=== PATIENT | female | born 1960 | race Caucasian/White ===

== ENCOUNTER 2020-01-18 12:16 | Outpatient (REF) | payer OTHER, SELFPAY ==
--- NOTE | 2020-01-18 12:52 | XR_ITS ---
EXAMINATION: XR FOOT, RIGHT CLINICAL INFORMATION: Pain COMPARISON: Previous x-ray November 2015 TECHNIQUE: AP, lateral, and oblique views of the right foot. FINDINGS: Bone alignment is normal. No fracture or dislocation is seen. Joint spaces are normal. There are calcaneal spurs. Soft tissues are otherwise normal. XR/XR foot RT 2V IMPRESSION: Calcaneal spurs.
[2020-01-18 14:21] LABS: Alanine Aminotransferase 18 U/L (0-31); Albumin Level 3.9 g/dL (3.5-5.0); Alkaline Phosphatase 95 U/L (39-117); Anion Gap 12 (12-20); Aspartate Amino Transferase 19 U/L (5-31); Bilirubin Total 0.5 mg/dL (0.0-1.0); Blood Urea Nitrogen 15 mg/dL (9-16); Calcium 8.8 mg/dL (8.4-10.2); Carbon Dioxide 28 mmol/L (22-29); Chloride 105 mmol/L (96-108); Cholesterol 213 mg/dL; Estimated Glomerular Filt Rate > 60; Glucose Fasting 86 mg/dL (60-99); HDL Cholesterol 49 mg/dL; LDL Cholesterol Calculated 148 mg/dl; Sodium 141 mmol/L (135-145); Total Protein 6.8 g/dL (6.5-8.0); Triglycerides 82 mg/dL
== END 2020-01-18 12:17 | disposition home or self-care (01) ==
LOC: HO.LAB 12:16
PROVIDERS: PCP Internal Medicine; Visit Provider Internal Medicine
DX: M79.671 Pain in right foot (principal); E78.00 Pure hypercholesterolemia, unspecified
CPT/HCPCS: 73620; 80053; 80061

== ENCOUNTER 2020-02-11 11:50 | Outpatient (REF) | payer OTHER, SELFPAY ==
--- NOTE | 2020-02-11 | MM_ITS ---
EXAMINATION: MM SCREENING DIGITAL BREAST TOMOSYNTHESIS, BILATERAL CLINICAL INFORMATION: Screening. Asymptomatic. The lifetime risk of breast cancer based on the Tyrer-Cuzick Model is 6.1%. COMPARISON: Mammography: November 14, 2018 and studies dating back to June 12, 2011 TECHNIQUE: Digital breast tomosynthesis is performed in both the craniocaudal and mediolateral oblique views along with computer-aided detection (CAD). Synthesized 2D images are generated from the tomosynthesis. FINDINGS: There are scattered areas of fibroglandular density (ACR BI-RADS breast composition Category b). There are no significant masses, abnormal calcifications, or other abnormalities. There are numerous bilateral stable benign-appearing calcifications. MM/MM tomosynthesis screening BI IMPRESSION: There are no significant changes from prior study. ASSESSMENT: BI-RADS 1: Negative RECOMMENDATION: Routine annual mammography screening. This patient's information was entered into a reminder system with a target due date for their next mammogram.
== END 2020-02-11 11:51 | disposition home or self-care (01) ==
LOC: HO.MAMMO 11:50
PROVIDERS: PCP Internal Medicine; Visit Provider Internal Medicine
DX: Z12.31 Encounter for screening mammogram for malignant neoplasm of breast (principal)
CPT/HCPCS: 77063; 77067

== ENCOUNTER 2020-02-18 12:41 | Outpatient (REF) | payer OTHER, SELFPAY ==
--- NOTE | 2020-02-18 12:46 | XR_ITS ---
EXAMINATION: XR KNEE, LEFT CLINICAL INFORMATION: Left knee pain COMPARISON: AP standing view both knees from 10/21/2014 TECHNIQUE: AP and lateral views of the left knee . FINDINGS: Obese body habitus. No fracture, subluxation or joint effusion. Moderate loss of medial tibiofemoral joint space with genu varus deformity. Subchondral cysts and osteophytes at the degenerated medial compartment. There are osteophytes of the degenerated patellofemoral and lateral tibiofemoral compartments, as well. No suspicious lytic or osteoblastic lesion. XR/XR knee LT 2V IMPRESSION: Mild worsening of tricompartmental osteoarthrosis of the left knee compared to 10/21/2014.
== END 2020-02-18 12:42 | disposition home or self-care (01) ==
LOC: HO.XRAY 12:41
PROVIDERS: Visit Provider Internal Medicine
DX: M25.562 Pain in left knee (principal)
CPT/HCPCS: 73560

== ENCOUNTER → 2020-02-19 11:03 | Outpatient (BNVA) | payer OTHER, SELFPAY | PROVIDERS: PCP Internal Medicine; Referring Provider Internal Medicine; Visit Provider Hospitalist | DX: Z76.89 Persons encountering health services in other specified circumstances (principal) ==

== ENCOUNTER → 2020-04-12 10:36 | Outpatient (BNVA) | payer OTHER, SELFPAY | PROVIDERS: PCP Internal Medicine; Visit Provider Hospitalist ==

== ENCOUNTER 2020-06-17 08:42 | Outpatient (REF) | payer OTHER, SELFPAY ==
[2020-06-17 10:03] LABS: Alanine Aminotransferase 12 U/L (0-31); Albumin Level 3.8 g/dL (3.5-5.0); Alkaline Phosphatase 89 U/L (39-117); Anion Gap 11 (12-20); Aspartate Amino Transferase 16 U/L (5-31); Blood Urea Nitrogen 17 mg/dL (9-16); Calcium 8.9 mg/dL (8.4-10.2); Carbon Dioxide 27 mmol/L (22-29); Chloride 109 mmol/L (96-108); Cholesterol 223 mg/dL; Estimated Glomerular Filt Rate > 60; Glucose Fasting 95 mg/dL (60-99); HDL Cholesterol 50 mg/dL; LDL Cholesterol Calculated 155 mg/dl; Potassium 4.2 mmol/L (3.3-5.1); Sodium 143 mmol/L (135-145); Total Protein 6.9 g/dL (6.5-8.0); Triglycerides 92 mg/dL
[2020-06-17 10:15] LABS: Bilirubin Total 0.4 mg/dL (0.0-1.0)
== END 2020-06-17 08:43 | disposition home or self-care (01) ==
LOC: HO.LAB 08:42
PROVIDERS: PCP Internal Medicine; Visit Provider Internal Medicine
DX: E78.00 Pure hypercholesterolemia, unspecified (principal); E78.5 Hyperlipidemia, unspecified
CPT/HCPCS: 36415; 80053; 80061

== ENCOUNTER → 2020-07-12 12:56 | Outpatient (BNVA) | payer OTHER, SELFPAY | PROVIDERS: PCP Internal Medicine; Visit Provider Hospitalist | DX: K21.9 Gastro-esophageal reflux disease without esophagitis (principal); G47.33 Obstructive sleep apnea (adult) (pediatric); J45.20 Mild intermittent asthma, uncomplicated; Z99.89 Dependence on other enabling machines and devices | CPT/HCPCS: 99212 ==

== ENCOUNTER → 2020-12-07 10:58 | Outpatient (BNVA) | payer OTHER, SELFPAY | PROVIDERS: PCP Internal Medicine; Referring Provider Internal Medicine; Visit Provider Internal Medicine Cardiovascular Disease | DX: I48.0 Paroxysmal atrial fibrillation (principal) | CPT/HCPCS: 93005; 99212 ==

== ENCOUNTER → 2020-12-26 10:46 | Outpatient (REF) | payer OTHER, SELFPAY ==
--- NOTE | 2020-12-26 10:50 | HM_ITS ---
Total monitoring time 5 days. Underlying rhythm is sinus. Minimum 56/Min. Maximum 139/Min. Average 80/Min. No atrial fibrillation or flutter. No pauses or AV blocks. 51 supraventricular episodes; longest 18 beats. Rare supraventricular ectopy with a burden of 0.19%. Rare ventricular ectopy with a burden of 0.35%. No patient events. MTDD
== END ==
LOC: HO.CARD 10:46
PROVIDERS: PCP Internal Medicine; Visit Provider Internal Medicine Cardiovascular Disease
DX: I48.0 Paroxysmal atrial fibrillation (principal)
CPT/HCPCS: 93242

== ENCOUNTER 2021-01-16 11:13 | Outpatient (REF) | payer OTHER, SELFPAY ==
[2021-01-16 11:48] LABS: COVID-19 Test Negative (Negative)
== END 2021-01-16 11:14 | disposition home or self-care (01) ==
LOC: HO.LAB 11:13
PROVIDERS: Visit Provider Internal Medicine
DX: Z20.822 Contact with and (suspected) exposure to COVID-19 (principal)
CPT/HCPCS: 36415; 87635; C9803

== ENCOUNTER → 2021-02-20 12:27 | Outpatient (BNVA) | payer OTHER, SELFPAY | PROVIDERS: PCP Internal Medicine; Referring Provider Internal Medicine; Visit Provider Internal Medicine Cardiovascular Disease | DX: I48.0 Paroxysmal atrial fibrillation (principal); R00.2 Palpitations | CPT/HCPCS: 99212 ==

== ENCOUNTER 2021-03-31 12:14 | Outpatient (REF) | payer OTHER, SELFPAY ==
[2021-03-31 12:30] LABS: Binax Internal Control QC Valid; Binax Now Covid-19 Ag Negative (Negative)
== END 2021-03-31 12:15 | disposition home or self-care (01) ==
LOC: HO.LAB 12:14
PROVIDERS: PCP Internal Medicine; Visit Provider Internal Medicine
DX: Z20.822 Contact with and (suspected) exposure to COVID-19 (principal)
CPT/HCPCS: C9803

== ENCOUNTER 2021-05-12 11:21 | Outpatient (REF) | payer OTHER, SELFPAY ==
--- NOTE | ~2021-05-12 | MM_ITS ---
EXAMINATION: MM SCREENING DIGITAL BREAST TOMOSYNTHESIS, BILATERAL CLINICAL INFORMATION: Screening. Asymptomatic. The lifetime risk of breast cancer based on the Tyrer-Cuzick Model is 5%. COMPARISON: Mammography: 02/11/2020, 11/14/2018, 11/12/2017, 09/14/2016 TECHNIQUE: Digital breast tomosynthesis is performed in both the craniocaudal and mediolateral oblique views along with computer-aided detection (CAD). Synthesized 2D images are generated from the tomosynthesis. FINDINGS: There are scattered areas of fibroglandular density (ACR BI-RADS breast composition Category b). There are no significant masses, abnormal calcifications, or other abnormalities. Parenchymal pattern is similar to prior studies. Nodular asymmetries outer right breast are stable. There is biopsy clip marker again seen mid 9:00 left breast. Neither breast shows developing density or interval architectural changes or abnormal calcifications. The axilla and skin contours are unremarkable. No significant changes. MM/MM tomosynthesis screening BI IMPRESSION: No significant changes from prior exams. ASSESSMENT: BI-RADS 2: Benign RECOMMENDATION: Routine annual mammography screening. This patient's information was entered into a reminder system with a target due date for their next mammogram.
== END 2021-05-12 11:22 | disposition home or self-care (01) ==
LOC: HO.MAMMO 11:21
PROVIDERS: Visit Provider Internal Medicine
DX: Z12.31 Encounter for screening mammogram for malignant neoplasm of breast (principal)
CPT/HCPCS: 77063; 77067

== ENCOUNTER → 2021-05-29 10:10 | Outpatient (BNVA) | payer OTHER, SELFPAY | PROVIDERS: PCP Internal Medicine; Visit Provider Hospitalist | DX: G47.33 Obstructive sleep apnea (adult) (pediatric) (principal); R40.0 Somnolence; J45.20 Mild intermittent asthma, uncomplicated; J06.9 Acute upper respiratory infection, unspecified; I48.0 Paroxysmal atrial fibrillation; I10 Essential (primary) hypertension; E78.00 Pure hypercholesterolemia, unspecified; E55.9 Vitamin D deficiency, unspecified; K21.9 Gastro-esophageal reflux disease without esophagitis; E66.01 Morbid (severe) obesity due to excess calories; Z68.41 Body mass index [BMI] 40.0-44.9, adult; Z88.8 Allergy status to other drugs, medicaments and biological substances; Z99.89 Dependence on other enabling machines and devices; Z79.899 Other long term (current) drug therapy | CPT/HCPCS: 99212 ==

== ENCOUNTER 2021-06-28 10:33 | Outpatient (REF) | payer OTHER, SELFPAY ==
[2021-06-28 11:04] LABS: MANUAL DIFF FLAG NO
[2021-06-28 11:46] LABS: Basophils Absolute Auto 0.1 X10*3/uL (0.0-0.2); Eosinophils Absolute Auto 0.1 X10*3/uL (0.0-0.4); Eosinophils Percent Auto 1.4 % (0-4); Hematocrit 38.9 % (37.0-47.0); Hemoglobin 12.9 g/dl (12.0-16.0); Imm Gran Abs Auto 0.03 X10*3/uL (0.00-0.03); Imm Gran Pct Auto 0.5 % (0.0-0.4); Lymphocytes Absolute Auto 2.1 X10*3/uL (1.2-4.9); Lymphocytes Percent Auto 32.5 % (20-40); Mean Corpuscular HGB Conc 33.2 g/dl (31.0-35.0); Mean Corpuscular Hemoglobin 29.6 pg (27.0-33.0); Mean Corpuscular Volume 89.2 fL (80.0-98.0); Mean Platelet Volume 10.5 fL (9.4-12.3); Monocytes Absolute Auto 0.5 X10*3/uL (0.1-1.2); Monocytes Percent Auto 8.1 % (2-11); Neutrophils Absolute Auto 3.6 x10*3/uL (2.0-8.3); Neutrophils Percent Auto 56.5 % (45-73); Platelet Count 353 X10*3/uL (160-400); Red Blood Count 4.36 X10*6/uL (4.20-5.50); Red Cell Distribution Width 14.7 % (11.0-16.0); White Blood Count 6.3 X10*3/uL (4.8-10.8)
[2021-06-28 12:26] LABS: Alanine Aminotransferase 15 U/L (0-31); Albumin Level 3.8 g/dL (3.5-5.0); Alkaline Phosphatase 101 U/L (39-117); Anion Gap 11 (12-20); Aspartate Amino Transferase 17 U/L (5-31); Bilirubin Total 0.6 mg/dL (0.0-1.0); Blood Urea Nitrogen 17 mg/dL (9-16); C Reactive Protein 0.56 mg/dL (< or = 0.50); Calcium 9.5 mg/dL (8.4-10.2); Carbon Dioxide 28 mmol/L (22-29); Chloride 104 mmol/L (96-108); Cholesterol 210 mg/dL; Estimated Glomerular Filt Rate > 60; Glucose Fasting 89 mg/dL (60-99); HDL Cholesterol 43 mg/dL; LDL Cholesterol Calculated 143 mg/dl; Potassium 4.1 mmol/L (3.3-5.1); Rheumatoid Factor < 15.0 IU/mL (<15.0); Sodium 139 mmol/L (135-145); Total Protein 7.5 g/dL (6.5-8.0); Triglycerides 121 mg/dL
[2021-06-28 12:31] LABS: Erythrocyte Sedimentation Rate 36 MM/HR (0-20)
[2021-06-30 12:52] LABS: Anti Nuclear Antibody Screen NEGATIVE (NEGATIVE)
[2021-06-30 21:22] LABS: Anti DNA DS Antibody 1 IU/mL
[2021-06-30 23:52] LABS: Cyclic Citrullinated Peptide <16 UNITS
[2021-07-02 14:17] LABS: Vitamin D 25-OH, D2 <4 ng/mL; Vitamin D 25-OH, D3 29 ng/mL; Vitamin D 25-OH, Total 29 ng/mL (30-100)
== END 2021-06-28 10:34 | disposition home or self-care (01) ==
LOC: HO.LAB 10:33
PROVIDERS: PCP Internal Medicine; Visit Provider Internal Medicine
DX: M25.50 Pain in unspecified joint (principal); E55.9 Vitamin D deficiency, unspecified; E78.5 Hyperlipidemia, unspecified; E66.9 Obesity, unspecified; D64.9 Anemia, unspecified
CPT/HCPCS: 36415; 80053; 80061; 82306; 85025; 85652; 86038; 86039; 86140; 86200; 86225; 86431

== ENCOUNTER → 2021-09-08 09:26 | Outpatient (BNVA) | payer OTHER, SELFPAY | PROVIDERS: PCP Internal Medicine | DX: R31.0 Gross hematuria (principal) | CPT/HCPCS: 99202 ==

== ENCOUNTER 2021-09-08 16:32 | Outpatient (REF) | payer OTHER, SELFPAY ==
[2021-09-08 16:40] LABS: Urine Cytology See Pathology rpt
== END 2021-09-08 16:33 | disposition home or self-care (01) ==
LOC: HO.LNP 16:32
DX: R31.9 Hematuria, unspecified (principal)
CPT/HCPCS: 88112

== ENCOUNTER 2021-10-26 08:46 | Outpatient (REF) | payer OTHER, SELFPAY ==
--- NOTE | ~2021-10-26 | US_ITS ---
EXAMINATION: US RETROPERITONEAL LIMITED (RENAL ONLY) CLINICAL INFORMATION: Gross hematuria. COMPARISON: Ultrasound kidneys and bladder 10/26/2016. Renal ultrasound 08/23/2016. X-ray abdomen KUB 04/09/2016. TECHNIQUE: Real-time imaging of the kidneys. FINDINGS: RIGHT KIDNEY: 11.0 x 5.6 x 5.6 cm (SAG x AP x TRV). The kidney is normal in size, contour, and echogenicity. Renal cortical thickness is normal. No calculi or focal parenchymal lesions. No hydronephrosis. LEFT KIDNEY: 12.6 x 4.8 x 5.0 cm (SAG x AP x TRV). The kidney is normal in size, contour, and echogenicity. Renal cortical thickness is normal. No renal calculi or hydronephrosis. There is an anechoic cyst midpole measuring 1.9 x 2.7 x 2.6 cm versus prominent renal pelvis. US/US renal BI IMPRESSION: Prominent renal pelvis versus midpole cyst measuring left kidney. No echogenic renal calculi seen.
== END 2021-10-26 08:47 | disposition home or self-care (01) ==
LOC: HO.US 08:46
DX: R31.0 Gross hematuria (principal)
CPT/HCPCS: 76775

== ENCOUNTER → 2021-11-06 15:24 | Outpatient (BNVA) | payer OTHER, SELFPAY | PROVIDERS: PCP Internal Medicine; Referring Provider Internal Medicine; Visit Provider Internal Medicine Cardiovascular Disease | DX: I48.0 Paroxysmal atrial fibrillation (principal); R00.2 Palpitations; E78.5 Hyperlipidemia, unspecified; G47.33 Obstructive sleep apnea (adult) (pediatric); Z79.899 Other long term (current) drug therapy | CPT/HCPCS: 93005; 99212 ==

== ENCOUNTER 2021-11-21 09:08 | Outpatient (REF) | payer OTHER, SELFPAY ==
[2021-11-21 09:26] LABS: MANUAL DIFF FLAG NO
[2021-11-21 09:54] LABS: Basophils Absolute Auto 0.1 X10*3/uL (0.0-0.2); Eosinophils Absolute Auto 0.1 X10*3/uL (0.0-0.4); Eosinophils Percent Auto 1.7 % (0-4); Hematocrit 37.2 % (37.0-47.0); Hemoglobin 12.1 g/dl (12.0-16.0); Imm Gran Abs Auto 0.01 X10*3/uL (0.00-0.03); Imm Gran Pct Auto 0.2 % (0.0-0.4); Lymphocytes Absolute Auto 1.9 X10*3/uL (1.2-4.9); Lymphocytes Percent Auto 36.5 % (20-40); Mean Corpuscular HGB Conc 32.5 g/dl (31.0-35.0); Mean Corpuscular Hemoglobin 28.9 pg (27.0-33.0); Mean Platelet Volume 10.6 fL (9.4-12.3); Monocytes Absolute Auto 0.5 X10*3/uL (0.1-1.2); Monocytes Percent Auto 9.9 % (2-11); Neutrophils Absolute Auto 2.7 x10*3/uL (2.0-8.3); Neutrophils Percent Auto 50.7 % (45-73); Platelet Count 324 X10*3/uL (160-400); Red Blood Count 4.18 X10*6/uL (4.20-5.50); Red Cell Distribution Width 14.8 % (11.0-16.0); White Blood Count 5.2 X10*3/uL (4.8-10.8)
[2021-11-21 10:26] LABS: Alanine Aminotransferase 17 U/L (0-31); Albumin Level 3.6 g/dL (3.5-5.0); Alkaline Phosphatase 101 U/L (39-117); Anion Gap 12 (12-20); Aspartate Amino Transferase 20 U/L (5-31); Bilirubin Total 0.4 mg/dL (0.0-1.0); Blood Urea Nitrogen 18 mg/dL (9-16); Calcium 9.2 mg/dL (8.4-10.2); Carbon Dioxide 29 mmol/L (22-29); Chloride 106 mmol/L (96-108); Cholesterol 214 mg/dL; Estimated Glomerular Filt Rate > 60; Glucose Fasting 93 mg/dL (60-99); HDL Cholesterol 50 mg/dL; LDL Cholesterol Calculated 147 mg/dl; Potassium 4.6 mmol/L (3.3-5.1); Sodium 142 mmol/L (135-145); Total Protein 6.9 g/dL (6.5-8.0); Triglycerides 88 mg/dL
== END 2021-11-21 09:09 | disposition home or self-care (01) ==
LOC: HO.LAB 09:08
PROVIDERS: PCP Internal Medicine; Visit Provider Internal Medicine
DX: R00.2 Palpitations (principal); E78.5 Hyperlipidemia, unspecified
CPT/HCPCS: 36415; 80053; 80061; 85025

== ENCOUNTER → 2021-11-28 11:05 | Outpatient (BNVA) | payer OTHER, SELFPAY | PROVIDERS: PCP Internal Medicine; Visit Provider Hospitalist | DX: G47.33 Obstructive sleep apnea (adult) (pediatric) (principal); J45.40 Moderate persistent asthma, uncomplicated; K21.9 Gastro-esophageal reflux disease without esophagitis; M79.89 Other specified soft tissue disorders; Z99.89 Dependence on other enabling machines and devices | CPT/HCPCS: 99212 ==

== ENCOUNTER → 2022-01-10 10:57 | Outpatient (REF) | payer OTHER, SELFPAY ==
--- NOTE | 2022-01-10 11:05 | HM_ITS ---
* Total monitoring time 7 days and 4 hours. * Underlying rhythm is sinus. Average ventricular rate 85/Min. Range 53 to 143/Min. * Occasional supraventricular ectopy. Short runs noted. Longest 23 beats. * Occasional ventricular ectopy. Some couplets but no runs. * No significant pauses or AV blocks. * Palpitations noted in patient diary could be from the above, but the exact times do not correlate. MTDD
== END ==
LOC: HO.CARD 10:57
PROVIDERS: PCP Internal Medicine; Visit Provider Internal Medicine Cardiovascular Disease
DX: R00.2 Palpitations (principal)
CPT/HCPCS: 93242

== ENCOUNTER 2022-01-18 11:03 | Outpatient (REF) | payer OTHER, SELFPAY ==
[2022-01-18 12:27] LABS: Alanine Aminotransferase 14 U/L (0-31); Albumin Level 3.9 g/dL (3.5-5.0); Alkaline Phosphatase 95 U/L (39-117); Anion Gap 16 (12-20); Aspartate Amino Transferase 20 U/L (5-31); Bilirubin Total 0.7 mg/dL (0.0-1.0); Blood Urea Nitrogen 19 mg/dL (9-16); Calcium 8.9 mg/dL (8.4-10.2); Carbon Dioxide 24 mmol/L (22-29); Chloride 105 mmol/L (96-108); Cholesterol 183 mg/dL; Estimated Glomerular Filt Rate > 60; Glucose Fasting 97 mg/dL (60-99); HDL Cholesterol 53 mg/dL; LDL Cholesterol Calculated 115 mg/dl; Potassium 4.1 mmol/L (3.3-5.1); Sodium 141 mmol/L (135-145); Total Protein 7.2 g/dL (6.5-8.0); Triglycerides 75 mg/dL
[2022-01-18 12:49] LABS: Appearance Urine Clear; Color Urine Dark Yellow; Glucose Urine UA Negative (Negative); Leukocyte Esterase Urine Negative (Negative); Nitrite Urine Negative (Negative); PH 5.5 (5.0-9.0); Specific Gravity - Urine >= 1.030 (1.005-1.025); UMIC TRIGGER UACC YES; Urine Blood Moderate (2+) (Negative); Urine Ketones 15 mg/dL (Negative); Urine Protein Trace mg/dL (Neg-Trace)
[2022-01-18 12:52] LABS: Bacteria Urine 1+ (None Seen); WBC Urine 0-5 /HPF (0-5)
[2022-01-18 13:01] LABS: Vitamin D 25-OH Total 37.8 ng/mL (>30)
== END 2022-01-18 11:04 | disposition home or self-care (01) ==
LOC: HO.LAB 11:03
PROVIDERS: PCP Internal Medicine; Visit Provider Internal Medicine
DX: E78.5 Hyperlipidemia, unspecified (principal); E55.9 Vitamin D deficiency, unspecified; R00.2 Palpitations; R31.0 Gross hematuria
CPT/HCPCS: 36415; 80053; 80061; 81001; 82306

== ENCOUNTER → 2022-02-07 14:04 | Outpatient (BNVA) | payer OTHER, SELFPAY | PROVIDERS: PCP Internal Medicine; Referring Provider Internal Medicine; Visit Provider Internal Medicine Cardiovascular Disease | DX: R00.2 Palpitations (principal); Z79.899 Other long term (current) drug therapy | CPT/HCPCS: 99212 ==

== ENCOUNTER 2022-02-23 13:51 | Outpatient (REF) | payer OTHER, SELFPAY ==
[2022-02-23 16:53] LABS: Urine Cytology See Pathology rpt
== END 2022-02-23 13:52 | disposition home or self-care (01) ==
LOC: HO.LAB 13:51
PROVIDERS: Visit Provider Urology
DX: R31.0 Gross hematuria (principal); R39.9 Unspecified symptoms and signs involving the genitourinary system; R82.71 Bacteriuria; R10.9 Unspecified abdominal pain
CPT/HCPCS: 51798; 87086; 88112; 99212

== ENCOUNTER 2022-05-24 12:52 | Outpatient (REF) | payer OTHER, SELFPAY | END 2022-05-24 12:53 | disposition home or self-care (01) | LOC: HO.US 12:52 | PROVIDERS: PCP Internal Medicine; Visit Provider Internal Medicine | DX: Z13.89 Encounter for screening for other disorder (principal) ==

== ENCOUNTER 2022-05-25 08:44 | Outpatient (REF) | payer OTHER, SELFPAY ==
--- NOTE | ~2022-05-25 | US_ITS ---
EXAMINATION: US COMPLETE ABDOMEN WITH LIVER ELASTOGRAPHY CLINICAL INFORMATION: Left upper quadrant pain. COMPARISON: Renal ultrasound 10/26/2021. TECHNIQUE: Real-time imaging of the abdominal viscera. Noninvasive ultrasound liver fibrosis assessment is performed using Taty ElastPQ point quantification shear wave elastography (2D-SWE) with a C5-2 MHz transducer. Multiple elastography samples are obtained. FINDINGS: PANCREAS: Normal. The visualized pancreatic head and body are normal in appearance. The remainder of the pancreas is obscured from visualization by the overlying bowel gas. ABDOMINAL AORTA: The proximal, middle, and distal aortic segments are normal in caliber. INFERIOR VENA CAVA: Visualized portions are normal. LIVER: The liver demonstrates normal size, contour and heterogeneous echotexture. No focal lesion or intrahepatic biliary duct dilatation. The right lobe measures 15.5 cm in length. The left lobe measures 11.2 cm in length. Portal flow is hepatopedal. Shear wave liver elastography median stiffness is 2.21 m/s (reference: normal median stiffness is 1.3 m/s or less). IQR/median stiffness to assess sampling precision is 0.09 (reference: good quality data set is IQR/median stiffness of 0.15 or less). GALLBLADDER: Normal. The gallbladder is physiologically distended without evidence of stones, sludge, polyps, wall thickening or pericholecystic fluid. COMMON BILE DUCT: Normal in caliber measuring 0.3 cm in diameter. RIGHT KIDNEY: Normal. No hydronephrosis. No renal calculi or focal parenchymal lesions. The kidney measures 9.9 cm in maximum dimension. LEFT KIDNEY: There is anechoic cyst in midpole measuring 2.0 x 2.8 x 2.8 cm. No hydronephrosis. No renal calculi or focal parenchymal lesions. The kidney measures 11.9 cm in maximum dimension. SPLEEN: Normal. The spleen measures 9.0 cm in maximum dimension. FREE FLUID: None. US/US abdomen comp w elastography IMPRESSION: 1. Heterogeneous echotexture of liver without focal lesion or intrahepatic ductal dilatation. 2. Midpole left renal simple cyst. 3. Liver elastography: The liver stiffness measures 2.21 m/s cACLD (ruled in). REFERENCE: Society of Radiologists in Ultrasound Liver Stiffness Thresholds (2019): LIVER STIFFNESS THRESHOLDS: *Liver Stiffness equal or less than 1.3 m/s: High probability of being normal. *Liver Stiffness less than 1.7 m/s: In the absence of other known clinical signs, rules out compensated advanced chronic liver disease. *Liver Stiffness 1.7-2.1 m/s: Suggestive of compensated advanced chronic liver disease but need further test for confirmation. *Liver Stiffness over 2.1 m/s: Rules in compensated advanced chronic liver disease. *Liver Stiffness over 2.4 m/s: Suggestive of clinically significant portal hypertension. QUALITY OF DATA SET: *IQR/Median value equal or less than 0.15 implies a quality data set. *IQR/Median value over 0.15 implies a poor quality data set. SIGNIFICANT CHANGE FROM PRIOR EXAM: Significant change if liver stiffness measurement is 10% or greater from prior exam. OTHER CONSIDERATIONS: The stage of liver fibrosis may be overestimated in the setting of acute hepatitis, liver inflammation, elevated liver function tests, hepatic vascular congestion, obstructive cholestasis, non-fasting state, and infiltrative diseases such as amyloidosis and lymphoma. In some patients with NAFLD, the liver stiffness thresholds for compensated advanced chronic liver disease may be lower. In causes other than viral hepatitis and NAFLD, liver stiffness thresholds are not well established.
== END 2022-05-25 08:45 | disposition home or self-care (01) ==
LOC: HO.US 08:44
PROVIDERS: PCP Internal Medicine; Visit Provider Internal Medicine
DX: R10.12 Left upper quadrant pain (principal)
CPT/HCPCS: 76705; 76981

== ENCOUNTER → 2022-05-28 10:57 | Outpatient (BNVA) | payer OTHER, SELFPAY | PROVIDERS: PCP Internal Medicine; Visit Provider Hospitalist | DX: G47.33 Obstructive sleep apnea (adult) (pediatric) (principal); R06.00 Dyspnea, unspecified; J45.40 Moderate persistent asthma, uncomplicated; R10.12 Left upper quadrant pain; K21.9 Gastro-esophageal reflux disease without esophagitis; Z99.89 Dependence on other enabling machines and devices | CPT/HCPCS: 99212 ==

== ENCOUNTER → 2022-05-30 14:36 | Outpatient (BNVA) | payer OTHER, SELFPAY | PROVIDERS: PCP Internal Medicine; Referring Provider Internal Medicine; Visit Provider Internal Medicine Cardiovascular Disease | DX: R00.2 Palpitations (principal); E78.00 Pure hypercholesterolemia, unspecified | CPT/HCPCS: 93005; 99212 ==

== ENCOUNTER 2022-06-25 13:58 | Outpatient (REF) | payer OTHER, SELFPAY ==
--- NOTE | ~2022-06-25 | MM_ITS ---
EXAMINATION: MM SCREENING DIGITAL BREAST TOMOSYNTHESIS, BILATERAL CLINICAL INFORMATION: Screening. Asymptomatic. The lifetime risk of breast cancer based on the Tyrer-Cuzick Model is 4.4%. COMPARISON: Mammography: May 12, 2021 and studies dating back to August 18, 2015 TECHNIQUE: Digital breast tomosynthesis is performed in both the craniocaudal and mediolateral oblique views along with computer-aided detection (CAD). Synthesized 2D images are generated from the tomosynthesis. FINDINGS: There are scattered areas of fibroglandular density (ACR BI-RADS breast composition Category b). There are no new significant masses, abnormal calcifications, or other abnormalities. MM/MM tomosynthesis screening BI IMPRESSION: No significant changes from prior exam. ASSESSMENT: BI-RADS 1: Negative RECOMMENDATION: Routine annual mammography screening. This patient's information was entered into a reminder system with a target due date for their next mammogram.
== END 2022-06-25 13:59 | disposition home or self-care (01) ==
LOC: HO.MAMMO 13:58
PROVIDERS: PCP Internal Medicine; Visit Provider Internal Medicine
DX: Z12.31 Encounter for screening mammogram for malignant neoplasm of breast (principal)
CPT/HCPCS: 77063; 77067

== ENCOUNTER 2022-07-20 13:24 | Outpatient (REF) | payer OTHER, SELFPAY ==
[2022-07-20 17:04] LABS: Urine Cytology See Pathology rpt
== END 2022-07-20 13:25 | disposition home or self-care (01) ==
LOC: HO.LAB 13:24
PROVIDERS: PCP Internal Medicine; Visit Provider Urology
DX: R31.0 Gross hematuria (principal); R10.9 Unspecified abdominal pain; R39.9 Unspecified symptoms and signs involving the genitourinary system
CPT/HCPCS: 52000; 88112

== ENCOUNTER 2022-08-09 09:14 | Outpatient (REF) | payer OTHER, SELFPAY | END 2022-08-09 09:15 | disposition home or self-care (01) | LOC: HO.LAB 09:14 | PROVIDERS: PCP Internal Medicine; Visit Provider Internal Medicine | DX: R39.9 Unspecified symptoms and signs involving the genitourinary system (principal) | CPT/HCPCS: 87086 ==

== ENCOUNTER 2022-08-23 08:56 | Outpatient (REF) | payer OTHER, SELFPAY ==
[2022-08-23 09:11] LABS: MANUAL DIFF FLAG NO
[2022-08-23 09:32] LABS: Basophils Percent Auto 0.4 % (0-2); Eosinophils Absolute Auto 0.1 X10*3/uL (0.0-0.4); Eosinophils Percent Auto 0.9 % (0-4); Hematocrit 37.7 % (37.0-47.0); Hemoglobin 12.5 g/dl (12.0-16.0); Imm Gran Abs Auto 0.03 X10*3/uL (0.00-0.03); Imm Gran Pct Auto 0.4 % (0.0-0.4); Lymphocytes Percent Auto 28.1 % (20-40); Mean Corpuscular HGB Conc 33.2 g/dl (31.0-35.0); Mean Corpuscular Hemoglobin 29.7 pg (27.0-33.0); Mean Corpuscular Volume 89.5 fL (80.0-98.0); Mean Platelet Volume 10.6 fL (9.4-12.3); Monocytes Absolute Auto 0.6 X10*3/uL (0.1-1.2); Monocytes Percent Auto 7.8 % (2-11); Neutrophils Absolute Auto 4.4 x10*3/uL (2.0-8.3); Neutrophils Percent Auto 62.4 % (45-73); Platelet Count 331 X10*3/uL (160-400); Red Blood Count 4.21 X10*6/uL (4.20-5.50); Red Cell Distribution Width 14.6 % (11.0-16.0); White Blood Count 7.1 X10*3/uL (4.8-10.8)
[2022-08-23 10:50] LABS: Alanine Aminotransferase 12 U/L (0-31); Albumin Level 3.7 g/dL (3.5-5.0); Alkaline Phosphatase 89 U/L (39-117); Anion Gap 12 (12-20); Aspartate Amino Transferase 16 U/L (5-31); Bilirubin Total 0.6 mg/dL (0.0-1.0); Blood Urea Nitrogen 21 mg/dL (9-16); Calcium 8.9 mg/dL (8.4-10.2); Carbon Dioxide 26 mmol/L (22-29); Chloride 107 mmol/L (96-108); Cholesterol 216 mg/dL; Estimated Glomerular Filt Rate > 60; Glucose Fasting 90 mg/dL (60-99); HDL Cholesterol 46 mg/dL; Iron 59 mcg/dL (30-160); LDL Cholesterol Calculated 148 mg/dl; Percent Iron Saturation 19 % (15-50); Sodium 141 mmol/L (135-145); Total Iron Binding Capacity 306 mcg/dL (228-428); Total Protein 7.4 g/dL (6.5-8.0); Triglycerides 110 mg/dL; Unsaturated Iron Binding 247 ug/dL
[2022-08-23 11:05] LABS: Vitamin D 25-OH Total 39.9 ng/mL (>30)
[2022-08-23 11:17] LABS: Folate 9.2 ng/mL (> or = 4.0); Vitamin B12 301 pg/mL (200-900)
== END 2022-08-23 08:57 | disposition home or self-care (01) ==
LOC: HO.LAB 08:56
PROVIDERS: Internal Medicine; Visit Provider Urology
DX: E66.01 Morbid (severe) obesity due to excess calories (principal); Z68.41 Body mass index [BMI] 40.0-44.9, adult; E78.5 Hyperlipidemia, unspecified; E53.8 Deficiency of other specified B group vitamins; E55.9 Vitamin D deficiency, unspecified; D64.9 Anemia, unspecified
CPT/HCPCS: 36415; 80053; 80061; 82306; 82607; 82746; 83540; 85025

== ENCOUNTER 2022-09-03 08:58 | Outpatient (REF) | payer OTHER, SELFPAY ==
--- NOTE | ~2022-09-03 | CT_ITS ---
EXAMINATION: CT UROGRAM WITHOUT AND WITH CONTRAST CLINICAL INFORMATION: Hematuria COMPARISON: None available. TECHNIQUE: Noncontrast CT of the abdomen and pelvis is performed followed by split bolus contrast-enhanced images using 85 mL Omnipaque 350 contrast.? Postcontrast imaging is performed during the combined nephrogram and excretion phase. Sagittal and coronal reformatted images were obtained on the technologist's workstation for both the precontrast and postcontrast phases. This CT examination was performed using dose optimization techniques as appropriate, variously including the following: *Automated exposure control *Adjustment of mA and/or kV according to patient size (this includes techniques or standardized protocols for targeted exams where dose is matched to indication/reason for exam; i.e. extremities or head) *Use of iterative reconstruction technique DLP: 1039 mGy-cm FINDINGS: LUNG BASES: The visualized lung bases are unremarkable. LIVER, GALLBLADDER, AND BILIARY TREE: The liver is normal in size, shape, and attenuation. No focal hepatic lesion or biliary ductal dilatation is present. The gallbladder is unremarkable with no evidence of radiopaque gallstones, gallbladder wall thickening, or obvious pericholecystic inflammatory changes. PANCREAS: Unremarkable. SPLEEN: Unremarkable. ADRENAL GLANDS: Unremarkable. KIDNEYS AND URETERS: The kidneys are normal in size, shape, and attenuation. The left kidney measures 12.0 cm in length with the right kidney measuring 10.8 cm. There is a 4 x 2 mm nonobstructing left lower pole renal calculus that measures about 500 Hounsfield units and is 14 cm from the posterior axillary line. No hydronephrosis, hydroureter, or calculi seen. No perinephric stranding. There is some minimal prominence of the left collecting system caused by compression of the renal pelvis by a benign Bosniak class I 3.0 cm renal cyst near the renal pelvis. This has been seen on prior imaging studies and needs no additional imaging or follow-up. No solid renal masses are seen. A few other smaller cysts are present including an approximately 1 cm cyst in the right mid kidney medially (9:159) which also needs no additional imaging or follow-up. No solid renal masses are seen. Collecting systems appear normal without filling defects or mucosal abnormalities. The ureters are nondilated. BLADDER: Unremarkable. GASTROINTESTINAL TRACT: Moderate-sized hiatal hernia is present. The small and large bowel are unremarkable aside from sigmoid diverticulosis without diverticulitis. The appendix is not seen but there is no evidence of appendicitis. ABDOMINAL WALL: No significant hernia is appreciated. LYMPH NODES: Normal. VASCULAR: Unremarkable. PELVIC VISCERA: The uterus is not seen. An abnormal adnexal mass or free intraperitoneal fluid is not present. OSSEUS STRUCTURES: Degenerative changes are seen in the spine most marked at L2-L3. CT/CT urogram IMPRESSION: 1. A cause for the patient's hematuria has not been found aside from the presence of a 4 x 2 mm nonobstructing left lower pole renal calculus. 2. Incidental note made of benign Bosniak class I renal cysts which need no additional imaging or follow-up, sigmoid diverticulosis and degenerative changes in the spine.
[2022-09-03] MEDS: iohexoL 350 MG/ML 100 ML INFUS..BTL IV (09:57)
== END 2022-09-03 08:59 | disposition home or self-care (01) ==
LOC: HO.CT 08:58
PROVIDERS: PCP Internal Medicine; Visit Provider Urology
DX: R31.9 Hematuria, unspecified (principal); R10.9 Unspecified abdominal pain; N13.30 Unspecified hydronephrosis
CPT/HCPCS: 74178; Q9967

== ENCOUNTER 2022-09-06 | Outpatient (REF) | payer OTHER, SELFPAY | END 2022-09-06 00:01 | disposition home or self-care (01) | LOC: CF | PROVIDERS: PCP Internal Medicine; Visit Provider Urology | DX: N20.0 Calculus of kidney (principal); N28.1 Cyst of kidney, acquired; R31.29 Other microscopic hematuria | CPT/HCPCS: 99212 ==

== ENCOUNTER 2022-09-21 08:44 | Outpatient (REF) | payer OTHER, SELFPAY ==
--- NOTE | ~2022-09-21 | MM_ITS ---
EXAMINATION: BONE DENSITOMETRY CLINICAL INDICATION: Unspecified menopausal and perimenopausal disorder. COMPARISON: Baseline BD dated 03/07/2018. TECHNIQUE: Using a [employer] DXA System (software version: 13.1) manufactured by [employer], dual-energy x-ray absorptiometry was performed of the lumbar spine and left hip. The images are of good technical quality. Summary results are attached. FINDINGS: LEFT FEMUR, NECK: Current: BMD 0.760 g/cm2, Z-score -1.3, T-score -2.0, osteopenia. Baseline: BMD 0.848 g/cm2. LEFT FEMUR, TOTAL: Current: BMD 0.712 g/cm2, Z-score -2.0, T-score -2.3, osteopenia, 16.7% decrease from baseline (<5% change is not significant). Baseline: BMD 0.855 g/cm2. AP SPINE L1-L4: Current: BMD 0.978 g/cm2, Z-score -1.3, T-score -1.7, osteopenia, 1.2% increase from baseline (<5% change is not significant). Baseline: BMD 0.966 g/cm2. IDENTIFIED RISK FACTORS: Early menopause, secondary osteoporosis, hysterectomy, bilateral oophorectomy. HISTORY OF FRACTURE: None listed. MEDICATIONS: Vitamin D. MM/XR DEXA axial skeleton IMPRESSION: 1. DIAGNOSIS: Osteopenia based on the lowest T-score value of -2.3 in the total femur applying World Health Organization criteria. 2. 10-YEAR FRACTURE RISK PREDICTION, FRAX: Major osteoporotic fracture (clinical spine, forearm, hip or shoulder) 5.1%. Hip fracture 0.7%. 3. Treatment Recommendations: NOF guidelines recommend consideration for treatment in postmenopausal women and men age 50 and older presenting with the following: -A hip or vertebral (clinical or morphometric) fracture. -T-score less than or equal to -2.5 at the femoral neck or spine after appropriate evaluation to exclude secondary causes. -Low bone mass at the hip or spine and a 10-year fracture probability by FRAX of greater than or equal to 3% for hip fracture or greater than or equal to 20% for major osteoporotic fracture based on the [place] adapted WHO algorithm. 4. Other Recommendations: All treatment decisions require clinical judgment and consideration of individual patient factors, including patient preferences, comorbidities, previous drug use, risk factors not captured in the FRAX model (e.g. frailty, falls, vitamin D deficiency, increased bone turnover, interval significant decline in bone density) and possible under or overestimation of fracture risk by FRAX. Additional medical evaluation for secondary cause of low bone mineral density may be appropriate. FUTURE SCAN RECOMMENDATION: People with diagnosed cases of osteoporosis or at high risk for fracture should have regular bone mineral density tests. For patients eligible for Medicare, routine testing is allowed once every 2 years. The testing frequency can be increased to one year for patients who have rapidly progressing disease, those who are receiving or discontinuing medical therapy to restore bone mass, or have additional risk factors.
== END 2022-09-21 08:45 | disposition home or self-care (01) ==
LOC: HO.MAMMO 08:44
PROVIDERS: PCP Internal Medicine; Visit Provider Internal Medicine
DX: Z13.820 Encounter for screening for osteoporosis (principal); Z78.0 Asymptomatic menopausal state
CPT/HCPCS: 77080

== ENCOUNTER 2022-11-20 13:57 | Outpatient (AMB) | payer OTHER, SELFPAY ==
--- NOTE | 2022-11-20 14:05 | A.OFFVIS_ITS ---
Intake Vital Signs 11/20/22 14:06 Height 5 ft 2 in Weight 232 lb 12.93 oz BMI 42.6 Pulse 74 Pulse Source Pulse Oximeter Pulse Oximetry (%) 98 Oxygen Delivery Method Room Air Intake Visit Reasons: Obstructive sleep apnea Allergies naproxen Allergy (Severe, Verified 11/20/22 14:07) muscle aches sertraline Allergy (Severe, Verified 11/20/22 14:07) muscle aches HPI HPI Comments History of Present Illness Details The patient is a 62-year-old woman known history of asthma in addition to a cardiac history including atrial fibrillation and hypertension. She has been having worsening daytime drowsiness. Also complaining of headaches. In also with her cardiac history she did undergo a sleep study at the laboratory. It demonstrated that she did have gaav-gk-zbutljyr obstructive sleep apnea. She also has significant desaturations down to 83%. She then underwent titration study recommended that she should start CPAP therapy. The CPAP therapy was affecting beneficial. Initially she started with a nasal mask but then switched over to a fullface mask that apparently work better. At this point we did go over the therapy for obstructive sleep apnea and with her cardiac history I did recommend she start CPAP therapy. She is agreeable to this and we will set her up with a local [employer] company. In the meantime she does complaint of nasal congestion also shortness of breath. She does have a history of asthma. She does have a rescue inhaler that she uses as needed. She has not had to use in the last week. Although she feels like she is getting more congested. 10/27/2019 The patient has a telephone visit. Overall the patient is doing well. However, she is struggling with her CPAP. Can not seem to get a good fitting and the mask with significant air leakage. She also becomes very anxious when she started using it and she has a hard time sleeping with it. We did talk about considering a sleep aid. She also has episodes of pain at nighttime that affect her sleep. Therefore she is agreeable to take gabapentin as a sleep aid to hopefully tolerated better the CPAP. We also talked about having her come in for a mask evaluation and teaching. She can do that with her DME company over can try to also do it here in the office. 02/19/2020 The patient has a telephone visit. She still having issues tolerating the CPAP. She has not been using the CPAP due to not tolerating it. Feels like she has too much pressure. Due to her not using it her DME is not providing her with any services. Therefore, I will make her an in-person appointment ROBIN to adjust her machine and to make sure she is aquinted with the CPAP equipment. She has been doing well from an asthma standpoint. Has not required any MATHEW. Her issue right now has to do with significant arthritis. She will follow up her primary care. 04/12/2020 the patient is a telephone visit today. Since we last spoke the patient states that she started developing worsening respiratory symptoms with wheezing and also nasal congestion. She start using her respiratory medications more regularly. She took zpvh-wgs-nhyivni medications. She did not require prednisone or antibiotics. Her symptoms are now better. She is still struggling with her CPAP. She does try to put the machine on but she feels like the machine is suffocating her. She was supposed to come in so we can adjust the machine however, due to the weather she was not able to come in to the visit. Therefore I did contact her DME company in order to give me axis remotely to her CPAP machine to be able to adjusted accordingly. 07/12/2020 the patient is here for pulmonary follow-up visit. The patient did bring her CPAP in. She still struggling with the CPAP. She feels that the pressure is too high in the mask Star sleeping a lot. Therefore we downloaded the CPAP and is currently set up on APAP 6-16. Patient does not seem to be tolerating the high pressures so therefore we switched to CPAP of 8 with a ramp of 5. And hopefully she can tolerate this pressure. She currently has a F 30 mask that is fitting well size small. In addition to that she does describe episodes of shortness of breath specially in the morning. Explained to her that may be the fact that she is not treating her obstructive sleep apnea adequately. I am hopeful that she starts using this lower pressure settings. We did also look at at the titration study she had and she actually did well also with the lower pressure. Therefore she cannot tolerate the 8 cm will go ahead and decrease it further. Patient has continued to use her respiratory therapy. She does have a short-acting beta agonist that she uses less than 2 times a week. Patient will monitor for any more recurrent episodes of shortness of breath. I am hopeful that the symptoms will improve when she starts using her CPAP. 05/29/2021 the patient is here for pulmonary follow-up visit. Since we last spoke the patient has developed a worsening cough for the last 3 days. Moderate severity. Denies any sick contacts. She is not expectorating. She feels some irritation to her throat. Has a raspiness to her voice. The patient was vaccinated for COVID-19 although she has not gotten her booster. She is going to get in the next few months. She is not due for the patient. In the meantime because the cough she has not been able to use her CPAP. Hopefully will could not improve her symptoms and she can go back to using her CPAP. Her CPAP therapy has been affecting beneficial for her. She typically does use it for more than 4 hours a night. She also has other complaints that she needs to discuss with primary care doctor including told discomfort she is wondering if she has gout and also knee discomfort. She will follow up with primary care doctor soon. 11/28/2021 the patient is here for a pulmonary follow-up visit. The patient overall has been doing relatively well. Although she is having increased daytime drowsiness. She start using the CPAP. She could not tolerated. She is also having issues with tachycardia and SVT. She will be followed up with a sales and support center agent soon. Explained to her that this may be from untreated sleep apnea. The patient would like to hold off on the CPAP for now. Patient is no longer getting supplies likely based on the fact that she has been using it. If she does want to go back to using it she will have to probably get another sleep study to get reoccur intubated with a [employer] company. Once she wants to start using it she can always call the office so we can reset the machine to a pressure that she can not tolerate better. From a respiratory status the patient is doing relatively well. She is using her rescue inhaler on a regular basis usually on a daily basis. Therefore, at this point the patient will be started on maintenance inhaler with hopes that she does not require her rescue inhaler as often. The patient is agreeable to this. 05/28/2022 the patient is here for a pulmonary follow-up visit. The patient has been doing well from a respiratory status. Weight did send her prescription for Breo. She does not use it all the time. Explained to her that she should definitely use it routinely. She also has a rescue inhaler that she can use as needed. The patient is breathing well and denies any significant shortness of breath. Her main issue is her knee discomfort keeping her from being able to move exercise regularly. In addition to this the patient has not been using the CPAP. She rather not use it. She is waking up rested. Her Manteca score is 7/24. She is going to continue to try positional therapy. Unfortunately though she has having hard time sleeping on her sides because she is having some left-sided discomfort in her flank. The patient was evaluated by her primary care doctor who ordered a renal ultrasound demonstrating either a cyst or a dilated pelvis of the kidney. I did give her the report and she needs to talk to her primary care doctor regarding the abnormal finding. It is a clear this was causing the discomfort but still should be looked that the since the patient continues to be symptomatic. 11/20/2022 the patient is here for a pulmonary follow-up visit. Overall she is doing well from a respiratory status. She is no longer using the Breo inhaler. She does use her rescue inhaler but typically less than 2 times a week. Does have dyspnea on exertion. Some component of deconditioning. in addition to this the patient has not been using CPAP. We did talk about the importance of positional therapy for sleep apnea. She does wake up rested. Her Manteca score is around 7/24. She continues on her cardiac medications. Otherwise patient is without any other complaints. Will have her return in 6 months with a follow-up chest x-ray at that time. If the patient has any worsening symptoms prior to the next visit she is to call the office for an earlier assessment. [facility] Medical History Asthma Chronic back pain Dyspnea GERD (gastroesophageal reflux disease) Gross hematuria Hypovitaminosis D Migraine Morbid obesity with BMI of 40.0-44.9, adult Obesity Onychomycosis JOHN on CPAP Paroxysmal atrial fibrillation Polyarthralgia Pure hypercholesterolemia Sinusitis Swelling of lower extremity Surgical History History of appendectomy History of section History of pterygium excision History of total abdominal hysterectomy and bilateral salpingo-oophorectomy Family History Father CVD (cardiovascular disease) Mother Hypertension Brother Colon cancer Sister Colon cancer Thyroid cancer Sister Lupus Maternal Aunt Breast cancer Family/Other FH: mental illness Social History Housing: Apartment Alcohol intake: never Patient Tobacco Use Status: Never used Tobacco e-Cigarette/Vaping Use: Never Used Second Hand Smoke Exposure: No service: No Current occupational status: disabled Cognitive needs: No Hearing needs: No Vision needs: Yes Review of Systems Const Denies daytime sleepiness and Denies weakness ENT Denies dizziness Card Denies chest pain, Denies chest pain with activity, Denies syncope, Denies rapid heart rate, Denies pedal edema, Denies edema, Denies leg edema, Denies lightheadedness, Denies palpitations, Denies dyspnea, Reports dyspnea on exe rtion and Denies orthopnea Resp Reports cough, Denies dyspnea, Reports dyspnea on exertion and Denies wheezing GI Denies hematochezia and Denies change in stool character Reports flank pain Musc Denies abnormal gait, Denies muscle weakness, Denies numbness, Denies radiating pain into limb and Denies tingling Neuro Denies abnormal gait, Denies dizziness, Denies syncope, Denies numbness, Denies tingling and Denies weakness Endo Denies palpitations Aller/Immun Denies wheezing Physical Exam Vital Signs: Last Vital Signs Pulse 74 11/20/22 14:06 Pulse Ox 98 11/20/22 14:06 Oxygen Delivery Method Room Air 11/20/22 14:06 BMI result Body Mass Index 42.6 Const General: alert Neck Neck: Yes normal visual inspection, Yes full ROM and Yes no lymphadenopathy Chest Chest palpation & inspection: normal inspection of the chest Resp Auscultation: diminished lung sounds Cardio Rate: regular rate Rhythm: regular rhythm Heart sounds: S1 normal heart sound present and S2 normal heart sound present GI Palpation (GI): Soft to palpation and nontender Auscultation: normal bowel sounds Skin General skin exam: rashes and/or lesions noted Extrem General: Yes edema Immunizations pneumoc 20-lis conj-dip cr(PF) 0.5 mL IM syringe Performing Provider: Farrukh Eng MD [place] [facility] [place] [facility] Administered by: Violetta Vanessa LPN on 11/20/22 14:28 Dose Route Admin Location Dispensed Lot Number Expiration Date [employer] 0.5 mL IM Left Deltoid 0.5 mL [id number] 01/09/24 0379-0411-62 [employer] VIS Given Date VIS Provided VIS Publication Date 11/20/22 Single Vaccine 22 Eligibility Eligibility Date Funding Source Not [facility] Eligible 11/20/22 Private Assessment & Plan Assessment & Plan (1) Dyspnea: Code(s): R06.00 - Dyspnea, unspecified Qualifiers: Dyspnea type: dyspnea on exertion Qualified Code(s): R06.09 - Other forms of dyspnea (2) JOHN on CPAP: Code(s): G47.33 - Obstructive sleep apnea (adult) (pediatric); Z99.89 - Dependence on other enabling machines and devices (3) Asthma: Code(s): J45.909 - Unspecified asthma, uncomplicated Qualifiers: Asthma complication type: uncomplicated Asthma persistence: persistent Asthma severity: moderate Qualified Code(s): J45.40 - Moderate persistent asthma, uncomplicated (4) GERD (gastroesophageal reflux disease): Code(s): K21.9 - Gastro-esophageal reflux disease without esophagitis Qualifiers: Esophagitis presence: esophagitis presence not specified Qualified Code(s): K21.9 - Gastro-esophageal reflux disease without esophagitis Plan MATHEW as needed stopped Breo not using APAP positional therapy compression stockings F/U 6 months Orders: Orders XR chest 2V Today J45.909 - Unspecified asthma, uncomplicated Pneumococcal 20 Immunization Today Z23 - Encounter for immunization Medications: Refilled albuterol sulfate 90 mcg/actuation 2 inhalations inhalation Q6H PRN 8.5 grams 11RF shortness of breath or wheezing compress.stocking,knee,reg,med 15-20 cm 2 ea 0RF M79.89 - Other specified soft tissue disorders Discontinued fluticasone furoate-vilanterol 100-25 mcg/dose (Breo Ellipta) Discontinued Reason: Doctor's Order 1 inh inhalation DAILY 30 days 60 ea 11RF Quality Reporting (2019) Adult ([facility] 138/2) Smoking risk assessment performed?: Yes Patient Tobacco Use Status: Never used Tobacco Coding Level of Care Code Est Pt Level 4 (89998) Diagnoses Dyspnea on exertion R06.09 Dyspnea type: dyspnea on exertion JOHN on CPAP G47.33; Z99.89 Moderate persistent asthma without complication J45.40 Asthma complication type: uncomplicated Asthma persistence: persistent Asthma severity: moderate Gastroesophageal reflux disease, unspecified whether esophagitis present K21.9 Esophagitis presence: esophagitis presence not specified Time Spent (min) 17
[2022-11-20 14:06] VITALS: PULSE 74; O2SAT 98; BMI 42.6
== END 2022-11-20 14:46 | disposition home or self-care (01) ==
PROVIDERS: PCP Internal Medicine; Visit Provider Hospitalist
DX: R06.09 Other forms of dyspnea (principal); G47.33 Obstructive sleep apnea (adult) (pediatric); Z99.89 Dependence on other enabling machines and devices; J45.40 Moderate persistent asthma, uncomplicated; K21.9 Gastro-esophageal reflux disease without esophagitis
CPT/HCPCS: 99214

== ENCOUNTER → 2022-11-20 13:57 | Outpatient (BNVA) | payer OTHER, SELFPAY | PROVIDERS: PCP Internal Medicine; Visit Provider Hospitalist | DX: J45.40 Moderate persistent asthma, uncomplicated (principal); R06.09 Other forms of dyspnea; G47.33 Obstructive sleep apnea (adult) (pediatric); R40.0 Somnolence; I48.0 Paroxysmal atrial fibrillation; I10 Essential (primary) hypertension; K21.9 Gastro-esophageal reflux disease without esophagitis; Z23 Encounter for immunization; Z99.89 Dependence on other enabling machines and devices | CPT/HCPCS: 90471; 90677; 99212 ==

== ENCOUNTER 2022-11-21 13:02 | Outpatient (AMB) | payer OTHER, SELFPAY ==
[2022-11-21 13:06] VITALS: BP 114/72; PULSE 76; BMI 43.3
--- NOTE | 2022-11-21 13:06 | A.OFFVIS_ITS ---
Intake Vital Signs 11/21/22 13:06 Height 5 ft 2 in Weight 236 lb 12.423 oz BMI 43.3 BP 114/72 Blood Pressure Location Lt brachial Position Sitting Pulse 76 Pulse Source Pulse Oximeter Intake Visit Reasons: 6 month follow up Intake Note: 6 month f/up Electroencephalographic Technician Required: Yes Electroencephalographic Technician Name: amish jones [id number] Allergies naproxen Allergy (Severe, Verified 11/21/22 13:11) muscle aches sertraline Allergy (Severe, Verified 11/21/22 13:11) muscle aches Medication List - Last Reconciled 11/21/22 by Nils Montesinos MD albuterol sulfate 90 mcg/actuation 2 inhalations inhalation Q6H PRN aspirin 81 mg PO DAILY atorvastatin 40 mg PO BEDTIME 90 days carvedilol 6.25 mg PO BID cholecalciferol (vitamin D3) (Vitamin D3) 25 mcg PO DAILY compress.stocking,knee,reg,med 15-20 cm flu vac [id number] 36mos up(PF) mL IM furosemide 20 mg PO BID gabapentin 300 mg PO DAILY montelukast 10 mg PO DAILY nebulizers As directed pantoprazole 40 mg PO DAILY Shower Chair As directed triamcinolone acetonide 0.5% 1 appl topical BID PRN 30 days HPI HPI Comments History of Present Illness Details Pleasant 62-year-old female who is here for follow-up. She has background history of hyperlipidemia, obstructive sleep apnea and paroxysmal atrial fibrillation. She has not been on anticoagulation because her chads Vasc score was 1. She returns for follow-up today. She is saying she has palpitations lasting for few seconds 3 to 4 times a week. She is denying chest pain or shortness of breath. Taking medications otherwise regularly. She was referred for Holter monitor in 2020 but did not show any significant arrhythmia. She returns for follow-up and again complaining of palpitations. She had a 7 days Holter monitor in January 2022. This showed occasional supraventricular and ventricular ectopy. She is saying she feels palpitations with a heart suddenly races for few seconds and then these symptoms goal weight. No chest pain or shortness of breath. On follow-up she is doing well. She is denying chest pain or shortness of breath. Her only complaint is skin dryness. She is taking furosemide for peripheral edema. She is also on statins which can cause skin dryness at times. 11/21/2022: She returns for follow-up. O n last visit she is complaining of dry skin and she was advised to cut back on diuretics to see if that helps her. She said she cut back the Lasix but started having edema again and went back to 20 mg b.i.d. Lasix. Her blood pressure appears to be normal. No chest discomfort or significant shortness of breath. No other symptoms on follow-up. [facility] Medical History Asthma Chronic back pain Dyspnea GERD (gastroesophageal reflux disease) Gross hematuria Hypovitaminosis D Migraine Morbid obesity with BMI of 40.0-44.9, adult Obesity Onychomycosis JOHN on CPAP Paroxysmal atrial fibrillation Polyarthralgia Pure hypercholesterolemia Sinusitis Swelling of lower extremity Surgical History History of pterygium excision History of total abdominal hysterectomy and bilateral salpingo-oophorectomy History of section History of appendectomy Family History Father CVD (cardiovascular disease) Mother Hypertension Brother Colon cancer Sister Colon cancer Thyroid cancer Sister Lupus Maternal Aunt Breast cancer Family/Other FH: mental illness Social History Housing: Apartment Alcohol intake: never Patient Tobacco Use Status: Never used Tobacco e-Cigarette/Vaping Use: Never Used Second Hand Smoke Exposure: No service: No Current occupational status: disabled Cognitive needs: No Hearing needs: No Vision needs: Yes Review of Systems ENT Reports dizziness Card Denies chest pain, Denies chest pain at rest, Denies chest pain with activity, Denies rapid heart rate, Denies pedal edema, Denies edema, Denies leg edema, Den ies lightheadedness, Denies palpitations, Denies dyspnea, Denies dyspnea on exertion and Denies orthopnea Resp Denies cough, Denies dyspnea and Denies dyspnea on exertion GI Denies hematochezia and Denies change in stool character Musc Denies abnormal gait, Reports limited range of motion, Reports muscle cramps, Denies muscle weakness, Denies numbness, Denies radiating pain into limb, Denies stiffness and Denies tingling Neuro Denies abnormal gait, Reports dizziness, Denies numbness and Denies tingling Endo Denies palpitations Physical Exam Vital Signs: Last Vital Signs Pulse 76 11/21/22 13:06 BP 114/72 11/21/22 13:06 BMI result Body Mass Index 43.3 GENERAL APPEARANCE: in no acute distress, pleasant. NECK: no carotid bruit, no jugular venous distention. SKIN: no suspicious lesions, warm and dry. HEART: no murmurs, regular rate and rhythm. LUNGS: clear to auscultation bilaterally. ABDOMEN: soft, nontender. EXTREMITIES: no edema. PERIPHERAL PULSES: equal. NEUROLOGIC: No gross deficits, AAO X 3 Assessment & Plan Assessment & Plan (1) Paroxysmal atrial fibrillation: Code(s): I48.0 - Paroxysmal atrial fibrillation Plan [age] year female who is here for follow-up. She has background of paroxysmal atrial fibrillation. She is currently not anticoagulated. She has a chads Vasc score of 1 currently. Not clinically in heart failure. Peripheral edema is probably linked with gabapentin use. Continue Lasix as before. Overall clinically stable. Will see us back in 6 months. Thank you for allowing me to participate in the care of your patient. Please feel free to contact me if you have any questions. Quality Reporting (2019) Adult ([facility] ) Smoking risk assessment performed?: Yes Patient Tobacco Use Status: Never used Tobacco Coding Level of Care Code Est Pt Level 3 (16511) Diagnoses Paroxysmal atrial fibrillation I48.0
== END 2022-11-21 13:24 | disposition home or self-care (01) ==
PROVIDERS: PCP Internal Medicine; Referring Provider Internal Medicine; Visit Provider Internal Medicine Cardiovascular Disease
DX: I48.0 Paroxysmal atrial fibrillation (principal)
CPT/HCPCS: 99213

== ENCOUNTER → 2022-11-21 13:02 | Outpatient (BNVA) | payer OTHER, SELFPAY | PROVIDERS: PCP Internal Medicine; Referring Provider Internal Medicine; Visit Provider Internal Medicine Cardiovascular Disease | DX: I48.0 Paroxysmal atrial fibrillation (principal); R00.2 Palpitations; I49.3 Ventricular premature depolarization | CPT/HCPCS: 99212 ==

== ENCOUNTER 2023-02-12 10:59 | Outpatient (AMB) | payer MEDICARE, MEDICAID, SELFPAY ==
--- NOTE | 2023-02-12 11:04 | MHC.OFFVIS ---
Intake Vital Signs 02/12/23 11:10 Height 5 ft 2 in Weight 235 lb 14.314 oz BMI 43.1 BP 126/60 Blood Pressure Location Lt brachial Position Sitting Pulse 79 Intake Visit Reasons: Colonoscopy Screening Intake Note: Sarah presents in the office as a Colonoscopy Screening. CC: She states that yesterday she had pains in her stomach and diarrhea. She states that it does not happen often. Allergies naproxen Allergy (Severe, Verified 02/12/23 11:10) muscle aches sertraline Allergy (Severe, Verified 02/12/23 11:10) muscle aches amoxicillin [From Augmentin] Allergy (Mild, Verified 02/12/23 11:12) Unknown clavulanic acid [From Augmentin] Allergy (Mild, Verified 02/12/23 11:12) Unknown HPI Colonoscopy Screening HPI Details 63 year old? female here today for pre colonoscopy screening.? Patient was sent to us by her PCP.? Patient had colonoscopy in 2014, showed no polyps. Patient has a family history of colorectal cancer, patient's brother and sister both had colorectal cancer.? ? Denies history of difficulty with sedation or anesthesia in the past.? History of sleep apnea using CPAP every night.? Denies any history of renal, pulmonary, or hepatic disease.??History of PAF, not on any anticoagulation medication except for low dose aspirin. Patient has been followed by Dr. Montesinos and has an appointment in May. Will ask for risk stratification before going for the procedure. No history of infectious? diseases like hepatitis A, B, C, HIV or tuberculosis.? PFSH Medical History Dyspnea Swelling of lower extremity Gross hematuria Onychomycosis Polyarthralgia Chronic back pain Migraine Hypovitaminosis D Paroxysmal atrial fibrillation Morbid obesity with BMI of 40.0-44.9, adult Sinusitis GERD (gastroesophageal reflux disease) Pure hypercholesterolemia Obesity JOHN on CPAP Asthma Surgical History Hx of colonoscopy History of pterygium excision History of total abdominal hysterectomy and bilateral salpingo-oophorectomy History of section History of appendectomy Family History Father CVD (cardiovascular disease) Mother Hypertension Brother Colon cancer Sister Colon cancer Thyroid cancer Sister Lupus Maternal Aunt Breast cancer Family/Other FH: mental illness Social History Housing: Apartment Alcohol intake: never Patient Tobacco Use Status: Never used Tobacco e-Cigarette/Vaping Use: Never Used Second Hand Smoke Exposure: No service: No Current occupational status: disabled Cognitive needs: No Hearing needs: No Vision needs: Yes Review of Systems Const Denies weight gain and Denies weight loss ENT Reports no additional complaints, Denies dysphagia and Denies odynophagia Card Reports no additional complaints Resp Reports no additional complaints GI Denies abdominal pain, Denies belching, Denies melena, Denies bloating, Denies change in bowel habits, Denies dysphagia, Denies excessive flatus, Denies dyspepsia, Denies heartburn, Denies diarrhea, Denies loose stools, Denies nausea, Denies odynophagia and Denies vomiting Reports no additional complaints Musc Reports no additional complaints Neuro Reports no additional complaints Psych Reports no additional complaints Endo Reports no additional complaints Physical Exam Vital Signs: Last Vital Signs Pulse 79 02/12/23 11:10 BP 126/60 02/12/23 11:10 BMI result Body Mass Index 43.1 Const General: healthy appearing, no acute distress and well developed Nutritional Appearance: obese Orientation/consciousness: patient oriented x3 HEENT Head: Yes normal to inspection, Yes normocephalic and Yes atraumatic Face and sinus: Yes normal facial exam Mouth: Normal oral and palatal mucosa present Throat: Yes posterior oropharynx normal, Yes tonsils normal and Yes uvula midline Eyes General: appearance normal, both eyes and all related structures Neck Neck: Yes normal visual inspection, Yes full ROM and Yes trachea midline Thyroid: Thyroid normal Resp Effort & Inspection: normal respiratory effort, able to speak in complete sentences, no tracheal deviation and symmetric chest movement Auscultation: clear to auscultation bilaterally Cardio Rate: regular rate GI Inspection: Yes normal to inspection, No distended and Yes obesity Palpation (GI): Soft to palpation, not firm, nontender and No hepatosplenomegaly present Auscultation: normal bowel sounds General: Yes no CVA tenderness Back/Spine/Pelvis Back: no CVA tenderness Skin General skin exam: elasticity normal, turgor normal and dry skin Neuro General: patient oriented x3 Psych Appearance: grossly normal Mental Status: mental status grossly normal Affect: normal affect Assessment & Plan Assessment & Plan (1) GERD (gastroesophageal reflux disease): Code(s): K21.9 - Gastro-esophageal reflux disease without esophagitis Qualifiers: Esophagitis presence: esophagitis presence not specified Qualified Code(s): K21.9 - Gastro-esophageal reflux disease without esophagitis (2) Screen for colon cancer: Code(s): Z12.11 - Encounter for screening for malignant neoplasm of colon Plan Patient denies any GI, cardiac or respiratory symptoms.? However patient is on pantoprazole for reflux and reports that it has been working well. Denies any issues with anesthesia in the past.? History of sleep apnea using CPAP at night.? No history infectious diseases in the past or present.? Patient is on low-dose aspirin. History of PAF, not on any other anticoagulation therapy. Patient has an appointment with her home care scheduler in May, will ask for risk stratification then and book her procedure for June.? Patient denies any cardiac or respiratory symptoms. Patient denies melena, hematochezia, unintentional weight loss or ribbon like stools.? Discussed at length the pre-procedure,? prep, diet & medications as well as what to expect prior, during and after the procedure.?? Stressed the importance of good bowel prep. ?Recommended the use of Vaseline or Calmoseptine OTC & baby wipes with bowel movements to promote comfort.? ?Patient verbalizes understanding and agrees to plan of care.? She was given the opportunity to ask questions and all questions answered.? We will see her after the procedure.? Medications: New bisacodyl (Dulcolax (bisacodyl)) take 4 tabs at noon the day before your colonoscopy 20 mg (4 x 5 mg) PO ONCE 1 day 4 tabs 0RF Z12.11 - Encounter for screening for malignant neoplasm of colon polyethylene glycol 3350 (Miralax) As directed by gastroenterology [facility] at [facility] 238 grams PO ONCE 238 grams 0RF Z12.11 - Encounter for screening for malignant neoplasm of colon Quality Reporting (2019) Adult ([facility] 138/2/22/69) Smoking risk assessment performed?: Yes Patient Tobacco Use Status: Never used Tobacco Coding Level of Care Code New Pt Level 3 (15493) Diagnoses Gastroesophageal reflux disease, unspecified whether esophagitis present K21.9 Esophagitis presence: esophagitis presence not specified Screen for colon cancer Z12.11 Time Spent (min) 40 Comment 30 minutes spent with patient and additional 10 minutes spent reviewing her records
[2023-02-12 11:10] VITALS: BP 126/60; PULSE 79; BMI 43.1
== END 2023-02-12 12:06 | disposition home or self-care (01) ==
PROVIDERS: PCP Internal Medicine; Visit Provider Nurse Practitioner Family
DX: K21.9 Gastro-esophageal reflux disease without esophagitis (principal); Z12.11 Encounter for screening for malignant neoplasm of colon
CPT/HCPCS: 99203

== ENCOUNTER → 2023-02-12 10:59 | Outpatient (BNVA) | payer MEDICARE, MEDICAID, SELFPAY | PROVIDERS: PCP Internal Medicine; Visit Provider Nurse Practitioner Family | DX: Z12.11 Encounter for screening for malignant neoplasm of colon (principal); K21.9 Gastro-esophageal reflux disease without esophagitis; E66.9 Obesity, unspecified; Z68.41 Body mass index [BMI] 40.0-44.9, adult; Z80.0 Family history of malignant neoplasm of digestive organs | CPT/HCPCS: 99202 ==

== ENCOUNTER 2023-02-21 13:25 | Outpatient (AMB) | payer MEDICARE, MEDICAID, SELFPAY ==
[2023-02-21 13:34] VITALS: BP 122/70; BMI 43.3
--- NOTE | 2023-02-21 13:34 | A.OFFPC_ITS ---
Vital Signs 02/21/23 13:34 Height 5 ft 2 in Weight 237 lb BMI 43.3 BP 122/70 Blood Pressure Location Lt brachial Position Sitting Intake Visit Reasons: asthma Intake Note: Patient here for a follow up Asthma Color Making Supervisor Required: No Accompanied by: Self / Same As Patient Allergies naproxen Allergy (Severe, Verified 02/21/23 13:53) muscle aches sertraline Allergy (Severe, Verified 02/21/23 13:53) muscle aches amoxicillin [From Augmentin] Allergy (Mild, Verified 02/21/23 13:53) Unknown clavulanic acid [From Augmentin] Allergy (Mild, Verified 02/21/23 13:53) Unknown Medication List - Last Reconciled 02/21/23 by Simran Thompson MD albuterol sulfate 90 mcg/actuation 2 inhalations inhalation Q6H PRN aspirin 81 mg PO DAILY atorvastatin 40 mg PO BEDTIME 90 days bisacodyl (Dulcolax (bisacodyl)) 20 mg (4 x 5 mg) PO ONCE 1 day calcium carbonate 1,000 mg PO DAILY carvedilol 6.25 mg PO BID 90 days cholecalciferol (vitamin D3) (Vitamin D3) 25 mcg PO DAILY compress.stocking,knee,reg,med 15-20 cm flu vac [id number] 36mos up(PF) mL IM furosemide 20 mg PO BID gabapentin 300 mg PO BEDTIME montelukast 10 mg PO DAILY nebulizers As directed pantoprazole 40 mg PO DAILY polyethylene glycol 3350 (Miralax) 238 grams PO ONCE Shower Chair As directed triamcinolone acetonide 0.5% 1 appl topical BID PRN 30 days Tobacco use date assessed: 03/27/22 Fall risk assessment: No Falls in past year Last assessed Fall Risk: 02/21/23 Dental Screening Dental Screen Date: 02/21/23 Did you have a dental visit in the last 12 months?: No Did you have a dental problem in the last 6 months where you did not have access to dental care?: No Was dental information given to patient?: Patient has dentist HPI HPI Comments History of Present Illness Details This is a 63-year-old female with GERD, pure hypercholesterolemia and morbid obesity that comes today complaining of right leg pain that started about a month ago. She walks with a cane for gait stability. GERD stable with PPIs as needed. Cholesterol well controlled with statins. She is morbidly obese with a BMI of 43.3 and declines weight loss surgery. She has Mari's positive and will have an ultrasound of the leg today to rule out DVT. No chest pain or shortness of breath. [facility] Medical History (Updated 02/21/23 @ 13:59 by Simran Thompson MD) Dyspnea Swelling of lower extremity Gross hematuria Onychomycosis Polyarthralgia Chronic back pain Migraine Hypovitaminosis D Paroxysmal atrial fibrillation Morbid obesity with BMI of 40.0-44.9, adult Sinusitis GERD (gastroesophageal reflux disease) Pure hypercholesterolemia Obesity JOHN on CPAP Asthma Surgical History Hx of colonoscopy History of pterygium excision History of total abdominal hysterectomy and bilateral salpingo-oophorectomy History of section History of appendectomy Family History Father CVD (cardiovascular disease) Mother Hypertension Brother Colon cancer Sister Colon cancer Thyroid cancer Sister Lupus Maternal Aunt Breast cancer Family/Other FH: mental illness Social History Housing: Apartment Alcohol intake: never Patient Tobacco Use Status: Never used Tobacco e-Cigarette/Vaping Use: Never Used Second Hand Smoke Exposure: No service: No Current occupational status: disabled Cognitive needs: No Hearing needs: No Vision needs: Yes Questionnaire Thrive Questionnaire Date Thrive assessed: 03/27/22 LI-7 AMB Questionnaire LI-7 Date LI - 7 assessed: 03/27/22 Source: Developed by Drs. Yann Frausto, Kelly Johnson, Ellis Berumen and colleagues, with an educational lisette from [employer]. Review of Systems Const All systems reviewed & are unremarkable except as noted in HPI and below Eyes Reports no additional complaints, Denies change in vision and Denies other visual disturbances Card Denies chest pain at rest, Denies chest pain with activity, Denies edema, Denies irregular heart rhythm, Denies claudication, Denies dyspnea, Denies dyspnea on exertion, Denies orthopnea, Denies paroxysmal nocturnal dyspnea and Denies slow heart rate Resp Denies cough, Denies dyspnea and Denies dyspnea on exertion GI Denies abdominal pain, Denies change in bowel habits, Denies excessive flatus, Denies nausea and Denies vomiting Denies urinary incontinence, Denies urinary hesitancy and Denies urinary urgency Musc Denies abnormal gait, Denies atrophy, Denies deformity and Denies limited range of motion Skin/Breast Denies bleeding lesions, Denies changing lesions and Denies rash Neuro Denies abnormal gait and Denies lack of coordination Physical exam (Primary Care) Vital Signs: Last Vital Signs BP 122/70 02/21/23 13:34 BMI result Body Mass Index 43.3 Tobacco/Smoking Status: Tobacco use Status Tobacco use date assessed 03/27/22 02/21/23 13:40 Patient Tobacco Use Status Never used Tobacco 02/21/23 13:40 e-Cigarette/Vaping Use Never Used 02/21/23 13:40 Thrive Assessment: Date of Thrive Assessment Date Thrive assessed 03/27/22 02/21/23 13:40 Const Limitations: ambulation with cane Eyes General: appearance normal, both eyes and all related structures Eyelids: Yes eyelids normal Conjunctivae: conjunctivae normal Neck Neck: Yes normal visual inspection and Yes supple Resp Effort & Inspection: normal respiratory effort Auscultation: clear to auscultation bilaterally Cardio Jugular venous distension: no JVD Rate: regular rate Rhythm: regular rhythm Heart sounds: S1 normal heart sound present and S2 normal heart sound present Extrem Other: Mari's positive in right leg General: Yes full ROM Office Procedures Flu Questionnaire Does the patient have a severe egg allergy?: No Immunizations flu vacc [id number] 6mos up(PF) 60 mcg(15 mcgx4)/0.5 mL IM syringe Performing Provider: Simran Thompson MD [facility] [place] [facility] Documented (not given) by: WILBER Mcdaniel on 02/21/23 14:00 Reason Not Given: Patient Refused Assessment and Plan Assessment & Plan (1) Pure hypercholesterolemia: Code(s): E78.00 - Pure hypercholesterolemia, unspecified Plan: Continue statins. (2) GERD (gastroesophageal reflux disease): Code(s): K21.9 - Gastro-esophageal reflux disease without esophagitis Qualifiers: Esophagitis presence: esophagitis presence not specified Qualified Code(s): K21.9 - Gastro-esophageal reflux disease without esophagitis Plan: Continue PPIs as needed. (3) Morbid obesity with BMI of 40.0-44.9, adult: Code(s): E66.01 - Morbid (severe) obesity due to excess calories; Z68.41 - Body mass index [BMI] 40.0-44.9, adult Plan: Start diet and exercise. BMI goal is less than 30. (4) Right leg pain: Code(s): M79.604 - Pain in right leg Plan: Ultrasound of the leg ordered Orders: Orders US venous duplex LE RT Today M79.604 - Pain in right leg Influenza [id number] Immunization Today Z23 - Encounter for immunization Coding Level of Care Code Est Pt Level 4 (03949) Diagnoses Pure hypercholesterolemia E78.00 Gastroesophageal reflux disease, unspecified whether esophagitis present K21.9 Esophagitis presence: esophagitis presence not specified Morbid obesity with BMI of 40.0-44.9, adult E66.01; Z68.41 Right leg pain M79.604 Time Spent (min) 22
== END 2023-02-21 13:59 | disposition home or self-care (01) ==
PROVIDERS: PCP Internal Medicine; Visit Provider Internal Medicine
DX: E78.00 Pure hypercholesterolemia, unspecified (principal); E66.01 Morbid (severe) obesity due to excess calories; Z68.41 Body mass index [BMI] 40.0-44.9, adult; K21.9 Gastro-esophageal reflux disease without esophagitis; M79.604 Pain in right leg
CPT/HCPCS: 99214

== ENCOUNTER 2023-02-21 14:26 | Outpatient (REF) | payer MEDICARE, MEDICAID, SELFPAY ==
--- NOTE | ~2023-02-21 | US_ITS ---
EXAMINATION: US VENOUS ULTRASOUND WITH DOPPLER LOWER EXTREMITY, RIGHT CLINICAL INFORMATION: Pain in right leg COMPARISON: Venous ultrasound of the left lower extremity 10/27/2008-negative TECHNIQUE: Ultrasound of the deep veins is performed from the hip to the calf with compression sonography and color and pulse Doppler assessment. Spectral analysis with color-flow imaging is performed. Technically limited study due to patient body habitus. FINDINGS: There is normal venous compression and respiratory variation. The visualized common femoral vein, superficial femoral vein, profunda femoral vein and popliteal vein shows no evidence of deep venous thrombosis. There are limited views of the posterior tibial and peroneal veins. The contralateral common femoral vein demonstrates normal respiratory variation. US/US venous duplex LE RT IMPRESSION: No DVT demonstrated in the right lower extremity.
== END 2023-02-21 14:27 | disposition home or self-care (01) ==
LOC: HO.US 14:26
PROVIDERS: Visit Provider Internal Medicine
DX: M79.604 Pain in right leg (principal)
CPT/HCPCS: 93971

== ENCOUNTER 2023-03-05 10:34 | Outpatient (REF) | payer MEDICARE, MEDICAID, SELFPAY | END 2023-03-05 10:35 | disposition home or self-care (01) | LOC: HO.XRAY 10:34 | PROVIDERS: PCP Internal Medicine; Visit Provider Urology | DX: N20.0 Calculus of kidney (principal) | CPT/HCPCS: 74018 ==

== ENCOUNTER 2023-03-07 12:39 | Outpatient (AMB) | payer MEDICARE, MEDICAID, SELFPAY ==
--- NOTE | 2023-03-07 13:01 | A.OFFVIS_ITS ---
Intake Intake Visit Reasons: 6m/KUB Intake Note: Patient presents today for a 6mo follow-up with KUB results. Meds- Furosemide Allergies to Antibiotic- Amoxicillin Blood Thinner- Aspirin Agriculture Engineer Required: Yes Agriculture Engineer Language: Gaming Department Head Name: WILBER Hardy, CMJose Span Accompanied by: Self / Same As Patient Allergies naproxen Allergy (Severe, Verified 03/07/23 13:03) muscle aches sertraline Allergy (Severe, Verified 03/07/23 13:03) muscle aches amoxicillin [From Augmentin] Allergy (Mild, Verified 03/07/23 13:03) Unknown clavulanic acid [From Augmentin] Allergy (Mild, Verified 03/07/23 13:03) Unknown HPI HPI Comments History of Present Illness Details Sarah is a 62-year-old female who presents to the office for a 6month follow-up with KUB results. LV--09/06/22-- The patient is English speaking female. Certified language interpreter was present during the visit. She has been evaluated for persistent microscopic hematuria. w/u notable for left kidney stone. She was seen on 07/20/22 for office cytoscopy. Cystoscopy findings-- no suspicious bladder lesions visualized. She had a renal US--10/26/21--which reported cyst versus hydronephrosis. 09/03/22--CT urogram 4 x 2 mm nonobstruct ing left lower pole renal calculus. The patient states drinking adequate amount of water upto 60 ounces in a day. 03/05/23-- KUB - film reviewed, official scrap worker pending. Plan: Will continue monitor for renal stone. FU in 12 months, renal us prior [facility] Medical History Dyspnea Swelling of lower extremity Gross hematuria Onychomycosis Polyarthralgia Chronic back pain Migraine Hypovitaminosis D Paroxysmal atrial fibrillation Morbid obesity with BMI of 40.0-44.9, adult Sinusitis GERD (gastroesophageal reflux disease) Pure hypercholesterolemia Obesity JOHN on CPAP Asthma Surgical History Hx of colonoscopy History of pterygium excision History of total abdominal hysterectomy and bilateral salpingo-oophorectomy History of section History of appendectomy Family History Father CVD (cardiovascular disease) Mother Hypertension Brother Colon cancer Sister Colon cancer Thyroid cancer Sister Lupus Maternal Aunt Breast cancer Family/Other FH: mental illness Social History Housing: Apartment Alcohol intake: never Patient Tobacco Use Status: Never used Tobacco e-Cigarette/Vaping Use: Never Used Second Hand Smoke Exposure: No service: No Current occupational status: disabled Cognitive needs: No Hearing needs: No Vision needs: Yes Review of Systems Const All systems reviewed & are unremarkable except as noted in HPI and below Reports no additional complaints Eyes Reports no additional complaints ENT Reports no additional complaints Card Denies dyspnea Resp Denies cough and Denies dyspnea GI Reports no additional complaints Reports no additional complaints Musc Reports no additional complaints Skin/Breast Denies rash and Denies unusual bruising Neuro Reports no additional complaints Psych Reports no additional complaints Endo Reports no additional complaints Bradley/Lymph Reports no additional complaints Aller/Immun Reports no additional complaints Results Reviewed Results Reviewed: Date of Service: 09/03/22 EXAMINATION: CT UROGRAM WITHOUT AND WITH CONTRAST CLINICAL INFORMATION: Hematuria COMPARISON: None available. TECHNIQUE: Noncontrast CT of the abdomen and pelvis is performed followed by split bolus contrast-enhanced images using 85 mL Omnipaque 350 contrast.? Postcontrast imaging is performed during the combined nephrogram and excretion phase. Sagittal and coronal reformatted images were obtained on the technologist's workstation for both the precontrast and postcontrast phases. This CT examination was performed using dose optimization techniques as appropriate, variously including the following: *Automated exposure control *Adjustment of mA and/or kV according to patient size (this includes techniques or standardized protocols for targeted exams where dose is matched to indication/reason for exam; i.e. extremities or head) *Use of iterative reconstruction technique DLP: 1039 mGy-cm FINDINGS: LUNG BASES: The visualized lung bases are unremarkable. LIVER, GALLBLADDER, AND BILIARY TREE: The liver is normal in size, shape, and attenuation. No focal hepatic lesion or biliary ductal dilatation is present. The gallbladder is unremarkable with no evidence of radiopaque gallstones, gallbladder wall thickening, or obvious pericholecystic inflammatory changes. PANCREAS: Unremarkable. SPLEEN: Unremarkable. ADRENAL GLANDS: Unremarkable. KIDNEYS AND URETERS: The kidneys are normal in size, shape, and attenuation. The left kidney measures 12.0 cm in length with the right kidney measuring 10.8 cm. There is a 4 x 2 mm nonobstructing left lower pole renal calculus that measures about 500 Hounsfield units and is 14 cm from the posterior axillary line. No hydronephrosis, hydroureter, or calculi seen. No perinephric stranding. There is some minimal prominence of the left collecting system caused by compression of the renal pelvis by a benign Bosniak class I 3.0 cm renal cyst near the renal pelvis. This has been seen on prior imaging studies and needs no additional imaging or follow-up. No solid renal masses are seen. A few other smaller cysts are present including an approximately 1 cm cyst in the right mid kidney medially (9:159) which also needs no additional imaging or follow-up. No solid renal masses are seen. Collecting systems appear normal without filling defects or mucosal abnormalities. The ureters are nondilated. BLADDER: Unremarkable. GASTROINTESTINAL TRACT: Moderate-sized hiatal hernia is present. The small and large bowel are unremarkable aside from sigmoid diverticulosis without diverticulitis. The appendix is not seen but there is no evidence of appendicitis. ABDOMINAL WALL: No significant hernia is appreciated. LYMPH NODES: Normal. VASCULAR: Unremarkable. PELVIC VISCERA: The uterus is not seen. An abnormal adnexal mass or free intraperitoneal fluid is not present. OSSEUS STRUCTURES: Degenerative changes are seen in the spine most marked at L2-L3. IMPRESSION: 1. A cause for the patient's hematuria has not been found aside from the presence of a 4 x 2 mm nonobstructing left lower pole renal calculus. 2. Incidental note made of benign Bosniak class I renal cysts which need no additional imaging or follow-up, sigmoid diverticulosis and degenerative changes in the spine. Assessment & Plan Assessment & Plan (1) Microscopic hematuria: Code(s): R31.29 - Other microscopic hematuria (2) Left renal stone: Code(s): N20.0 - Calculus of kidney Plan Will continue monitor for renal stone. FU in 12 months, renal us prior Orders: Orders US renal BI 10 Months R31.29 - Other microscopic hematuria Patient Instructions: The patient had an opportunity to ask questions regarding treatment plan. All questions were answered. Imaging, Laboratory studies and physical exam results were discussed and reviewed in detail. No major barriers to understanding were identified. The patient expressed understanding and agreement with the above treatment plan. The patient is aware they should contact our office by phone for worsening of their current condition or the appearance of new symptoms. Compliance is encouraged with any medications and followup testing that is ordered. It is a privilege to be allowed the opportunity to participate in the urologic care of your patient. If you have any questions or concerns regarding treatment for the above conditions please do not hesitate to contact me. The office telephone contact is [phone]. This note is constructed in part using voice recognition software. While every effort has been made to ensure accuracy scrap worker errors may have been included. Yours sincerely, Stephany Cardenas MD Quality Reporting (2019) Adult ([facility] 138/05/02/68) Smoking risk assessment performed?: Yes Patient Tobacco Use Status: Never used Tobacco Coding Level of Care Code Est Pt Level 3 (22217) Diagnoses Microscopic hematuria R31.29 Left renal stone N20.0
== END 2023-03-07 13:31 | disposition home or self-care (01) ==
PROVIDERS: PCP Internal Medicine; Visit Provider Urology
DX: R31.29 Other microscopic hematuria (principal); N20.0 Calculus of kidney
CPT/HCPCS: 99213

== ENCOUNTER → 2023-03-07 12:39 | Outpatient (BNVA) | payer OTHER, SELFPAY | PROVIDERS: PCP Internal Medicine; Visit Provider Urology | DX: R31.29 Other microscopic hematuria (principal); N20.0 Calculus of kidney | CPT/HCPCS: 99212 ==

== ENCOUNTER 2023-03-30 09:37 | Outpatient (AMB) | payer OTHER, SELFPAY ==
--- NOTE | 2023-03-30 11:41 | MHC.OFFWIV ---
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: Yes Assembly Inspector Helper Language: Emir[place] Allergies naproxen Allergy (Severe, Verified 03/30/23 12:25) muscle aches sertraline Allergy (Severe, Verified 03/30/23 12:25) muscle aches amoxicillin [From Augmentin] Allergy (Mild, Verified 03/30/23 12:25) Unknown clavulanic acid [From Augmentin] Allergy (Mild, Verified 03/30/23 12:25) Unknown Medication List - Last Reconciled 03/30/23 by Lisa Almodovar CNP albuterol sulfate 90 mcg/actuation 2 inhalations inhalation Q6H PRN aspirin 81 mg PO DAILY atorvastatin 40 mg PO BEDTIME 90 days bisacodyl (Dulcolax (bisacodyl)) 20 mg (4 x 5 mg) PO ONCE 1 day calcium carbonate 1,000 mg (2 x 500 mg calcium (1,250 mg)) PO DAILY 90 days carvedilol 6.25 mg PO BID 90 days cholecalciferol (vitamin D3) (Vitamin D3) 25 mcg PO DAILY compress.stocking,knee,reg,med 15-20 cm furosemide 20 mg PO BID gabapentin 300 mg PO BEDTIME montelukast 10 mg PO DAILY nebulizers As directed pantoprazole 40 mg PO DAILY polyethylene glycol 3350 (Miralax) 238 grams PO ONCE Shower Chair As directed triamcinolone acetonide 0.5% 1 appl topical BID PRN 30 days Do you need a note to return to daycare/school/sports/work: No HPI HPI Comments History of Present Illness Details 63-year-old Emirati Speaking female presents to walk in clinic with c/o bilateral knee pain x 2 weeks. Daughter is present and interpreting. She endorses bilateral knee pain that is more prominent at the posterior knees, she has been having difficulty ambulating due to the severity of pain, and now needs to ambulate with a cane due to ongoing bilateral knee pain. She denies any recent fall, trauma or strain, she also denies calf tenderness, pain radiating down either leg, CP, SOB, dizziness, abdominal pain, changes in bowels or bladder. He daughter endorses she has taken Acetaminophen with no relief. [facility] Medical History Dyspnea Swelling of lower extremity Gross hematuria Onychomycosis Polyarthralgia Chronic back pain Migraine Hypovitaminosis D Paroxysmal atrial fibrillation Morbid obesity with BMI of 40.0-44.9, adult Sinusitis GERD (gastroesophageal reflux disease) Pure hypercholesterolemia Obesity JOHN on CPAP Asthma Surgical History Hx of colonoscopy History of pterygium excision History of total abdominal hysterectomy and bilateral salpingo-oophorectomy History of section History of appendectomy Family History Father CVD (cardiovascular disease) Mother Hypertension Brother Colon cancer Sister Colon cancer Thyroid cancer Sister Lupus Maternal Aunt Breast cancer Family/Other FH: mental illness Social History Housing: Apartment Alcohol intake: never Patient Tobacco Use Status: Never used Tobacco e-Cigarette/Vaping Use: Never Used Second Hand Smoke Exposure: No service: No Current occupational status: disabled Cognitive needs: No Hearing needs: No Vision needs: Yes Review of Systems Const All systems reviewed & are unremarkable except as noted in HPI and below Physical Exam Vital Signs: Last Vital Signs Temp 98.0 F 03/30/23 11:42 Pulse 76 03/30/23 11:42 BP 126/72 03/30/23 11:42 Pulse Ox 97 03/30/23 11:42 Oxygen Delivery Method Room Air 03/30/23 11:42 BMI result Body Mass Index 43.3 Const General: cooperative, no acute distress and alert Nutritional Appearance: obese morbidly obese Orientation/consciousness: patient oriented x3 Limitations: ambulation with cane HEENT Head: Yes normal to inspection, Yes normocephalic and Yes atraumatic Ears: hearing grossly normal bilaterally and TM's normal bilaterally Mouth: moist mucous membranes Eyes General: appearance normal, both eyes and all related structures Neck Neck: Yes normal visual inspection, Yes full ROM, Yes no lymphadenopathy and Yes supple Chest Chest palpation & inspection: normal inspection of the chest Resp Effort & Inspection: normal respiratory effort, no cough, no respiratory distress and not tachypneic Auscultation: clear to auscultation bilaterally Cardio Rate: regular rate Rhythm: regular rhythm Heart sounds: S1 normal heart sound present and S2 normal heart sound present Peripheral pulses: Peripheral pulses 2+ throughout GI Inspection: Yes obesity Palpation (GI): Soft to palpation and nontender Auscultation: normal bowel sounds Neuro General: patient oriented x3 Extrem Right lower extremity: normal capillary refill, edema Details: non-pitting and 2+ and knee Details: normal to inspection, tenderness and abnormal ROM Details: pain with active ROM during and pain with passive ROM during; no swelling, no crepitus and no deformity; no cyanosis Left lower extremity: normal capillary refill, edema Details: non-pitting and 2+ and knee Details: tenderness and abnormal ROM Details: pain with active ROM and pain with passive ROM; no swelling, no crepitus and no deformity; no cyanosis Psych Appearance: well kempt Speech and movement: Clear speech present Affect: normal affect Attitude: cooperative Results Reviewed Results Reviewed: [facility] [place] [facility] [address], [place] [address] XRay Report Signed Patient: Sarah Lo MR#: [id number] : 1960 Acct:[id number] Age/Sex: 63 / F ADM Date: 03/30/23 Loc: .[facility] Attending Dr: Lisa Almodovar CNP Ordering Physician: Lisa Almodovar CNP Date of Service: 03/30/23 Procedure(s): XR knee standing BI Accession Number(s): [id number] cc: Lisa Almodovar CNP; Simran Petersen MD~ EXAMINATION: AP and lateral views of both knees standing. CLINICAL INFORMATION: Pain in right knee COMPARISON: X-rays of the right knee March 2016 and left knee February 2020 TECHNIQUE: Standing AP and lateral views of both knees FINDINGS: Right knee: Medial compartment: Joint space narrowing marginal osteophytes and subchondral cystic change indicative of mild osteoarthritis unchanged. Lateral compartment marginal osteophytes without joint space narrowing. Patellofemoral compartment Limited evaluation given the lateral view only. Marginal osteophytes indicative of mild osteoarthritis. No change. No effusion Left knee: Medial compartment: Joint space narrowing marginal osteophytes with subchondral cystic change indicative of moderate osteoarthritis. Lateral compartment marginal osteophytes without joint space narrowing indicative of mild osteoarthritis. The compartment marginal osteophytes indicative of mild osteoarthritis. No effusion. XR/XR knee standing BI IMPRESSION: RIGHT KNEE: Osteoarthritis unchanged. LEFT KNEE: Osteoarthritis unchanged Assessment & Plan Assessment & Plan (1) Bilateral knee pain: Code(s): M25.561 - Pain in right knee; M25.562 - Pain in left knee Qualifiers: Chronicity: acute Qualified Code(s): M25.561 - Pain in right knee; M25.562 - Pain in left knee Plan: 63-year-old obese Emirati-speaking female seen today in office for complaint of bilateral knee pain x2 weeks, x-ray reveals bilateral knee osteoarthritis with no changes compared to 2016 in 2019. Patient and daughter endorse patient can not take NSAIDs, will order Voltaren topical ointment to bilateral knees q.i.d. p.r.n. 1. Tylenol 1000 mg, orally, every 6 hours as needed for bilateral knee pain 2. Lidocaine patch, available [id number] and should be apply to area of maximal tenderness as directed on the outside packaging. 3. Voltaren topical to bilateral knee pain qid prn. 4. Ice to knee pain twice a day, may alternate w/ heat therapy. 5. Follow up with PCP, Dr. Boothe, scheduled for 04/02/23; may benefit from referral to physical therapy or pain management consult for possible steroid injections. Call office, or go to ER for acute worsening of symptoms. (2) Osteoarthritis of both knees: Code(s): M17.0 - Bilateral primary osteoarthritis of knee Qualifiers: Osteoarthritis type: other secondary Qualified Code(s): M17.4 - Other bilateral secondary osteoarthritis of knee Plan: x-ray reveals bilateral knee osteoarthritis with no changes compared to 2016 in 2019, reviewed with patient and daughter. 1. Tylenol 1000 mg, orally, every 6 hours as needed for bilateral knee pain 2. Lidocaine patch, available [id number] and should be apply to area of maximal tenderness as directed on the outside packaging. 3. Voltaren topical to bilateral knee pain qid prn. 4. Ice to knee pain twice a day, may alternate w/ heat therapy. 5. Follow up with PCP, Dr. Boothe, scheduled for 04/02/23; may benefit from referral to physical therapy or pain management consult for possible steroid injections. Call office, or go to ER for acute worsening of symptoms. (3) Morbid obesity with BMI of 40.0-44.9, adult: Code(s): E66.01 - Morbid (severe) obesity due to excess calories; Z68.41 - Body mass index [BMI] 40.0-44.9, adult Plan: Morbid obesity contributing to acute bilateral knee pain Encouraged diet and exercise; may benefit from Ozempic for weight loss as the benefits outweigh the risks. Orders: Orders XR knee standing BI 03/30/23 M25.561 - Pain in right knee, M25.562 - Pain in left knee Medications: New diclofenac sodium 1% (Aleve (diclofenac)) apply to bilateral knee's 2 grams topical QID PRN 100 grams 0RF pain, severe M17.0 - Bilateral primary osteoarthritis of knee Coding Level of Care Code Est Pt Level 3 (74266) Diagnoses Acute pain of both knees M25.561; M25.562 Chronicity: acute Other secondary osteoarthritis of both knees M17.4 Osteoarthritis type: other secondary Morbid obesity with BMI of 40.0-44.9, adult E66.01; Z68.41
[2023-03-30 11:42] VITALS: BP 126/72; PULSE 76; TEMP 36.7; O2SAT 97; BMI 43.3
== END 2023-03-30 13:03 | disposition home or self-care (01) ==
PROVIDERS: PCP Internal Medicine; Visit Provider Nurse Practitioner Acute Care
DX: M25.561 Pain in right knee (principal); E66.01 Morbid (severe) obesity due to excess calories; Z68.41 Body mass index [BMI] 40.0-44.9, adult; M25.562 Pain in left knee; M17.4 Other bilateral secondary osteoarthritis of knee
CPT/HCPCS: 99213

== ENCOUNTER 2023-03-30 12:33 | Outpatient (REF) | payer OTHER, SELFPAY ==
--- NOTE | ~2023-03-30 | XR_ITS ---
EXAMINATION: AP and lateral views of both knees standing. CLINICAL INFORMATION: Pain in right knee COMPARISON: X-rays of the right knee March 2016 and left knee February 2020 TECHNIQUE: Standing AP and lateral views of both knees FINDINGS: Right knee: Medial compartment: Joint space narrowing marginal osteophytes and subchondral cystic change indicative of mild osteoarthritis unchanged. Lateral compartment marginal osteophytes without joint space narrowing. Patellofemoral compartment Limited evaluation given the lateral view only. Marginal osteophytes indicative of mild osteoarthritis. No change. No effusion Left knee: Medial compartment: Joint space narrowing marginal osteophytes with subchondral cystic change indicative of moderate osteoarthritis. Lateral compartment marginal osteophytes without joint space narrowing indicative of mild osteoarthritis. The compartment marginal osteophytes indicative of mild osteoarthritis. No effusion. XR/XR knee standing BI IMPRESSION: RIGHT KNEE: Osteoarthritis unchanged. LEFT KNEE: Osteoarthritis unchanged
== END 2023-03-30 12:34 | disposition home or self-care (01) ==
LOC: HO.HMGCX 12:33
PROVIDERS: PCP Internal Medicine; Visit Provider Nurse Practitioner Acute Care
DX: M25.561 Pain in right knee (principal); M25.562 Pain in left knee
CPT/HCPCS: 73565

== ENCOUNTER 2023-04-02 16:05 | Outpatient (AMB) | payer OTHER, SELFPAY ==
--- NOTE | 2023-04-02 16:09 | A.OFFPC_ITS ---
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 Required: No Accompanied by: Friend Allergies naproxen Allergy (Severe, Verified 04/02/23 16:29) muscle aches sertraline Allergy (Severe, Verified 04/02/23 16:29) muscle aches amoxicillin [From Augmentin] Allergy (Mild, Verified 04/02/23 16:29) Unknown clavulanic acid [From Augmentin] Allergy (Mild, Verified 04/02/23 16:29) Unknown Medication List - Last Reconciled 04/02/23 by Simran Thompson MD albuterol sulfate 90 mcg/actuation 2 inhalations inhalation Q6H PRN aspirin 81 mg PO DAILY atorvastatin 40 mg PO BEDTIME 90 days bisacodyl (Dulcolax (bisacodyl)) 20 mg (4 x 5 mg) PO ONCE 1 day calcium carbonate 1,000 mg (2 x 500 mg calcium (1,250 mg)) PO DAILY 90 days carvedilol 6.25 mg PO BID 90 days cholecalciferol (vitamin D3) (Vitamin D3) 25 mcg PO DAILY compress.stocking,knee,reg,med 15-20 cm diclofenac sodium 1% (Aleve (diclofenac)) 2 grams topical QID PRN furosemide 20 mg PO BID gabapentin 300 mg PO BEDTIME montelukast 10 mg PO DAILY nebulizers As directed pantoprazole 40 mg PO DAILY polyethylene glycol 3350 (Miralax) 238 grams PO ONCE Shower Chair As directed triamcinolone acetonide 0.5% 1 appl topical BID PRN 30 days Tobacco use date assessed: 04/02/23 Fall risk assessment: No Falls in past year Last assessed Fall Risk: 04/02/23 Dental Screening Dental Screen Date: 04/02/23 Did you have a dental visit in the last 12 months?: No Did you have a dental problem in the last 6 months where you did not have access to dental care?: No Was dental information given to patient?: Patient has dentist HPI HPI Comments History of Present Illness Details This is a 63-year-old female with GERD, pure hypercholesterolemia, morbid obesity and knee osteoarthritis that complains of bilateral knee pain more prominent in the back part. Use a cane for gait stability. The would like a referral to ortho. GERD stable with PPIs. Cholesterol well controlled with statins. She is morbidly obese with a BMI of 43.2 and declines weight loss surgery. Was advised to diet and exercise to reach BMI goal less than 30. [facility] Medical History Dyspnea Swelling of lower extremity Gross hematuria Onychomycosis Polyarthralgia Chronic back pain Migraine Hypovitaminosis D Paroxysmal atrial fibrillation Morbid obesity with BMI of 40.0-44.9, adult Sinusitis GERD (gastroesophageal reflux disease) Pure hypercholesterolemia Obesity JHON on CPAP Asthma Surgical History Hx of colonoscopy History of pterygium excision History of total abdominal hysterectomy and bilateral salpingo-oophorectomy History of section History of appendectomy Family History Father CVD (cardiovascular disease) Mother Hypertension Brother Colon cancer Sister Colon cancer Thyroid cancer Sister Lupus Maternal Aunt Breast cancer Family/Other FH: mental illness Social History Housing: Apartment Alcohol intake: never Patient Tobacco Use Status: Never used Tobacco e-Cigarette/Vaping Use: Never Used Second Hand Smoke Exposure: No service: No Current occupational status: disabled Cognitive needs: No Hearing needs: No Vision needs: Yes Questionnaire PHQ-9 Over the last 2 weeks, how often have you been bothered by any of the following problems? 1. Little interest or pleasure in doing things: not at all 2. Feeling down, depressed, or hopeless: not at all 3. Trouble falling or staying asleep, or sleeping too much: more than half the days 4. Feeling tired or having little energy: not at all 5. Poor appetite or overeating: more than half the days 6. Feeling bad about yourself - or that you are a failure or have let yourself or your family down: not at all 7. Trouble concentrating on things, such as reading the newspaper or watching television: not at all 8. Moving or speaking so slowly that other people could have noticed. Or the opposite - being so fidgety or restless that you have been moving around a lot more than usual: not at all 9. Thoughts that you would be better off or of hurting yourself in some way: not at all Total score: 4 Depression Screening Interpretation: Positive Depression Screening Follow-up: Existing condition Depression Screening Done: Yes 04483 - PHQ-9 Billing: Yes Source: Developed by Drs. Yann Frausto, Kelly Johnson, Ellis Berumen and colleagues, with an educational lisette from [employer]. Thrive Questionnaire Date Thrive assessed: 04/02/23 I am a: Patient What is your living situation today?: I have a steady place to live Within the past 12 months, did the food you bought not last and you didn't have the money to get more?: Never true Within the past 12 months, did you worry whether your food would run out before you got money to buy more?: Never true Do you have trouble paying for medicines?: No Do you have trouble getting transportation to medical appointments?: No Do you have trouble paying your heating and electricity bill?: No Do you have trouble taking care of your child, family member or friend?: No Do you have trouble with day-to-day activities such as bathing, preparing meals, shopping, managing finances, etc.?: No Are you currently unemployed and looking for a job?: No Are you interested in more education?: No Please select the resources that you would like help with: None Currently or been in a relationship where the following occur: no concerns reported THRIVE Score: 0 AUDIT C Alcohol Use Questionnaire (AUDIT-C) 1. How often do you have a drink containing alcohol?: Never Total Score: 0 LI-7 AMB Questionnaire LI-7 Date LI - 7 assessed: 04/02/23 Feeling nervous, anxious, or on edge: 3 = Nearly every day Not being able to stop or control worryin = Several days Worrying too much about different things: 3 = Nearly every day Trouble relaxin = Several days Being so restless that it is hard to sit still: 1 = Several days Becoming easily annoyed or irritable: 0 = Not at all Feeling afraid as if something awful might happen: 0 = Not at all Total IL-7 score (0-4 normal; 5-9 mild; 10-14 moderate; 15-21 severe): 9 Source: Developed by Drs. Yann Frausto, Kelly Johnson, Ellis Berumen and colleagues, with an educational lisette from [employer]. LI-7 Assessment Billing LI-7 Assessment Tool: LI-7 Assessment 17424 Review of Systems Const All systems reviewed & are unremarkable except as noted in HPI and below Eyes Reports no additional complaints, Denies change in vision and Denies other visual disturbances Card Denies chest pain at rest, Denies chest pain with activity, Denies edema, Denies irregular heart rhythm, Denies claudication, Denies dyspnea, Denies dyspnea on exertion, Denies orthopnea, Denies paroxysmal nocturnal dyspnea and Denies slow heart rate Resp Denies cough, Denies dyspnea and Denies dyspnea on exertion GI Denies abdominal pain, Denies change in bowel habits, Denies excessive flatus, Denies nausea and Denies vomiting Denies urinary incontinence, Denies urinary hesitancy and Denies urinary urgency Musc Denies abnormal gait, Denies atrophy, Denies deformity and Denies limited range of motion Skin/Breast Denies bleeding lesions, Denies changing lesions and Denies rash Neuro Denies abnormal gait and Denies lack of coordination Physical exam (Primary Care) Vital Signs: Last Vital Signs BP 120/68 04/02/23 16:10 BMI result Body Mass Index 43.2 Tobacco/Smoking Status: Tobacco use Status Tobacco use date assessed 04/02/23 04/02/23 16:14 Patient Tobacco Use Status Never used Tobacco 04/02/23 16:10 e-Cigarette/Vaping Use Never Used 04/02/23 16:10 PHQ-9: PHQ-9 Score PHQ-9: Total score 4 04/02/23 16:32 Depression Screening Interpretation: Positive Depression Screening Follow-up: Existing condition Thrive Assessment: Date of Thrive Assessment Date Thrive assessed 04/02/23 04/02/23 16:14 Currently or been in a relationship where the following occur: no concerns reported Eyes General: appearance normal, both eyes and all related structures Eyelids: Yes eyelids normal Conjunctivae: conjunctivae normal Neck Neck: Yes normal visual inspection and Yes supple Resp Effort & Inspection: normal respiratory effort Auscultation: clear to auscultation bilaterally Cardio Jugular venous distension: no JVD Rate: regular rate Rhythm: regular rhythm Heart sounds: S1 normal heart sound present and S2 normal heart sound present Extrem General: Yes full ROM Assessment and Plan Assessment & Plan (1) Osteoarthritis of both knees: Code(s): M17.0 - Bilateral primary osteoarthritis of knee Qualifiers: Osteoarthritis type: other secondary Qualified Code(s): M17.4 - Other bilateral secondary osteoarthritis of knee Plan: Continue diclofenac gel. Referred to Ortho. (2) Morbid obesity with BMI of 40.0-44.9, adult: Code(s): E66.01 - Morbid (severe) obesity due to excess calories; Z68.41 - Body mass index [BMI] 40.0-44.9, adult Plan: Start diet and exercise. BMI goal is less than 30. (3) GERD (gastroesophageal reflux disease): Code(s): K21.9 - Gastro-esophageal reflux disease without esophagitis Qualifiers: Esophagitis presence: esophagitis presence not specified Qualified Code(s): K21.9 - Gastro-esophageal reflux disease without esophagitis Plan: Continue PPIs. (4) Pure hypercholesterolemia: Code(s): E78.00 - Pure hypercholesterolemia, unspecified Plan: Continue statins. Orders: Referrals Orthopedics Referral M17.0 - Bilateral primary osteoarthritis of knee Coding Level of Care Code Est Pt Level 4 (54335) Diagnoses Other secondary osteoarthritis of both knees M17.4 Osteoarthritis type: other secondary Morbid obesity with BMI of 40.0-44.9, adult E66.01; Z68.41 Gastroesophageal reflux disease, unspecified whether esophagitis present K21.9 Esophagitis presence: esophagitis presence not specified Pure hypercholesterolemia E78.00 Additional Codes LI-7 Assessment Billing - LI-7 Assessment Tool: LI-7 Assessment 00721 ([id number]) Time Spent (min) 23
[2023-04-02 16:10] VITALS: BP 120/68; BMI 43.2
== END 2023-04-02 16:35 | disposition home or self-care (01) ==
PROVIDERS: PCP Internal Medicine; Visit Provider Internal Medicine
DX: M17.4 Other bilateral secondary osteoarthritis of knee (principal); E66.01 Morbid (severe) obesity due to excess calories; Z68.41 Body mass index [BMI] 40.0-44.9, adult; K21.9 Gastro-esophageal reflux disease without esophagitis; E78.00 Pure hypercholesterolemia, unspecified
CPT/HCPCS: 99214

== ENCOUNTER 2023-05-16 10:53 | Outpatient (AMB) | payer OTHER, SELFPAY ==
--- NOTE | 2023-05-16 11:05 | A.OFFVIS_ITS ---
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 I would seen her in the remote past and discussed injections versus surgery. She has pain intermittently but over the last several months has had worsening pain. Her left knee is worse than her right. She walks with a cane. She is difficulty going up and down stairs. She is difficulty standing from a seated position. [facility] Medical History Dyspnea Swelling of lower extremity Gross hematuria Onychomycosis Polyarthralgia Chronic back pain Migraine Hypovitaminosis D Paroxysmal atrial fibrillation Morbid obesity with BMI of 40.0-44.9, adult Sinusitis GERD (gastroesophageal reflux disease) Pure hypercholesterolemia Obesity JOHN on CPAP Asthma Surgical History Hx of colonoscopy History of pterygium excision History of total abdominal hysterectomy and bilateral salpingo-oophorectomy History of section History of appendectomy Family History Father CVD (cardiovascular disease) Mother Hypertension Brother Colon cancer Sister Colon cancer Thyroid cancer Sister Lupus Maternal Aunt Breast cancer Family/Other FH: mental illness Social History Housing: Apartment Alcohol intake: never Patient Tobacco Use Status: Never used Tobacco e-Cigarette/Vaping Use: Never Used Second Hand Smoke Exposure: No service: No Current occupational status: disabled Cognitive needs: No Hearing needs: No Vision needs: Yes Physical Exam Const General: cooperative, healthy appearing, no acute distress, well developed and alert HEENT Head: Yes normal to inspection, Yes normocephalic and Yes atraumatic Mouth: moist mucous membranes Eyes General: appearance normal, both eyes and all related structures EOM: EOMs intact bilaterally Chest Other: no audible wheezing. Resp Other: No audible wheezing Effort & Inspection: normal respiratory effort Cardio Other: Radial pulse palpable with no rythmic abnormalities Back/Spine/Pelvis Cervical Spine: normal cervical lordosis Skin General skin exam: no rashes or lesions noted Neuro General: no focal motor deficits Extrem Other: Abundant soft tissues about the legs but varus alignment left greater than right and tenderness palpation medial compartment with mild bilateral joint effusions. Positive gait antalgia. 5-120 degrees of motion bilaterally Psych Appearance: grossly normal and well kempt Mental Status: mental status grossly normal Speech and movement: Normal speech and movement present Affect: normal affect Attitude: cooperative Office Procedures Joint Injection/Drain Joint Injection/Drain Details: Injected 1 mL of Decadron and 3 mL 1% lidocaine and 3 mL of 0.25% Marcaine. Site was prepped using aseptic technique. Patient tolerated the procedure well. Primary Site: right knee Secondary Site: left knee Approach Used: anterolateral Coding - Large joint - Glenohumeral/Tronchanteric Bursa/Intraarticular Procedure code (CPT) selection complete Assessment & Plan Assessment & Plan (1) Osteoarthritis of both knees: Code(s): M17.0 - Bilateral primary osteoarthritis of knee Qualifiers: Osteoarthritis type: other secondary Qualified Code(s): M17.4 - Other bilateral secondary osteoarthritis of knee Plan: This is a 63-year-old pleasant woman with bilateral knee osteoarthritis. I injected both her knees after discussion about treatment options. Her BMI is over acceptable limits. We will see how she does with the injections and she can follow up as needed. Quality Reporting (2019) Adult ([facility] 138/05/02/68) Smoking risk assessment performed?: Yes Patient Tobacco Use Status: Never used Tobacco Coding Level of Care Code New Pt Level 3 (66739) Diagnoses Other secondary osteoarthritis of both knees M17.4 Osteoarthritis type: other secondary CPT Codes Coding - Large joint: 84313 - Large joint ([id number]) Coding - Joint 7: - Glenohumeral/Tronchanteric Bursa/Intraarticular ([id number])
== END 2023-05-16 11:56 | disposition home or self-care (01) ==
PROVIDERS: PCP Internal Medicine; Visit Provider Orthopaedic Surgery
DX: M17.4 Other bilateral secondary osteoarthritis of knee (principal)
CPT/HCPCS: 20610; 99203

== ENCOUNTER → 2023-05-16 10:53 | Outpatient (BNVA) | payer OTHER, SELFPAY | PROVIDERS: PCP Internal Medicine; Visit Provider Orthopaedic Surgery | DX: M17.4 Other bilateral secondary osteoarthritis of knee (principal) | CPT/HCPCS: 20610; 99202; J0665; J1100 ==

== ENCOUNTER 2023-05-17 09:32 | Outpatient (AMB) | payer OTHER, SELFPAY ==
--- NOTE | 2023-05-17 09:35 | MHC.OFFVIS ---
Intake Vital Signs 05/17/23 09:38 Height 5 ft 2 in Weight 241 lb 6.499 oz BMI 44.1 BP 102/62 Blood Pressure Location Lt brachial Position Sitting Pulse 69 Pulse Source Doppler Pulse Oximetry (%) 98 Oxygen Delivery Method Room Air Intake Visit Reasons: Obstructive sleep apnea Allergies naproxen Allergy (Severe, Verified 05/17/23 09:40) muscle aches sertraline Allergy (Severe, Verified 05/17/23 09:40) muscle aches amoxicillin [From Augmentin] Allergy (Mild, Verified 05/17/23 09:40) Unknown clavulanic acid [From Augmentin] Allergy (Mild, Verified 05/17/23 09:40) Unknown HPI HPI Comments History of Present Illness Details The patient is a 62-year-old woman known history of asthma in addition to a cardiac history including atrial fibrillation and hypertension. She has been having worsening daytime drowsiness. Also complaining of headaches. In also with her cardiac history she did undergo a sleep study at the laboratory. It demonstrated that she did have ieyf-oz-ewrekyts obstructive sleep apnea. She also has significant desaturations down to 83%. She then underwent titration study recommended that she should start CPAP therapy. The CPAP therapy was affecting beneficial. Initially she started with a nasal mask but then switched over to a fullface mask that apparently work better. At this point we did go over the therapy for obstructive sleep apnea and with her cardiac history I did recommend she start CPAP therapy. She is agreeable to this and we will set her up with a local [employer] company. In the meantime she does complaint of nasal congestion also shortness of breath. She does have a history of asthma. She does have a rescue inhaler that she uses as needed. She has not had to use in the last week. Although she feels like she is getting more congested. 11/28/2021 the patient is here for a pulmonary follow-up visit. The patient overall has been doing relatively well. Although she is having increased daytime drowsiness. She start using the CPAP. She could not tolerated. She is also having issues with tachycardia and SVT. She will be followed up with a [employer]orer [employer] soon. Explained to her that this may be from untreated sleep apnea. The patient would like to hold off on the CPAP for now. Patient is no longer getting supplies likely based on the fact that she has been using it. If she does want to go back to using it she will have to probably get another sleep study to get reoccur intubated with a DME company. Once she wants to start using it she can always call the office so we can reset the machine to a pressure that she can not tolerate better. From a respiratory status the patient is doing relatively well. She is using her rescue inhaler on a regular basis usually on a daily basis. Therefore, at this point the patient will be started on maintenance inhaler with hopes that she does not require her rescue inhaler as often. The patient is agreeable to this. 05/28/2022 the patient is here for a pulmonary follow-up visit. The patient has been doing well from a respiratory status. Weight did send her prescription for Breo. She does not use it all the time. Explained to her that she should definitely use it routinely. She also has a rescue inhaler that she can use as needed. The patient is breathing well and denies any significant shortness of breath. Her main issue is her knee discomfort keeping her from being able to move exercise regularly. In addition to this the patient has not been using the CPAP. She rather not use it. She is waking up rested. Her Delta score is 7/24. She is going to continue to try positional therapy. Unfortunately though she has having hard time sleeping on her sides because she is having some left-sided discomfort in her flank. The patient was evaluated by her primary care doctor who ordered a renal ultrasound demonstrating either a cyst or a dilated pelvis of the kidney. I did give her the report and she needs to talk to her primary care doctor regarding the abnormal finding. It is a clear this was causing the discomfort but still should be looked that the since the patient continues to be symptomatic. 11/20/2022 the patient is here for a pulmonary follow-up visit. Overall she is doing well from a respiratory status. She is no longer using the Breo inhaler. She does use her rescue inhaler but typically less than 2 times a week. Does have dyspnea on exertion. Some component of deconditioning. in addition to this the patient has not been using CPAP. We did talk about the importance of positional therapy for sleep apnea. She does wake up rested. Her Delta score is around 7/24. She continues on her cardiac medications. Otherwise patient is without any other complaints. Will have her return in 6 months with a follow-up chest x-ray at that time. If the patient has any worsening symptoms prior to the next visit she is to call the office for an earlier assessment. 05/17/2023 the patient is here for a pulmonary follow-up visit. She still complains of dyspnea on exertion. Aahz-tw-vvejhwgh severity. With minimal activity. She also complains of worsening lower extremity edema. She has been struggling with this for some time. She is already on diuretics. We did talk about dietary indiscretions. This continue low-sodium diet. 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 The patient also has not been using her CPAP and explained to her that can also resulting worsening lower extremity edema. In view of the worsening shortness of breath in the lower extremity edema will request a chest x-ray and also an echocardiogram. Will reassess her with an overnight oximetry as well. In the meantime she should try the compression stockings. Continue with current respiratory medications and follow-up after her studies. [facility] Medical History Dyspnea Swelling of lower extremity Gross hematuria Onychomycosis Polyarthralgia Chronic back pain Migraine Hypovitaminosis D Paroxysmal atrial fibrillation Morbid obesity with BMI of 40.0-44.9, adult Sinusitis GERD (gastroesophageal reflux disease) Pure hypercholesterolemia Obesity JOHN on CPAP Asthma Surgical History Hx of colonoscopy History of pterygium excision History of total abdominal hysterectomy and bilateral salpingo-oophorectomy History of section History of appendectomy Family History Father CVD (cardiovascular disease) Mother Hypertension Brother Colon cancer Sister Colon cancer Thyroid cancer Sister Lupus Maternal Aunt Breast cancer Family/Other FH: mental illness Social History Housing: Apartment Alcohol intake: never Patient Tobacco Use Status: Never used Tobacco e-Cigarette/Vaping Use: Never Used Second Hand Smoke Exposure: No service: No Current occupational status: disabled Cognitive needs: No Hearing needs: No Vision needs: Yes Review of Systems Const Denies daytime sleepiness and Denies weakness ENT Denies dizziness Card Reports leg edema, Denies palpitations and Reports dyspnea on exertion Resp Reports cough, Reports dyspnea on exertion and Denies wheezing GI Denies hematochezia and Denies change in stool character Reports flank pain Musc Denies numbness Neuro Denies dizziness, Denies numbness and Denies weakness Endo Denies palpitations Aller/Immun Denies wheezing Physical Exam Vital Signs: Last Vital Signs Pulse 69 05/17/23 09:38 BP 102/62 05/17/23 09:38 Pulse Ox 98 05/17/23 09:38 Oxygen Delivery Method Room Air 05/17/23 09:38 BMI result Body Mass Index 44.1 Const General: alert Neck Neck: Yes normal visual inspection, Yes full ROM and Yes no lymphadenopathy Chest Chest palpation & inspection: normal inspection of the chest Resp Auscultation: diminished lung sounds Cardio Rate: regular rate Rhythm: regular rhythm Heart sounds: S1 normal heart sound present and S2 normal heart sound present GI Palpation (GI): Soft to palpation and nontender Auscultation: normal bowel sounds Skin General skin exam: rashes and/or lesions noted Extrem General: Yes edema Assessment & Plan Assessment & Plan (1) Dyspnea: Code(s): R06.00 - Dyspnea, unspecified Qualifiers: Dyspnea type: dyspnea on exertion Qualified Code(s): R06.09 - Other forms of dyspnea (2) Asthma: Code(s): J45.909 - Unspecified asthma, uncomplicated Qualifiers: Asthma complication type: uncomplicated Asthma persistence: persistent Asthma severity: moderate Qualified Code(s): J45.40 - Moderate persistent asthma, uncomplicated (3) GERD (gastroesophageal reflux disease): Code(s): K21.9 - Gastro-esophageal reflux disease without esophagitis Qualifiers: Esophagitis presence: esophagitis presence not specified Qualified Code(s): K21.9 - Gastro-esophageal reflux disease without esophagitis Plan MATHEW as needed stopped Breo positional therapy diuresis as tolerated compression stockings CXR ECHO overnight oximetry F/U 6 months Orders: Orders CA echo transthoracic complete 05/17/23 I27.20 - Pulmonary hypertension, unspecified Overnight Pulse Oximetry 05/17/23 J45.909 - Unspecified asthma, uncomplicated XR chest 2V 05/17/23 R06.00 - Dyspnea, unspecified Medications: Refilled compress.stocking,knee,reg,med 15-20 cm 2 ea 0RF M79.89 - Other specified soft tissue disorders Quality Reporting (2019) Adult ([facility] 138/05/02/68) Smoking risk assessment performed?: Yes Patient Tobacco Use Status: Never used Tobacco Coding Level of Care Code Est Pt Level 4 (15589) Diagnoses Dyspnea on exertion R06.09 Dyspnea type: dyspnea on exertion Moderate persistent asthma without complication J45.40 Asthma complication type: uncomplicated Asthma persistence: persistent Asthma severity: moderate Gastroesophageal reflux disease, unspecified whether esophagitis present K21.9 Esophagitis presence: esophagitis presence not specified Time Spent (min) 17
[2023-05-17 09:38] VITALS: BP 102/62; PULSE 69; O2SAT 98; BMI 44.1
== END 2023-05-17 10:29 | disposition home or self-care (01) ==
PROVIDERS: PCP Internal Medicine; Visit Provider Hospitalist
DX: R06.09 Other forms of dyspnea (principal); J45.40 Moderate persistent asthma, uncomplicated; K21.9 Gastro-esophageal reflux disease without esophagitis
CPT/HCPCS: 99214

== ENCOUNTER → 2023-05-17 09:32 | Outpatient (BNVA) | payer OTHER, SELFPAY | PROVIDERS: PCP Internal Medicine; Visit Provider Hospitalist | DX: J45.40 Moderate persistent asthma, uncomplicated (principal); R06.09 Other forms of dyspnea; K21.9 Gastro-esophageal reflux disease without esophagitis | CPT/HCPCS: 99212 ==

== ENCOUNTER 2023-06-06 09:28 | Outpatient (REF) | payer OTHER, SELFPAY ==
--- NOTE | ~2023-06-06 | XR_ITS ---
EXAMINATION: XR CHEST CLINICAL INFORMATION: Dyspnea, unspecified COMPARISON: Chest 03/12/2017, 01/23/2019 TECHNIQUE: 2 views of the chest were obtained. FINDINGS: The lungs are well expanded. Again noted is prominence of the interstitial markings. No focal consolidation, interstitial pulmonary edema or pneumothorax. No pleural effusion. Probable small hiatal hernia. The cardiomediastinal silhouette is within normal limits. There is mild thoracolumbar scoliosis with degenerative changes. XR/XR chest 2V IMPRESSION: No acute cardiopulmonary disease.
== END 2023-06-06 09:29 | disposition home or self-care (01) ==
LOC: HO.XRAY 09:28
PROVIDERS: PCP Internal Medicine; Visit Provider Hospitalist
DX: R06.00 Dyspnea, unspecified (principal)
CPT/HCPCS: 71046

== ENCOUNTER 2023-06-10 09:29 | Outpatient (AMB) | payer OTHER, SELFPAY ==
--- NOTE | 2023-06-10 09:42 | MHC.OFFVIS ---
Intake Vital Signs 06/10/23 09:43 Height 5 ft 2 in Weight 240 lb 4.862 oz BMI 43.9 BP 120/74 Blood Pressure Location Lt brachial Position Sitting Pulse 66 Pulse Source Monitor Intake Visit Reasons: Pre op colonoscopy 4-10/14 mth fu (KM) Print Shop Assistant Required: Yes Print Shop Assistant Language: Senior J2Ee Developer Name: amish lund [id number] Allergies naproxen Allergy (Severe, Verified 06/10/23 09:46) muscle aches sertraline Allergy (Severe, Verified 06/10/23 09:46) muscle aches amoxicillin [From Augmentin] Allergy (Mild, Verified 06/10/23 09:46) Unknown clavulanic acid [From Augmentin] Allergy (Mild, Verified 06/10/23 09:46) Unknown Medication List - Last Reconciled 06/10/23 by GILA BlantonC albuterol sulfate 90 mcg/actuation 2 inhalations inhalation Q6H PRN aspirin 81 mg PO DAILY atorvastatin 40 mg PO BEDTIME 90 days bisacodyl (Dulcolax (bisacodyl)) 20 mg (4 x 5 mg) PO ONCE 1 day carvedilol 6.25 mg PO BID 90 days cholecalciferol (vitamin D3) (Vitamin D3) 25 mcg PO DAILY compress.stocking,knee,reg,med 15-20 cm diclofenac sodium 1% (Aleve (diclofenac)) 2 grams topical QID PRN furosemide 20 mg PO DAILY 90 days gabapentin 300 mg PO BEDTIME montelukast 10 mg PO DAILY nebulizers As directed pantoprazole 40 mg PO DAILY polyethylene glycol 3350 (Miralax) 238 grams PO ONCE Shower Chair As directed triamcinolone acetonide 0.5% 1 appl topical BID PRN 30 days HPI Pre op colonoscopy -10/14 mth fu (KM) HPI Details Sarah is a 63-year-old female with past medical history of hyperlipidemia, morbid obesity, obstructive sleep apnea with CPAP use, paroxysmal atrial fibrillation who presents for follow-up. Today she reports that she will notice heart palpitations at times. She says it feels like her chest is agitated. The episodes can last seconds and up to 1 minute. No sustained prolonged palpitations noted. No chest discomfort at rest or with activity. No concerning shortness of breath, lightheadedness, presyncope, syncope, falls. No PND, orthopnea or edema. Does light physical activities. Takes meds as directed. Tells me she has nosebleeds 1 to 2 times a month. This has been going on for a long time. She has never seen an ENT provider. She also follows with Urology and they tell her she has blood in her urine on the tests. She has never seen pink or red urine. No known ulcers or GI issues. [facility] Medical History Dyspnea Swelling of lower extremity Gross hematuria Onychomycosis Polyarthralgia Chronic back pain Migraine Hypovitaminosis D Paroxysmal atrial fibrillation Morbid obesity with BMI of 40.0-44.9, adult Sinusitis GERD (gastroesophageal reflux disease) Pure hypercholesterolemia Obesity JOHN on CPAP Asthma Surgical History Hx of colonoscopy History of pterygium excision History of total abdominal hysterectomy and bilateral salpingo-oophorectomy History of section History of appendectomy Family History Father CVD (cardiovascular disease) Mother Hypertension Brother Colon cancer Sister Colon cancer Thyroid cancer Sister Lupus Maternal Aunt Breast cancer Family/Other FH: mental illness Social History Housing: Apartment Alcohol intake: never Patient Tobacco Use Status: Never used Tobacco e-Cigarette/Vaping Use: Never Used Second Hand Smoke Exposure: No service: No Current occupational status: disabled Cognitive needs: No Hearing needs: No Vision needs: Yes Review of Systems Const All systems reviewed & are unremarkable except as noted in HPI and below ENT Denies dizziness and Reports epistaxis (1-2 times month for long time ) Card Details: Episodes of sharp pain below right breast Denies chest pain, Denies chest pain at rest, Denies chest pain with activity, Reports rapid heart rate, Denies pedal edema, Denies edema, Denies leg edema, Denies lightheadedness, Reports palpitations, Denies dyspnea, Denies dyspnea on exertion and Denies orthopnea Resp Denies cough, Denies dyspnea and Denies dyspnea on exertion GI Denies hematochezia and Denies change in stool character Details: urine tests show blood in urine. No red urine. Musc Denies abnormal gait, Reports limited range of motion, Reports muscle cramps, Denies muscle weakness, Denies numbness, Denies radiating pain into limb, Denies stiffness and Denies tingling Neuro Denies abnormal gait, Denies dizziness, Denies numbness and Denies tingling Endo Reports palpitations Physical Exam Vital Signs: Last Vital Signs Pulse 66 06/10/23 09:43 BP 120/74 06/10/23 09:43 BMI result Body Mass Index 43.9 Const General: cooperative, healthy appearing, comfortable and no acute distress Orientation/consciousness: patient oriented x3 Neck Neck: Yes normal visual inspection and Yes no JVD Resp Effort & Inspection: normal respiratory effort Auscultation: clear to auscultation bilaterally, no crackles, no rales, no rhonchi and no wheezes Cardio Jugular venous distension: no JVD Rate: regular rate Rhythm: regular rhythm Heart sounds: S1 normal heart sound present, S2 normal heart sound present, no murmurs and no rubs Neuro General: patient oriented x3 Extrem General: Yes normal to inspection, No no pedal edema and No calf tenderness Psych Appearance: grossly normal Mental Status: mental status grossly normal Speech and movement: Normal speech and movement present Office Procedures EKG Details: Today, read by me, SR, no acute ST/ T wave abn, rate 66 [id number], Complete Assessment & Plan Assessment & Plan (1) Paroxysmal atrial fibrillation: Code(s): I48.0 - Paroxysmal atrial fibrillation Plan: History of paroxysmal atrial fibrillation. EKG done today showing normal sinus rhythm, rate 66. She is on carvedilol for heart rate control. She takes aspirin daily. She is not on anticoagulation as of yet. She is now 63 years old, CHADS-VASc score of 2 (age and female). Anticoagulation is recommended. She tells me she has epistaxis 1 to 2 times a month which has occurred for a long time . Also microscopic blood in urine, No gross hematuria. Prior to start of anticoagulation will send her to ENT for evaluation. She is agreeable to this plan. Need for anticoagulation to reduce stroke risk reviewed with her. She can continue on aspirin at this time. Informed her that aspirin does not give her the stroke reduction protection needed. Cardiology follow-up in 2-3 months, sooner if needed (2) JOHN on CPAP: Code(s): G47.33 - Obstructive sleep apnea (adult) (pediatric); Z99.89 - Dependence on other enabling machines and devices Plan: Compliant (3) Epistaxis: Code(s): R04.0 - Epistaxis Plan: As above (4) Morbid obesity with BMI of 40.0-44.9, adult: Code(s): E66.01 - Morbid (severe) obesity due to excess calories; Z68.41 - Body mass index [BMI] 40.0-44.9, adult Plan: Benefit of weight reduction reviewed with her. Consider referral to bariatric program. (5) Preop cardiovascular exam: Code(s): Z01.810 - Encounter for preprocedural cardiovascular examination Plan: Preop for colonoscopy. No known history of CAD or Congestive heart failure. No report of anginal symptoms. No signs of heart failure on examination. History of paroxysmal atrial fibrillation. EKG done today showing sinus rhythm with no acute ST or T-wave abnormalities, rate 66. Cardiac risk factors morbid obesity, hyperlipidemia. Has not started on anticoagulation as of yet. If she is on anticoagulation at the time of her procedure she may hold it for 48 hours and restart as soon as cleared by surgeon to do so. Low to intermediate cardiac risk for the procedure. Plan Time spent on chart review, documentation, interview and assessment Orders: Referrals Ear/Nose/Throat Referral R04.0 - Epistaxis Quality Reporting (2019) Adult ([facility] 13805/02/68) Smoking risk assessment performed?: Yes Patient Tobacco Use Status: Never used Tobacco Coding Level of Care Code Est Pt Level 4 (61703) Diagnoses Paroxysmal atrial fibrillation I48.0 JOHN on CPAP G47.33; Z99.89 Epistaxis R04.0 Morbid obesity with BMI of 40.0-44.9, adult E66.01; Z68.41 Preop cardiovascular exam Z01.810 CPT Codes EKG - CPT: 47893-[id number], Complete ([id number]) Time Spent (min) 28
[2023-06-10 09:43] VITALS: BP 120/74; PULSE 66; BMI 43.9
== END 2023-06-10 10:34 | disposition home or self-care (01) ==
PROVIDERS: PCP Internal Medicine; Visit Provider Nurse Practitioner Family
DX: I48.0 Paroxysmal atrial fibrillation (principal); G47.33 Obstructive sleep apnea (adult) (pediatric); Z99.89 Dependence on other enabling machines and devices; R04.0 Epistaxis; E66.01 Morbid (severe) obesity due to excess calories; Z68.41 Body mass index [BMI] 40.0-44.9, adult; Z01.810 Encounter for preprocedural cardiovascular examination
CPT/HCPCS: 93010; 99214

== ENCOUNTER → 2023-06-10 09:29 | Outpatient (BNVA) | payer OTHER, SELFPAY | PROVIDERS: PCP Internal Medicine; Visit Provider Nurse Practitioner Family | DX: Z01.810 Encounter for preprocedural cardiovascular examination (principal); I27.20 Pulmonary hypertension, unspecified; I48.0 Paroxysmal atrial fibrillation; G47.33 Obstructive sleep apnea (adult) (pediatric); R04.0 Epistaxis; E66.01 Morbid (severe) obesity due to excess calories; Z68.41 Body mass index [BMI] 40.0-44.9, adult; Z99.89 Dependence on other enabling machines and devices | CPT/HCPCS: 93005; 99212 ==

== ENCOUNTER → 2023-06-13 10:41 | Outpatient (REF) | payer OTHER, SELFPAY ==
--- NOTE | 2023-06-13 11:01 | CA_ITS ---
Transthoracic Echocardiogram Patient (Last, First, Middle): Sarah Lo N Gender: Female Date of : 1960 Age: 63 Procedure Date: 06/13/2023 Procedure Type: Transthoracic Echocardiogram Location: OP Height: 157. cm Weight: 106.6 kg BSA: 2.04 m2 Heart Rate: 63 bpm BP: 110 / 70 mmHg Power Wood Sawyer: AKUA Referring MD: Farrukh Eng MD Posting Machine Operator: Abilio Gonzalez MD Symptoms: I27.20 - Pulmonary hypertension, unspecified Study Quality: Fair ECG Rhythm: Sinus Conclusions: - Normal study Findings Left Ventricle Normal left ventricular size, thickness, and systolic function. The visually estimated ejection fraction is between 65-70%. Spectral Doppler is indicative of a normal filling pattern. Peak GLS is -21.7%, which is within normal limits. Right Ventricle Normal right ventricular cavity size and systolic function. Atria Both atria are normal in size. There is no evidence of interatrial shunt. Aortic Valve Normal aortic valve structure and function. There is no aortic valve stenosis. There is no aortic valve regurgitation. Mitral Valve Normal mitral valve structure and function. There is trace mitral valve regurgitation. There is no mitral valve stenosis. Pulmonic Valve The pulmonic valve is likely normal. There is no pulmonic valve regurgitation. Tricuspid Valve Normal tricuspid valve structure. There is trace tricuspid valve regurgitation. The right ventricular systolic pressure is normal. The right ventricular systolic pressure is 22 mmHg. Normal right atrial pressure. There is no evidence of pulmonary hypertension. Great Vessels All visible segments of the aorta are normal in size. The pulmonary artery was not well visualized. Venous The inferior vena cava is normal in size and collapses greater than 50% with inspiration. Pericardium/Pleural There is no evidence of pericardial effusion. Measurements 2D Linear Measurements IVSd: 0.72 0.6-0.9/0.6-1.0 cm LVIDd: 4.17 3.9-5.3/4.2-5.9 cm LVIDd Index: 2.04 2.4-3.2/2.2-3.1 cm/m2 LVIDs: 2.54 2.0-3.6 cm LVPWd: 0.93 0.7-1.1 cm LA Diam: 3.10 2.7-3.8/3.0-4.0 cm LAIDs Index: 1.52 1.5-2.3 cm/m2 LV Mass: 129.08 67-162/88-224 g LV Mass Index: 63.28 43-95/49-115 g/m2 LVOT Diam: 1.90 3.0+(-)1.3 cm 2D Systolic Function EF 4C: 65.80 >55% EF 2C: 69.10 >55% EF BiP: 68.40 >55% Mitral Valve MV Pk E: 0.89 MV PK A: 0.78 MV Decel Time: 287.00 E/A: 1.10 E'Lateral: 10.30 E'Medial: 9.25 E/E' Med: 9.60 E/E' Lat: 8.60 PHT: 84.00 MVA PHT: 2.62 Decel [place]: 3.09 Aortic Valve AoV Pk Brennen: 1.63 AoV Mn Brennen: 1.09 AoV VTI: 0.37 AoV Pk Grad: 11.00 Aov Mn Grad: 5.00 PEGGY Cont.VTI: 2.28 LVOT LVOT Pk Brennen: 1.37 LVOT Mn Brennen: 0.92 LVOT VTI: 0.30 LVOT Pk Grad: 8.00 LVOT Mn Grad: 4.00 LVOT Diam: 1.90 LVOT Area: 2.84 Diastolic Function MV Pk E: 0.89 MV Pk A: 0.78 E/A: 1.10 E'Medial: 9.25 E/E' Med: 9.60 E' Laterial: 10.30 E/E' Lat: 8.60 Right Ventricle TAPSE (mm): 25.60 TVS' Brennen: 12.20 Tricuspid Valve TR Pk Brennen: 2.19 TR Pk Grad: 19.00 RA Press: 3.00 RVSP: 22.00 Great Vessels Aorta Sinus of Valsalva: 2.90 2.0-3.5 cm Ao Asc: 3.30 2.1-3.4 cm Pulmonary Valve PV Pk Brennen: 1.29 Peak PV Grad: 7.00 Updated in Other Vendor System with Status of Final Abilio Gonzalez MD electronically signed on 06/14/2023 12:54:27 PM with status of Final
== END ==
LOC: HO.CARD 10:41
PROVIDERS: PCP Internal Medicine; Visit Provider Hospitalist
DX: I27.20 Pulmonary hypertension, unspecified (principal)
CPT/HCPCS: 93306; 93356

== ENCOUNTER → 2023-06-13 11:01 | Outpatient (BNV) | payer OTHER, SELFPAY | PROVIDERS: PCP Internal Medicine; Visit Provider Internal Medicine Cardiovascular Disease | DX: I36.1 Nonrheumatic tricuspid (valve) insufficiency (principal); I27.20 Pulmonary hypertension, unspecified | CPT/HCPCS: 93306; 93356 ==

== ENCOUNTER 2023-06-26 14:26 | Outpatient (REF) | payer OTHER, SELFPAY | END 2023-06-26 14:27 | disposition home or self-care (01) | LOC: HO.MAMMO 14:26 | PROVIDERS: PCP Internal Medicine; Visit Provider Internal Medicine | DX: Z13.89 Encounter for screening for other disorder (principal) ==

== ENCOUNTER 2023-06-28 12:28 | Outpatient (REF) | payer OTHER, SELFPAY ==
--- NOTE | ~2023-06-28 | MM_ITS ---
EXAMINATION: MM SCREENING DIGITAL BREAST TOMOSYNTHESIS, BILATERAL CLINICAL INFORMATION: Screening. Asymptomatic. COMPARISON: Mammography: This study is compared with prior exams dating back to 2019. TECHNIQUE: Digital breast tomosynthesis is performed in both the craniocaudal and mediolateral oblique views along with computer-aided detection (CAD). Synthesized 2D images are generated from the tomosynthesis. FINDINGS: There are scattered areas of fibroglandular density (ACR BI-RADS breast composition Category b). There are no significant masses, abnormal calcifications, or other abnormalities. There is a tissue marker present in the left breast from prior benign percutaneous biopsy. MM/MM tomosynthesis screening BI IMPRESSION: No mammographic evidence of malignancy. ASSESSMENT: BI-RADS BI-RADS 2 - Benign Findings RECOMMENDATION: Routine annual mammography screening. 1 year F/U This examination should not preclude the clinical evaluation of a suspicious palpable abnormality. This patient's information was entered into a reminder system with a target due date for their next mammogram.
== END 2023-06-28 12:29 | disposition home or self-care (01) ==
LOC: HO.MAMMO 12:28
PROVIDERS: PCP Internal Medicine; Visit Provider Internal Medicine
DX: Z12.31 Encounter for screening mammogram for malignant neoplasm of breast (principal)
CPT/HCPCS: 77063; 77067

== ENCOUNTER → 2023-06-28 12:30 | Outpatient (BNV) | payer OTHER, SELFPAY | PROVIDERS: PCP Internal Medicine; Visit Provider Radiology Diagnostic Radiology | DX: Z12.31 Encounter for screening mammogram for malignant neoplasm of breast (principal) | CPT/HCPCS: 77063; 77067 ==

== ENCOUNTER 2023-08-12 10:36 | Outpatient (AMB) | payer OTHER, SELFPAY ==
[2023-08-12 10:45] VITALS: PULSE 71; O2SAT 97; BMI 42.4
--- NOTE | 2023-08-12 10:45 | A.OFFVIS_ITS ---
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 She has been having worsening daytime drowsiness. Also complaining of headaches. In also with her cardiac history she did undergo a sleep study at the laboratory. It demonstrated that she did have [id number] obstructive sleep apnea. She also has significant desaturations down to 83%. She then underwent titration study recommended that she should start CPAP therapy. The CPAP therapy was affecting beneficial. Initially she started with a nasal mask but then switched over to a fullface mask that apparently work better. At this point we did go over the therapy for obstructive sleep apnea and with her cardiac history I did recommend she start CPAP therapy. She is agreeable to this and we will set her up with a local [employer] company. In the meantime she does complaint of nasal congestion also shortness of breath. She does have a history of asthma. She does have a rescue inhaler that she uses as needed. She has not had to use in the last week. Although she feels like she is getting more congested. 11/28/2021 the patient is here for a pulmonary follow-up visit. The patient overall has been doing relatively well. Although she is having increased daytime drowsiness. She start using the CPAP. She could not tolerated. She is also having issues with tachycardia and SVT. She will be followed up with a cane loader soon. Explained to her that this may be from untreated sleep apnea. The patient would like to hold off on the CPAP for now. Patient is no longer getting supplies likely based on the fact that she has been using it. If she does want to go back to using it she will have to probably get another sleep study to get reoccur intubated with a [employer] company. Once she wants to start using it she can always call the office so we can reset the machine to a pressure that she can not tolerate better. From a respiratory status the patient is doing relatively well. She is using her rescue inhaler on a regular basis usually on a daily basis. Therefore, at this point the patient will be started on maintenance inhaler with hopes that she does not require her rescue inhaler as often. The patient is agreeable to this. 05/28/2022 the patient is here for a pulmonary follow-up visit. The patient has been doing well from a respiratory status. Weight did send her prescription for Breo. She does not use it all the time. Explained to her that she should definitely use it routinely. She also has a rescue inhaler that she can use as needed. The patient is breathing well and denies any significant shortness of breath. Her main issue is her knee discomfort keeping her from being able to move exercise regularly. In addition to this the patient has not been using the CPAP. She rather not use it. She is waking up rested. Her [place] score is 7/24. She is going to continue to try positional therapy. Unfortunately though she has having hard time sleeping on her sides because she is having some left- sided discomfort in her flank. The patient was evaluated by her primary care doctor who ordered a renal ultrasound demonstrating either a cyst or a dilated pelvis of the kidney. I did give her the report and she needs to talk to her primary care doctor regarding the abnormal finding. It is a clear this was causing the discomfort but still should be looked that the since the patient continues to be symptomatic. 11/20/2022 the patient is here for a pulmonary follow-up visit. Overall she is doing well from a respiratory status. She is no longer using the Breo inhaler. She does use her rescue inhaler but typically less than 2 times a week. Does have dyspnea on exertion. Some component of deconditioning. in addition to this the patient has not been using CPAP. We did talk about the importance of positional therapy for sleep apnea. She does wake up rested. Her [place] score is around 7/24. She continues on her cardiac medications. Otherwise patient is without any other complaints. Will have her return in 6 months with a follow-up chest x-ray at that time. If the patient has any worsening symptoms prior to the next visit she is to call the office for an earlier assessment. 05/17/2023 the patient is here for a pulmonary follow-up visit. She still complains of dyspnea on exertion. Abcf-dr-[id number] severity. With minimal activity. She also complains of worsening lower extremity edema. She has been struggling with this for some time. She is already on diuretics. We did talk about dietary indiscretions. This continue low-sodium diet. 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 The patient also has not been using her CPAP and explained to her that can also resulting worsening lower extremity edema. In view of the worsening shortness of breath in the lower extremity edema will request a chest x-ray and also an echocardiogram. Will reassess her with an overnight oximetry as well. In the meantime she should try the compression stockings. Continue with current respiratory medications and follow-up after her studies. 08/12/2023 the patient is here for pulmonary follow-up visit. Overall the patient has been doing fairly well from a respiratory status. She still has lower extremity edema although better. She had difficulties with a compression socks because it caused some bruising. In addition to that she did have the echocardiogram which we personally reviewed. She has a normal cardiac function which is reassuring. Her overnight oximetry is also reassuring. The patient does not qualify for oxygen. She did have worsening cough several weeks ago. The patient was taken to urgent care where she was given prednisone which improve her cough significantly. She had been on Breo but she was taken off Breo since she was doing well. At this point she clinically sounds well without any wheezing. If she notices the cough restart she can start the Breo. She does have some persistent chest congestion. I did send her a tri-pack. FORMERLY [facility], [facility] Medical History Dyspnea Swelling of lower extremity Gross hematuria Onychomycosis Polyarthralgia Chronic back pain Migraine Hypovitaminosis D Paroxysmal atrial fibrillation Morbid obesity with BMI of 40.0-44.9, adult Sinusitis GERD (gastroesophageal reflux disease) Pure hypercholesterolemia Obesity JOHN on CPAP Asthma Surgical History Hx of colonoscopy History of pterygium excision History of total abdominal hysterectomy and bilateral salpingo-oophorectomy History of section History of appendectomy Family History Father CVD (cardiovascular disease) Mother Hypertension Brother Colon cancer Sister Colon cancer Thyroid cancer Sister Lupus Maternal Aunt Breast cancer Family/Other FH: mental illness Social History Housing: Apartment Alcohol intake: never Patient Tobacco Use Status: Never used Tobacco e-Cigarette/Vaping Use: Never Used Second Hand Smoke Exposure: No service: No Current occupational status: disabled Cognitive needs: No Hearing needs: No Vision needs: Yes Review of Systems Const Denies daytime sleepiness and Denies weakness ENT Denies dizziness Card Reports leg edema, Denies palpitations and Reports dyspnea on exertion Resp Reports cough, Reports dyspnea on exertion and Denies wheezing GI Denies hematochezia and Denies change in stool character Reports flank pain Musc Denies numbness Neuro Denies dizziness, Denies numbness and Denies weakness Endo Denies palpitations Aller/Immun Denies wheezing Physical Exam Vital Signs: Last Vital Signs Pulse 71 08/12/23 10:45 Pulse Ox 97 08/12/23 10:45 Oxygen Delivery Method Room Air 08/12/23 10:45 BMI result Body Mass Index 42.4 Const General: alert Neck Neck: Yes normal visual inspection, Yes full ROM and Yes no lymphadenopathy Chest Chest palpation & inspection: normal inspection of the chest Resp Effort & Inspection: normal respiratory effort Auscultation: diminished lung sounds Cardio Rate: regular rate Rhythm: regular rhythm Heart sounds: S1 normal heart sound present and S2 normal heart sound present GI Palpation (GI): Soft to palpation and nontender Auscultation: normal bowel sounds Skin General skin exam: rashes and/or lesions noted Extrem General: Yes edema Quality Reporting (2019) Adult ([facility] 138//) Smoking risk assessment performed?: Yes Patient Tobacco Use Status: Never used Tobacco Assessment & Plan Assessment & Plan (1) Dyspnea: Code(s): R06.00 - Dyspnea, unspecified Category: Medical Qualifiers: Dyspnea type: dyspnea on exertion Qualified Code(s): R06.09 - Other forms of dyspnea (2) Asthma: Code(s): J45.909 - Unspecified asthma, uncomplicated Category: Medical Qualifiers: Asthma complication type: uncomplicated Asthma persistence: persistent Asthma severity: moderate Qualified Code(s): J45.40 - Moderate persistent asthma, uncomplicated (3) GERD (gastroesophageal reflux disease): Code(s): K21.9 - Gastro-esophageal reflux disease without esophagitis Category: Medical Qualifiers: Esophagitis presence: esophagitis presence not specified Qualified Code(s): K21.9 - Gastro-esophageal reflux disease without esophagitis Plan start Zpack MATHEW as needed consider Breo if cough worsens positional therapy diuresis as tolerated compression stockings as tolerated F/U 6-8 months Medications: New azithromycin 500 mg PO DAILY 3 tabs 0RF 3 days Coding Level of Care Code Est Pt Level 4 (10971) Diagnoses Dyspnea on exertion R06.09 Dyspnea type: dyspnea on exertion Moderate persistent asthma without complication J45.40 Asthma complication type: uncomplicated Asthma persistence: persistent Asthma severity: moderate Gastroesophageal reflux disease, unspecified whether esophagitis present K21.9 Esophagitis presence: esophagitis presence not specified Time Spent (min) 17
== END 2023-08-12 11:05 | disposition home or self-care (01) ==
PROVIDERS: PCP Internal Medicine; Visit Provider Hospitalist
DX: R06.09 Other forms of dyspnea (principal); J45.40 Moderate persistent asthma, uncomplicated; K21.9 Gastro-esophageal reflux disease without esophagitis
CPT/HCPCS: 99214

== ENCOUNTER → 2023-08-12 10:36 | Outpatient (BNVA) | payer OTHER, SELFPAY | PROVIDERS: PCP Internal Medicine; Visit Provider Hospitalist | DX: J45.909 Unspecified asthma, uncomplicated (principal); R06.09 Other forms of dyspnea; K21.9 Gastro-esophageal reflux disease without esophagitis | CPT/HCPCS: 99212 ==

== ENCOUNTER 2023-08-27 13:07 | Outpatient (AMB) | payer OTHER, SELFPAY ==
[2023-08-27 13:14] VITALS: BP 120/72; BMI 43.7
--- NOTE | 2023-08-27 13:14 | MHC.PC.OV ---
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: No Accompanied by: Self / Same As Patient Allergies naproxen Allergy (Severe, Verified 08/27/23 13:27) muscle aches sertraline Allergy (Severe, Verified 08/27/23 13:27) muscle aches amoxicillin [From Augmentin] Allergy (Mild, Verified 08/27/23 13:27) Unknown clavulanic acid [From Augmentin] Allergy (Mild, Verified 08/27/23 13:27) Unknown Medication List - Last Reconciled 08/27/23 by Simran Thompson MD albuterol sulfate 90 mcg/actuation 2 inhalations inhalation Q6H PRN aspirin 81 mg PO DAILY azithromycin 500 mg PO DAILY 3 days bisacodyl (Dulcolax (bisacodyl)) 20 mg (4 x 5 mg) PO ONCE 1 day carvedilol 6.25 mg PO BID 90 days cholecalciferol (vitamin D3) (Vitamin D3) 25 mcg PO DAILY compress.stocking,knee,reg,med 15-20 cm diclofenac sodium 1% (Aleve (diclofenac)) 2 grams topical QID PRN furosemide 20 mg PO DAILY 90 days gabapentin 300 mg PO BEDTIME montelukast 10 mg PO DAILY nebulizers As directed pantoprazole 40 mg PO DAILY polyethylene glycol 3350 (Miralax) 238 grams PO ONCE prednisone 20 mg PO BID Shower Chair As directed triamcinolone acetonide 0.5% 1 appl topical BID PRN 30 days Tobacco use date assessed: 04/02/23 Fall risk assessment: No Falls in past year Last assessed Fall Risk: 08/27/23 Dental Screening Dental Screen Date: 04/02/23 HPI HPI Comments History of Present Illness Details This is a 63-year-old female with paroxysmal atrial fibrillation and morbid obesity that comes accompanied by granddaughter for her physical exam. Atrial fibrillation has been stable with medications and this is follow by cardiology. She is morbidly obese with a BMI of 43.7 and declines weight loss surgery. Mammogram done 2023 was normal. No need for Pap smear due to hysterectomy. Last colonoscopy was 2014 and was going to have a colonoscopy this year but had vomiting that day and was canceled. Gastroenterology will call her to schedule another colonoscopy. No chest pain or shortness on breath. [facility] Medical History Dyspnea Swelling of lower extremity Gross hematuria Onychomycosis Polyarthralgia Chronic back pain Migraine Hypovitaminosis D Paroxysmal atrial fibrillation Morbid obesity with BMI of 40.0-44.9, adult Sinusitis GERD (gastroesophageal reflux disease) Pure hypercholesterolemia Obesity JOHN on CPAP Asthma Surgical History Hx of colonoscopy History of pterygium excision History of total abdominal hysterectomy and bilateral salpingo-oophorectomy History of section History of appendectomy Family History Father CVD (cardiovascular disease) Mother Hypertension Brother Colon cancer Sister Colon cancer Thyroid cancer Sister Lupus Maternal Aunt Breast cancer Family/Other FH: mental illness Social History Housing: Apartment Alcohol intake: never Patient Tobacco Use Status: Never used Tobacco e-Cigarette/Vaping Use: Never Used Second Hand Smoke Exposure: No service: No Current occupational status: disabled Cognitive needs: No Hearing needs: No Vision needs: Yes Questionnaire Thrive Questionnaire Date Thrive assessed: 04/02/23 LI-7 AMB Questionnaire LI-7 Date LI - 7 assessed: 04/02/23 Source: Developed by Drs. Yann Frausto, Kelly Johnson, Ellis Berumen and colleagues, with an educational lisette from [employer]. Review of Systems Const All systems reviewed & are unremarkable except as noted in HPI and below Card Denies chest pain at rest, Denies chest pain with activity, Denies edema, Denies irregular heart rhythm, Denies claudication, Denies dyspnea, Denies dyspnea on exertion, Denies orthopnea, Denies paroxysmal nocturnal dyspnea and Denies slow heart rate Resp Denies cough, Denies dyspnea and Denies dyspnea on exertion GI Denies abdominal pain, Denies change in bowel habits, Denies excessive flatus, Denies nausea and Denies vomiting Denies urinary incontinence, Denies urinary hesitancy and Denies urinary urgency Physical exam (Primary Care) Vital Signs: Last Vital Signs BP 120/72 08/27/23 13:14 BMI result Body Mass Index 43.7 Tobacco/Smoking Status: Tobacco use Status Tobacco use date assessed 04/02/23 08/27/23 13:20 Patient Tobacco Use Status Never used Tobacco 08/27/23 13:20 e-Cigarette/Vaping Use Never Used 08/27/23 13:20 Thrive Assessment: Date of Thrive Assessment Date Thrive assessed 04/02/23 08/27/23 13:20 Const Orientation/consciousness: patient oriented x3 HENMT Head: Yes normal to inspection, Yes normocephalic and Yes atraumatic Ears: external ears normal Eyes General: appearance normal, both eyes and all related structures Eyelids: Yes eyelids normal Conjunctivae: conjunctivae normal Neck Neck: Yes normal visual inspection and Yes supple Resp Effort & Inspection: normal respiratory effort Auscultation: clear to auscultation bilaterally Cardio Jugular venous distension: no JVD Rate: regular rate Rhythm: regular rhythm Heart sounds: S1 normal heart sound present and S2 normal heart sound present GI Inspection: Yes normal to inspection Palpation (GI): Soft to palpation and nontender Auscultation: normal bowel sounds Skin General skin exam: no rashes or lesions noted Neuro General: patient oriented x3 and no focal motor deficits Extrem General: Yes full ROM Psych Appearance: grossly normal Assessment and Plan Assessment & Plan (1) Physical exam: Code(s): Z00.00 - Encounter for general adult medical examination without abnormal findings Plan: Repeat in a year. (2) Morbid obesity with BMI of 40.0-44.9, adult: Code(s): E66.01 - Morbid (severe) obesity due to excess calories; Z68.41 - Body mass index [BMI] 40.0-44.9, adult Plan: Start diet and exercise. BMI goal is less than 30. (3) Paroxysmal atrial fibrillation: Code(s): I48.0 - Paroxysmal atrial fibrillation Plan: Follow-up with cardiology. Orders: Orders Vitamin D 25-OH Total Today E55.9 - Vitamin D deficiency, unspecified Comprehensive [place]. Panel Fast Today Z00.00 - Encounter for general adult medical examination without abnormal findings Lipid Panel Today E78.5 - Hyperlipidemia, unspecified, Z00.00 - Encounter for general adult medical examination without abnormal findings Referrals Gastroenterology Referral K21.9 - Gastro-esophageal reflux disease without esophagitis Coding Level of Care Code Est Pt Prev Care >65y(04875) Diagnoses Physical exam Z00.00 Morbid obesity with BMI of 40.0-44.9, adult E66.01; Z68.41 Paroxysmal atrial fibrillation I48.0 Time Spent (min) 31
== END 2023-08-27 13:47 | disposition home or self-care (01) ==
PROVIDERS: PCP Internal Medicine; Visit Provider Internal Medicine
DX: Z00.00 Encounter for general adult medical examination without abnormal findings (principal); E66.01 Morbid (severe) obesity due to excess calories; Z68.41 Body mass index [BMI] 40.0-44.9, adult; I48.0 Paroxysmal atrial fibrillation
CPT/HCPCS: 99397

== ENCOUNTER 2023-09-26 09:49 | Outpatient (AMB) | payer OTHER, SELFPAY ==
[2023-09-26 09:52] VITALS: BP 104/72; PULSE 89; BMI 43.8
--- NOTE | 2023-09-26 09:52 | A.OFFVIS_ITS ---
Vital Signs 09/26/23 09:52 Height 5 ft 2 in Weight 239 lb 6.752 oz BMI 43.8 BP 104/72 Blood Pressure Location Lt brachial Position Sitting Pulse 89 Pulse Source Pulse Oximeter Intake Visit Reasons: f/up Cloth Printing Inspector Required: Yes Cloth Printing Inspector Language: Drug Enforcement Agent Name: amish lima [id number] Allergies naproxen Allergy (Severe, Verified 09/26/23 09:55) muscle aches sertraline Allergy (Severe, Verified 09/26/23 09:55) muscle aches amoxicillin [From Augmentin] Allergy (Mild, Verified 09/26/23 09:55) Unknown clavulanic acid [From Augmentin] Allergy (Mild, Verified 09/26/23 09:55) Unknown Medication List - Last Reconciled 09/26/23 by RAO Blanton albuterol sulfate 90 mcg/actuation 2 inhalations inhalation Q6H PRN aspirin 81 mg PO DAILY bisacodyl (Dulcolax (bisacodyl)) 20 mg (4 x 5 mg) PO ONCE 1 day carvedilol 6.25 mg PO BID 90 days cholecalciferol (vitamin D3) (Vitamin D3) 25 mcg PO DAILY compress.stocking,knee,reg,med 15-20 cm diclofenac sodium 1% (Aleve (diclofenac)) 2 grams topical QID PRN furosemide 20 mg PO DAILY 90 days gabapentin 300 mg PO BEDTIME montelukast 10 mg PO DAILY nebulizers As directed pantoprazole 40 mg PO DAILY polyethylene glycol 3350 (Miralax) 238 grams PO ONCE Shower Chair As directed triamcinolone acetonide 0.5% 1 appl topical BID PRN 30 days HPI HPI f/up: Details: Sarah is a 63-year-old female with past medical history of hyperlipidemia, morbid obesity, obstructive sleep apnea with CPAP use, paroxysmal atrial fibrillation who presents for follow-up. Today she reports that she will still notice heart brief palpitations at times. She says it feels like her chest is agitated. The episodes can last seconds and up to 1 minute. No sustained prolonged palpitations noted. At times she will feel a stab in her chest that makes her take a deep breath. No other chest discomfort at rest or with activity. No concerning shortness of breath, lightheadedness, presyncope, syncope, falls. No PND, orthopnea or edema. Does light physical activities. She describes having about 7 nosebleeds since her last visit in June. She reports that she will notice of pressure in her forehead then have bleeding out her right nostril. She reports having clots. She manages the bleeding herself and has not required ER evaluation. She continues to take daily aspirin. She states she was not called by the ENT office for an appointment. Takes meds as directed. She also follows with Urology and they tell her she has blood in her urine on the tests. She has never seen pink or red urine. No known ulcers or GI issues. [facility] Medical History Dyspnea Swelling of lower extremity Gross hematuria Onychomycosis Polyarthralgia Chronic back pain Migraine Hypovitaminosis D Paroxysmal atrial fibrillation Morbid obesity with BMI of 40.0-44.9, adult Sinusitis GERD (gastroesophageal reflux disease) Pure hypercholesterolemia Obesity JOHN on CPAP Asthma Surgical History Hx of colonoscopy History of pterygium excision History of total abdominal hysterectomy and bilateral salpingo-oophorectomy History of section History of appendectomy Family History Father CVD (cardiovascular disease) Mother Hypertension Brother Colon cancer Sister Colon cancer Thyroid cancer Sister Lupus Maternal Aunt Breast cancer Family/Other FH: mental illness Social History Housing: Apartment Alcohol intake: never Patient Tobacco Use Status: Never used Tobacco e-Cigarette/Vaping Use: Never Used Second Hand Smoke Exposure: No service: No Current occupational status: disabled Cognitive needs: No Hearing needs: No Vision needs: Yes Review of Systems Const All systems reviewed & are unremarkable except as noted in HPI and below ENT Denies dizziness and Reports epistaxis Card Reports chest pain (Stabs in chest area at times that make her take a deep breath), Denies chest pain at rest, Denies chest pain with activity, Denies rapid heart rate, Denies pedal edema, Denies edema, Denies leg edema, Denies lightheadedness, Denies palpitations, Denies dyspnea, Denies dyspnea on exertion and Denies orthopnea Resp Denies cough, Denies dyspnea and Denies dyspnea on exertion GI Denies hematochezia and Denies change in stool character Musc Reports abnormal gait (Uses cane), Denies limited range of motion, Denies muscle cramps, Denies muscle weakness, Denies numbness, Denies radiating pain into limb, Denies stiffness and Denies tingling Neuro Reports abnormal gait (Uses cane), Denies dizziness, Denies numbness and Denies tingling Endo Denies palpitations Physical Exam Vital Signs: Last Vital Signs Pulse 89 09/26/23 09:52 BP 104/72 09/26/23 09:52 BMI result Body Mass Index 43.8 Const Other: Morbidly obese General: cooperative, healthy appearing, comfortable and no acute distress Orientation/consciousness: patient oriented x3 Neck Neck: Yes normal visual inspection and Yes no JVD Resp Effort & Inspection: normal respiratory effort Auscultation: clear to auscultation bilaterally, no crackles, no rales, no rhonchi and no wheezes Cardio Jugular venous distension: no JVD Rate: regular rate Rhythm: regular rhythm Heart sounds: S1 normal heart sound present, S2 normal heart sound present, no murmurs and no rubs Neuro General: patient oriented x3 Extrem General: Yes normal to inspection, No no pedal edema and No calf tenderness Psych Appearance: grossly normal Mental Status: mental status grossly normal Speech and movement: Normal speech and movement present Quality Reporting (2019) Adult ([facility] 138/05/02/68) Smoking risk assessment performed?: Yes Patient Tobacco Use Status: Never used Tobacco Assessment & Plan Assessment & Plan (1) Paroxysmal atrial fibrillation: Code(s): I48.0 - Paroxysmal atrial fibrillation Category: Medical Plan: History of paroxysmal atrial fibrillation. EKG done last visit showing normal sinus rhythm, rate 66. She is on carvedilol for heart rate control. She takes aspirin daily. She is not on anticoagulation as of yet. She is now 63 years old, CHADS-VASc score of 2 (age and female). Anticoagulation is recommended. She tells me she has epistaxis 1 to 2 times a month which has occurred for a long time . Since last visit in June she believe she has had about 7 episodes. Also has had microscopic blood in urine, No gross hematuria. Prior to start of anticoagulation plan was to have her see ENT. Referral placed in June and patient telling me today that she has not been called by the office for an appointment as of yet. At this time will again put an ENT evaluation in, urgent as anticoagulation needs to be started as soon as possible to reduce her risk of stroke with PAF. Explained this to her and she states understanding. Stroke risk remains elevated while she is off anticoagulation. Signs and symptoms of stroke reviewed with her, emergency care if ever needed. She is agreeable to this plan. She can continue on aspirin at this time. Informed her that aspirin does not give her the stroke reduction protection needed. Cardiology follow-up in 3 months, sooner if needed (2) JOHN on CPAP: Code(s): G47.33 - Obstructive sleep apnea (adult) (pediatric); Z99.89 - Dependence on other enabling machines and devices Category: Medical Plan: Compliant (3) Epistaxis: Code(s): R04.0 - Epistaxis Category: Medical Plan: As above (4) Morbid obesity with BMI of 40.0-44.9, adult: Code(s): E66.01 - Morbid (severe) obesity due to excess calories; Z68.41 - Body mass index [BMI] 40.0-44.9, adult Category: Medical Plan: Benefit of weight reduction reviewed with her. Consider referral to bariatric program. Plan Time spent on chart review, documentation, interview and assessment Orders: Referrals Ear/Nose/Throat Referral I48.0 - Paroxysmal atrial fibrillation, R04.0 - Epistaxis Coding Level of Care Code Est Pt Level 4 (50779) Diagnoses Paroxysmal atrial fibrillation I48.0 JOHN on CPAP G47.33; Z99.89 Epistaxis R04.0 Morbid obesity with BMI of 40.0-44.9, adult E66.01; Z68.41 Time Spent (min) 28
== END 2023-09-26 10:35 | disposition home or self-care (01) ==
PROVIDERS: PCP Internal Medicine; Visit Provider Nurse Practitioner Family
DX: I48.0 Paroxysmal atrial fibrillation (principal); E66.01 Morbid (severe) obesity due to excess calories; Z68.41 Body mass index [BMI] 40.0-44.9, adult; R04.0 Epistaxis; G47.33 Obstructive sleep apnea (adult) (pediatric); Z99.89 Dependence on other enabling machines and devices
CPT/HCPCS: 99214

== ENCOUNTER → 2023-09-26 09:49 | Outpatient (BNVA) | payer OTHER, SELFPAY | PROVIDERS: PCP Internal Medicine; Visit Provider Nurse Practitioner Family | DX: I48.0 Paroxysmal atrial fibrillation (principal); R04.0 Epistaxis; G47.33 Obstructive sleep apnea (adult) (pediatric); E66.01 Morbid (severe) obesity due to excess calories; Z99.89 Dependence on other enabling machines and devices; Z68.41 Body mass index [BMI] 40.0-44.9, adult | CPT/HCPCS: 99212 ==

== ENCOUNTER 2023-11-01 11:49 | Outpatient (AMB) | payer OTHER, SELFPAY ==
[2023-11-01 11:51] VITALS: BMI 43.7
--- NOTE | 2023-11-01 11:51 | MHC.OFFVIS ---
Vital Signs 11/01/23 11:51 Height 5 ft 2 in Weight 239 lb BMI 43.7 Intake Visit Reasons: OV- bilateral knee pain Intake Note: Sarah is a 63 year old female who presents today for a follow up of her bilateral knee OA, both of her knees were last injected on 05/16/23. Patient stated the last injections were helpful and she'd like both knees injected today. Allergies naproxen Allergy (Severe, Verified 11/01/23 11:52) muscle aches sertraline Allergy (Severe, Verified 11/01/23 11:52) muscle aches amoxicillin [From Augmentin] Allergy (Mild, Verified 11/01/23 11:52) Unknown clavulanic acid [From Augmentin] Allergy (Mild, Verified 11/01/23 11:52) Unknown HPI HPI OV- bilateral knee pain: Details: Sarah is a 63 year old female who presents today for a follow up of her bilateral knee OA, both of her knees were last injected on 05/16/23. Patient stated the last injections were helpful and she'd like both knees injected today. [facility] Medical History Dyspnea Swelling of lower extremity Gross hematuria Onychomycosis Polyarthralgia Chronic back pain Migraine Hypovitaminosis D Paroxysmal atrial fibrillation Morbid obesity with BMI of 40.0-44.9, adult Sinusitis GERD (gastroesophageal reflux disease) Pure hypercholesterolemia Obesity JOHN on CPAP Asthma Surgical History Hx of colonoscopy History of pterygium excision History of total abdominal hysterectomy and bilateral salpingo-oophorectomy History of section History of appendectomy Family History Father CVD (cardiovascular disease) Mother Hypertension Brother Colon cancer Sister Colon cancer Thyroid cancer Sister Lupus Maternal Aunt Breast cancer Family/Other FH: mental illness Social History Housing: Apartment Alcohol intake: never Patient Tobacco Use Status: Never used Tobacco e-Cigarette/Vaping Use: Never Used Second Hand Smoke Exposure: No service: No Current occupational status: disabled Cognitive needs: No Hearing needs: No Vision needs: Yes Physical Exam Vital Signs: BMI result Body Mass Index 43.7 Const General: cooperative, healthy appearing, no acute distress, well developed and alert HEENT Head: Yes normal to inspection, Yes normocephalic and Yes atraumatic Mouth: moist mucous membranes Eyes General: appearance normal, both eyes and all related structures EOM: EOMs intact bilaterally Chest Other: no audible wheezing. Resp Other: No audible wheezing Effort & Inspection: normal respiratory effort Cardio Other: Radial pulse palpable with no rythmic abnormalities Back/Spine/Pelvis Cervical Spine: normal cervical lordosis Skin General skin exam: no rashes or lesions noted Neuro General: no focal motor deficits Extrem Other: Abundant soft tissues about the legs but varus alignment left greater than right and tenderness palpation medial compartment with mild bilateral joint effusions. Positive gait antalgia. 5-120 degrees of motion bilaterally Psych Appearance: grossly normal and well kempt Mental Status: mental status grossly normal Speech and movement: Normal speech and movement present Affect: normal affect Attitude: cooperative Office Procedures Joint Injection/Aspiration Joint Injection/Aspiration Details: Injected 1 mL of Decadron and 3 mL 1% lidocaine and 3 mL of 0.25% Marcaine. Site was prepped using aseptic technique. Patient tolerated the procedure well. Primary Site: right knee Secondary Site: left knee Approach Used: anterolateral Coding - Large joint - Glenohumeral/Tronchanteric Bursa/Intraarticular Procedure code (CPT) selection complete Quality Reporting (2019) Adult ([facility] 13805/02/68) Smoking risk assessment performed?: Yes Patient Tobacco Use Status: Never used Tobacco Assessment & Plan Assessment & Plan (1) Osteoarthritis of both knees: Code(s): M17.0 - Bilateral primary osteoarthritis of knee Category: Medical Qualifiers: Osteoarthritis type: other secondary Qualified Code(s): M17.4 - Other bilateral secondary osteoarthritis of knee Plan: I injected both knees. She may follow up in 3-6 months depending on symptoms. Coding Level of Care Code Est Pt Level 3 (66117) Diagnoses Other secondary osteoarthritis of both knees M17.4 Osteoarthritis type: other secondary CPT Codes Coding - Large joint: 73784 - Large joint ([id number]) Coding - Joint 7: 32243 - Glenohumeral/Tronchanteric Bursa/Intraarticular ([id number])
== END 2023-11-01 12:19 | disposition home or self-care (01) ==
PROVIDERS: PCP Internal Medicine; Visit Provider Orthopaedic Surgery
DX: M17.4 Other bilateral secondary osteoarthritis of knee (principal)
CPT/HCPCS: 20610

== ENCOUNTER → 2023-11-01 11:49 | Outpatient (BNVA) | payer OTHER, SELFPAY | PROVIDERS: PCP Internal Medicine; Visit Provider Orthopaedic Surgery | DX: M17.0 Bilateral primary osteoarthritis of knee (principal) | CPT/HCPCS: 20610; J0665; J1100 ==

== ENCOUNTER 2023-12-09 09:40 | Outpatient (AMB) | payer OTHER, SELFPAY ==
--- NOTE | 2023-12-09 09:52 | MHC.OFFVIS ---
Vital Signs 12/09/23 09:53 Height 5 ft 2 in Weight 246 lb 0.574 oz BMI 45.0 BP 114/60 Blood Pressure Location Lt brachial Position Sitting Pulse 80 Pulse Source Pulse Oximeter Intake Visit Reasons: 3m follow up Vinyl Installer Required: Yes Vinyl Installer Language: Director [employer] Name: amish lund [id number] Allergies naproxen Allergy (Severe, Verified 12/09/23 09:55) muscle aches sertraline Allergy (Severe, Verified 12/09/23 09:55) muscle aches amoxicillin [From Augmentin] Allergy (Mild, Verified 12/09/23 09:55) Unknown clavulanic acid [From Augmentin] Allergy (Mild, Verified 12/09/23 09:55) Unknown Medication List - Last Reconciled 12/09/23 by RAO Blanton albuterol sulfate 90 mcg/actuation 2 inhalations inhalation Q6H PRN aspirin 81 mg PO DAILY bisacodyl (Dulcolax (bisacodyl)) 20 mg (4 x 5 mg) PO ONCE 1 day carvedilol 6.25 mg PO BID 90 days cholecalciferol (vitamin D3) (Vitamin D3) 25 mcg PO DAILY compress.stocking,knee,reg,med 15-20 cm diclofenac sodium 1% (Aleve (diclofenac)) 2 grams topical QID PRN furosemide 20 mg PO DAILY 90 days gabapentin 300 mg PO BEDTIME montelukast 10 mg PO DAILY nebulizers As directed pantoprazole 40 mg PO DAILY polyethylene glycol 3350 (Miralax) 238 grams PO ONCE Shower Chair As directed triamcinolone acetonide 0.5% 1 appl topical BID PRN 30 days HPI HPI 3m follow up: Details: Sarah is a 63-year-old female past medical history of hyperlipidemia, sleep apnea with CPAP use, paroxysmal atrial fibrillation, epistaxis who presents for follow-up. Today she reports that since her last visit she was able to see the ENT doctor. She said they checked out her nose and no major issues identified. She says they told her if she has recurrent bleeding to go to the emergency room. She has not had epistaxis in recent months. She has been tolerating daily aspirin. No chest discomfort at rest or with activity. She will feel brief heart palpitations lasting a few seconds and resolving. She has had no sustained rapid or irregular rates. No concerning shortness of breath, PND, orthopnea. She does feel that her lower legs are getting swollen. She ambulates slowly with a cane. Takes all meds as directed. Certified per diem interpreter used. [facility] Medical History Dyspnea Swelling of lower extremity Gross hematuria Onychomycosis Polyarthralgia Chronic back pain Migraine Hypovitaminosis D Paroxysmal atrial fibrillation Morbid obesity with BMI of 40.0-44.9, adult Sinusitis GERD (gastroesophageal reflux disease) Pure hypercholesterolemia Obesity JOHN on CPAP Asthma Surgical History Hx of colonoscopy History of pterygium excision History of total abdominal hysterectomy and bilateral salpingo-oophorectomy History of section History of appendectomy Family History Father CVD (cardiovascular disease) Mother Hypertension Brother Colon cancer Sister Colon cancer Thyroid cancer Sister Lupus Maternal Aunt Breast cancer Family/Other FH: mental illness Social History Housing: Apartment Alcohol intake: never Patient Tobacco Use Status: Never used Tobacco e-Cigarette/Vaping Use: Never Used Second Hand Smoke Exposure: No service: No Current occupational status: disabled Cognitive needs: No Hearing needs: No Vision needs: Yes Review of Systems Const All systems reviewed & are unremarkable except as noted in HPI and below ENT Denies dizziness Card Denies chest pain, Denies chest pain at rest, Denies chest pain with activity, Reports rapid heart rate, Denies pedal edema, Denies edema, Denies leg edema, Denies lightheadedness, Denies palpitations, Denies dyspnea, Denies dyspnea on exertion and Denies orthopnea Resp Denies cough, Denies dyspnea and Denies dyspnea on exertion GI Denies hematochezia and Denies change in stool character Musc Details: ambulates slowly with cane Reports abnormal gait, Denies limited range of motion, Denies muscle cramps, Denies muscle weakness, Denies numbness, Denies radiating pain into limb, Denies stiffness and Denies tingling Neuro Reports abnormal gait, Denies dizziness, Denies numbness and Denies tingling Endo Denies palpitations Physical Exam Vital Signs: Last Vital Signs Pulse 80 12/09/23 09:53 BP 114/60 12/09/23 09:53 BMI result Body Mass Index 45.0 Const Other: morbidly obese General: cooperative, healthy appearing, comfortable and no acute distress Orientation/consciousness: patient oriented x3 Neck Neck: Yes normal visual inspection Chest Chest palpation & inspection: normal inspection of the chest Resp Effort & Inspection: normal respiratory effort Auscultation: clear to auscultation bilaterally, no rales, no rhonchi and no wheezes Cardio Rate: regular rate Rhythm: regular rhythm Heart sounds: S1 normal heart sound present, S2 normal heart sound present, no murmurs and no rubs Skin General skin exam: no rashes or lesions noted Neuro General: patient oriented x3 Extrem Other: obese, soft, puffy General: Yes normal to inspection Psych Appearance: grossly normal Mental Status: mental status grossly normal Speech and movement: Normal speech and movement present Quality Reporting (2019) Adult ([facility] 138/05/02/68) Smoking risk assessment performed?: Yes Patient Tobacco Use Status: Never used Tobacco Assessment & Plan Assessment & Plan (1) Paroxysmal atrial fibrillation: Code(s): I48.0 - Paroxysmal atrial fibrillation Category: Medical Plan: History of paroxysmal atrial fibrillation. She is on carvedilol for heart rate control. She takes aspirin daily. She has not started on anticoagulation as of yet. On last visit she reported recurrent episodes of epistaxis and she was referred to ENT. Will work on trying to obtain their note. She now states she has not had recent bleeding in the last few months. She is now 63 years old, CHADS-VASc score of 2 (age and female). Anticoagulation is recommended. Discussed anticoagulation use with her. Will send her for labs today. Once labs reviewed will send order for Eliquis. Signs and symptoms of stroke reviewed with her. Emergency care if ever needed for bleeding issues or concern of stroke. Will have her stop aspirin when she starts anticoagulation. Pulse is very regular on exam today. Continue carvedilol with no change. Cardiology follow-up in 3-4 months, sooner if needed (2) JOHN on CPAP: Code(s): G47.33 - Obstructive sleep apnea (adult) (pediatric); Z99.89 - Dependence on other enabling machines and devices Category: Medical Plan: Compliant (3) Epistaxis: Code(s): R04.0 - Epistaxis Category: Medical Plan: As above (4) Morbid obesity with BMI of 40.0-44.9, adult: Code(s): E66.01 - Morbid (severe) obesity due to excess calories; Z68.41 - Body mass index [BMI] 40.0-44.9, adult Category: Medical Plan: Benefit of weight reduction reviewed with her. Consider referral to bariatric program. Plan Time spent on chart review, documentation, interview and assessment Orders: Orders Complete Blood Count Auto Diff Today I48.0 - Paroxysmal atrial fibrillation Comprehensive [place]. Panel Fast Today Z00.00 - Encounter for general adult medical examination without abnormal findings Lipid Panel Today E78.5 - Hyperlipidemia, unspecified, Z00.00 - Encounter for general adult medical examination without abnormal findings Coding Level of Care Code Est Pt Level 4 (06692) Diagnoses Paroxysmal atrial fibrillation I48.0 JOHN on CPAP G47.33; Z99.89 Epistaxis R04.0 Morbid obesity with BMI of 40.0-44.9, adult E66.01; Z68.41 Time Spent (min) 30
[2023-12-09 09:53] VITALS: BP 114/60; PULSE 80; BMI 45.0
== END 2023-12-09 10:46 | disposition home or self-care (01) ==
PROVIDERS: PCP Internal Medicine; Visit Provider Nurse Practitioner Family
DX: I48.0 Paroxysmal atrial fibrillation (principal); G47.33 Obstructive sleep apnea (adult) (pediatric); Z99.89 Dependence on other enabling machines and devices; R04.0 Epistaxis; E66.01 Morbid (severe) obesity due to excess calories; Z68.41 Body mass index [BMI] 40.0-44.9, adult
CPT/HCPCS: 99214

== ENCOUNTER → 2023-12-09 09:40 | Outpatient (BNVA) | payer OTHER, SELFPAY | PROVIDERS: PCP Internal Medicine; Visit Provider Nurse Practitioner Family | DX: I48.0 Paroxysmal atrial fibrillation (principal); R04.0 Epistaxis; E66.01 Morbid (severe) obesity due to excess calories; E78.5 Hyperlipidemia, unspecified; G47.33 Obstructive sleep apnea (adult) (pediatric); R00.2 Palpitations; Z68.41 Body mass index [BMI] 40.0-44.9, adult; Z99.89 Dependence on other enabling machines and devices | CPT/HCPCS: 99212 ==

== ENCOUNTER 2023-12-11 09:50 | Outpatient (REF) | payer OTHER, SELFPAY ==
[2023-12-11 10:05] LABS: MANUAL DIFF FLAG NO
[2023-12-11 10:30] LABS: Basophils Absolute Auto 0.1 X10*3/uL (0.0-0.2); Basophils Percent Auto 0.9 % (0-2); Eosinophils Absolute Auto 0.1 X10*3/uL (0.0-0.4); Eosinophils Percent Auto 1.1 % (0-4); Hemoglobin 11.9 g/dl (12.0-16.0); Imm Gran Abs Auto 0.02 X10*3/uL (0.00-0.03); Imm Gran Pct Auto 0.4 % (0.0-0.4); Lymphocytes Percent Auto 36.6 % (20-40); Mean Corpuscular HGB Conc 33.1 g/dl (31.0-35.0); Mean Corpuscular Hemoglobin 29.2 pg (27.0-33.0); Mean Corpuscular Volume 88.5 fL (80.0-98.0); Mean Platelet Volume 10.4 fL (9.4-12.3); Monocytes Absolute Auto 0.5 X10*3/uL (0.1-1.2); Monocytes Percent Auto 9.6 % (2-11); Neutrophils Absolute Auto 2.8 x10*3/uL (2.0-8.3); Neutrophils Percent Auto 51.4 % (45-73); Platelet Count 312 X10*3/uL (160-400); Red Blood Count 4.07 X10*6/uL (4.20-5.50); Red Cell Distribution Width 13.9 % (11.0-16.0); White Blood Count 5.4 X10*3/uL (4.8-10.8)
[2023-12-11 10:48] LABS: Alanine Aminotransferase 11 U/L (0-31); Albumin Level 3.8 g/dL (3.5-5.0); Alkaline Phosphatase 92 U/L (39-117); Anion Gap 13 (12-20); Aspartate Amino Transferase 18 U/L (5-31); Bilirubin Total 0.5 mg/dL (0.0-1.0); Blood Urea Nitrogen 24 mg/dL (9-16); Calcium 9.1 mg/dL (8.4-10.2); Carbon Dioxide 25 mmol/L (22-29); Chloride 108 mmol/L (96-108); Cholesterol 207 mg/dL (<200); Estimated Glomerular Filt Rate > 60; Glucose Fasting 91 mg/dL (60-99); HDL Cholesterol 49 mg/dL (>40); LDL Cholesterol Calculated 140 mg/dL (<100); Potassium 3.9 mmol/L (3.3-5.1); Sodium 142 mmol/L (135-145); Total Protein 7.4 g/dL (6.5-8.0); Triglycerides 94 mg/dL (<150)
== END 2023-12-11 09:51 | disposition home or self-care (01) ==
LOC: HO.LAB 09:50
PROVIDERS: PCP Internal Medicine; Visit Provider Nurse Practitioner Family
DX: Z00.00 Encounter for general adult medical examination without abnormal findings (principal); I48.0 Paroxysmal atrial fibrillation; E78.5 Hyperlipidemia, unspecified
CPT/HCPCS: 36415; 80053; 80061; 85025

== ENCOUNTER 2023-12-17 10:30 | Outpatient (AMB) | payer OTHER, SELFPAY ==
[2023-12-17 10:33] VITALS: BP 108/68; PULSE 76; O2SAT 97; BMI 45.2
--- NOTE | 2023-12-17 10:33 | MHC.OFFVIS ---
Vital Signs 12/17/23 10:33 Height 5 ft 2 in Weight 247 lb 5.738 oz BMI 45.2 BP 108/68 Blood Pressure Location Rt brachial Position Sitting Pulse 76 Pulse Source Pulse Oximeter Pulse Oximetry (%) 97 Oxygen Delivery Method Room Air Intake Visit Reasons: Management of GERD Intake Note: Iris presents in office today for a scheduled FUV to re-establish care. CC; Pt last seen in 2022. Pt reports that they have been experiencing worsening reflux sx; however, over the course of the last 2 mos, it has been slightly better. Pt reports that they would also experience intermittent constipation, denies diarrhea. Pt reports having a BM a few times per day (~3). Pt denies any N/V. Pt reports that she has still been taking the pantoprazole throughout the last few months; however, pt has been having mixed results with the medication. Pt has also been avoiding trigger foods which they have found more helpful they believe. Pt has also stopped eating late at night. Day Care Attendant Required: Yes Day Care Attendant Services: Day Care Attendant Present Day Care Attendant Name: Vicky [id number] Information Interpreted: non-clinical & clinical Accompanied by: Self / Same As Patient Allergies naproxen Allergy (Severe, Verified 12/17/23 10:34) muscle aches sertraline Allergy (Severe, Verified 12/17/23 10:34) muscle aches amoxicillin [From Augmentin] Allergy (Mild, Verified 12/17/23 10:34) Unknown clavulanic acid [From Augmentin] Allergy (Mild, Verified 12/17/23 10:34) Unknown HPI HPI Management of GERD: Details: LAST VISIT 02/12/2023 GERD (gastroesophageal reflux disease) Screen for colon cancer Plan Patient denies any GI, cardiac or respiratory symptoms.? However patient is on pantoprazole for reflux and reports that it has been working well. Denies any issues with anesthesia in the past.? History of sleep apnea using CPAP at night.? No history infectious diseases in the past or present.? Patient is on low-dose aspirin. History of PAF, not on any other anticoagulation therapy. Patient has an appointment with her appeals examiner in May, will ask for risk stratification then and book her procedure for June.? Patient denies any cardiac or respiratory symptoms. Patient denies melena, hematochezia, unintentional weight loss or ribbon like stools.? Discussed at length the pre-procedure,? prep, diet & medications as well as what to expect prior, during and after the procedure.?? Stressed the importance of good bowel prep. ?Recommended the use of Vaseline or Calmoseptine OTC & baby wipes with bowel movements to promote comfort.? ?Patient verbalizes understanding and agrees to plan of care.? She was given the opportunity to ask questions and all questions answered.? We will see her after the procedure.? Medications New bisacodyl (Dulcolax (bisacodyl)) take 4 tabs at noon the day before your colonoscopy 20 mg (4 x 5 mg) PO ONCE 1 day 4 tabs 0RF Z12.11 polyethylene glycol 3350 (Miralax) As directed by gastroenterology department at [facility] 238 grams PO ONCE 238 grams 0RF Z12.11 TODAY'S VISIT Seen by me last year for colonoscopy, however patient was unable to get the colonoscopy done. Reports she has reflux, mainly at night time. Patient reports that she did stop eating late at night. No longer snacking before going to bed. Takes pantoprazole in the morning him for the most part her symptoms are suppressed. Patient denies melena, hematochezia. Depending on what she eats symptoms of postprandial abdominal bloating and occasional diarrhea. Denies any abdominal pain or discomfort. Denies any nausea or vomiting. Denies any dyspepsia, dysphagia or odynophagia. [facility] Medical History Dyspnea Swelling of lower extremity Gross hematuria Onychomycosis Polyarthralgia Chronic back pain Migraine Hypovitaminosis D Paroxysmal atrial fibrillation Morbid obesity with BMI of 40.0-44.9, adult Sinusitis GERD (gastroesophageal reflux disease) Pure hypercholesterolemia Obesity JOHN on CPAP Asthma Surgical History Hx of colonoscopy History of pterygium excision History of total abdominal hysterectomy and bilateral salpingo-oophorectomy History of section History of appendectomy Family History Father CVD (cardiovascular disease) Mother Hypertension Brother Colon cancer Sister Colon cancer Thyroid cancer Sister Lupus Maternal Aunt Breast cancer Family/Other FH: mental illness Social History Housing: Apartment Alcohol intake: never Patient Tobacco Use Status: Never used Tobacco e-Cigarette/Vaping Use: Never Used Second Hand Smoke Exposure: No service: No Current occupational status: disabled Cognitive needs: No Hearing needs: No Vision needs: Yes Review of Systems Const Denies weight gain and Denies weight loss ENT Reports no additional complaints, Denies dysphagia and Denies odynophagia Card Reports no additional complaints Resp Reports no additional complaints GI Denies abdominal pain, Denies belching, Denies melena, Denies bloating, Denies change in bowel habits, Denies dysphagia, Denies excessive flatus, Denies dyspepsia, Reports heartburn, Denies diarrhea, Denies loose stools, Denies nausea, Denies odynophagia and Denies vomiting Reports no additional complaints Musc Reports no additional complaints Neuro Reports no additional complaints Psych Reports no additional complaints Endo Reports no additional complaints Physical Exam Vital Signs: Last Vital Signs Pulse 76 12/17/23 10:33 BP 108/68 12/17/23 10:33 Pulse Ox 97 12/17/23 10:33 Oxygen Delivery Method Room Air 12/17/23 10:33 BMI result Body Mass Index 45.2 Const General: healthy appearing and no acute distress Nutritional Appearance: obese Orientation/consciousness: patient oriented x3 Resp Effort & Inspection: normal respiratory effort, able to speak in complete sentences, no tracheal deviation and symmetric chest movement Auscultation: clear to auscultation bilaterally Cardio Rate: regular rate GI Inspection: Yes normal to inspection, No distended and Yes obesity Palpation (GI): Soft to palpation, not firm, nontender and No hepatosplenomegaly present Auscultation: normal bowel sounds General: Yes no CVA tenderness Back/Spine/Pelvis Back: no CVA tenderness Skin General skin exam: elasticity normal, turgor normal and dry skin Neuro General: patient oriented x3 Psych Appearance: grossly normal Mental Status: mental status grossly normal Quality Reporting (2020) Adult ([facility] 138/05/02/68) Smoking risk assessment performed?: Yes Patient Tobacco Use Status: Never used Tobacco Assessment & Plan Assessment & Plan (1) Family history of colon cancer: Code(s): Z80.0 - Family history of malignant neoplasm of digestive organs Category: Medical (2) GERD (gastroesophageal reflux disease): Code(s): K21.9 - Gastro-esophageal reflux disease without esophagitis Category: Medical Qualifiers: Esophagitis presence: esophagitis presence not specified Qualified Code(s): K21.9 - Gastro-esophageal reflux disease without esophagitis (3) Screen for colon cancer: Code(s): Z12.11 - Encounter for screening for malignant neoplasm of colon Plan Message sent to surgical schedulers to book upper endoscopy for patient and colonoscopy. I will see patient in 3 months to re-evaluate her treatment for acid reflux. Patient will increase fiber intake. Just last week patient was placed on Eliquis for PAF and her aspirin was stopped. Patient will need to stop Eliquis for 48 hours before procedure. Will send message to Cardiology if she is still cleared for procedure. Patient is agreeable to current plan of care and verbalizes understanding of instructions. She was given the opportunity to ask questions and all questions answered. Thank you for allowing me to participate in her care Medications: New famotidine (Pepcid) 20 mg PO BEDTIME 30 tabs 3RF K21.9 - Gastro-esophageal reflux disease without esophagitis bisacodyl (Dulcolax (bisacodyl)) take 4 tabs at noon the day before your colonoscopy 20 mg (4 x 5 mg) PO ONCE 1 day 4 tabs 0RF Z12.11 - Encounter for screening for malignant neoplasm of colon polyethylene glycol 3350 (Miralax) As directed by gastroenterology department at [facility] 238 grams PO ONCE 238 grams 0RF Z12.11 - Encounter for screening for malignant neoplasm of colon Refilled pantoprazole 40 mg PO DAILY 90 tabs 2RF Coding Level of Care Code Tele Est Pt Level 4 (45791) Diagnoses Family history of colon cancer Z80.0 Gastroesophageal reflux disease, unspecified whether esophagitis present K21.9 Esophagitis presence: esophagitis presence not specified Screen for colon cancer Z12.11 Time Spent (min) 35 Comment 20 minutes spent with patient and additional 15 minutes spent reviewing her records
== END 2023-12-17 11:22 | disposition home or self-care (01) ==
PROVIDERS: PCP Internal Medicine; Visit Provider Nurse Practitioner Family
DX: K21.9 Gastro-esophageal reflux disease without esophagitis (principal); Z12.11 Encounter for screening for malignant neoplasm of colon; Z80.0 Family history of malignant neoplasm of digestive organs
CPT/HCPCS: 99443

== ENCOUNTER → 2023-12-17 10:30 | Outpatient (BNVA) | payer OTHER, SELFPAY | PROVIDERS: PCP Internal Medicine; Visit Provider Nurse Practitioner Family ==

== ENCOUNTER 2023-12-24 10:33 | Outpatient (REF) | payer OTHER, SELFPAY ==
--- NOTE | ~2023-12-24 | US_ITS ---
EXAMINATION: US RETROPERITONEAL LIMITED (RENAL ONLY) CLINICAL INFORMATION: Other microscopic hematuria. COMPARISON: X-ray [facility] 03/05/2023 and 04/09/2016. CT urogram 09/03/2022. Ultrasound abdomen 05/25/2022. Ultrasound renal 10/26/2021. TECHNIQUE: Real-time imaging of the kidneys. FINDINGS: RIGHT KIDNEY: 10.3 x 6.9 x 5.9 cm (SAG x AP x TRV). The kidney is normal in size, contour, and echogenicity. Renal cortical thickness is normal. No calculi or focal parenchymal lesions. No hydronephrosis. LEFT KIDNEY: 12.9 x 5.1 x 5.2 cm (SAG x AP x TRV). The kidney is normal in size, contour, and echogenicity. Renal cortical thickness is normal. No renal calculi or hydronephrosis. The previously seen 4 x 2 mm nonobstructing left lower pole renal calculus is not seen on this exam. 2 benign Bosniak class I renal cysts are noted, the largest in the mid kidney measuring 3.3 cm, which require no additional imaging or follow-up. No solid renal masses are seen. US/US renal BI IMPRESSION: Negative exam. A cause for the patient's microscopic hematuria has not been found. Electronically signed by: José Miguel Marin MD 02/22/2024 10:46 AM EST
== END 2023-12-24 10:34 | disposition home or self-care (01) ==
LOC: HO.US 10:33
PROVIDERS: PCP Internal Medicine; Visit Provider Urology
DX: R31.29 Other microscopic hematuria (principal)
CPT/HCPCS: 76775

== ENCOUNTER 2024-01-20 10:57 | Outpatient (AMB) | payer OTHER, SELFPAY ==
--- NOTE | 2024-01-20 10:59 | A.OFFVIS_ITS ---
Vital Signs 01/20/24 11:02 Height 5 ft 2 in Weight 243 lb 9.773 oz BMI 44.6 BP 118/62 Blood Pressure Location Lt brachial Position Sitting Pulse 81 Pulse Source Pulse Oximeter Pulse Oximetry (%) 97 Oxygen Delivery Method Room Air Intake Visit Reasons: Obstructive sleep apnea Cyber Incident Responder: Cyber Incident Responder offered & declined Accompanied by: Self / Same As Patient Allergies naproxen Allergy (Severe, Verified 01/20/24 11:06) muscle aches sertraline Allergy (Severe, Verified 01/20/24 11:06) muscle aches amoxicillin [From Augmentin] Allergy (Mild, Verified 01/20/24 11:06) Unknown clavulanic acid [From Augmentin] Allergy (Mild, Verified 01/20/24 11:06) Unknown HPI Comments Details: The patient is a 63-year-old woman known history of asthma in addition to a cardiac history including atrial fibrillation and hypertension. She has been having worsening daytime drowsiness. Also complaining of headaches. In also with her cardiac history she did undergo a sleep study at the laboratory. It demonstrated that she did have [id number] obstructive sleep apnea. She also has significant desaturations down to 83%. She then underwent titration study recommended that she should start CPAP therapy. The CPAP therapy was affecting beneficial. Initially she started with a nasal mask but then switched over to a fullface mask that apparently work better. At this point we did go over the therapy for obstructive sleep apnea and with her cardiac history I did recommend she start CPAP therapy. She is agreeable to this and we will set her up with a local [employer] company. In the meantime she does complaint of nasal congestion also shortness of breath. She does have a history of asthma. She does have a rescue inhaler that she uses as needed. She has not had to use in the last week. Although she feels like she is getting more congested. 11/28/2021 the patient is here for a pulmonary follow-up visit. The patient overall has been doing relatively well. Although she is having increased daytime drowsiness. She start using the CPAP. She could not tolerated. She is also having issues with tachycardia and SVT. She will be followed up with a retail helper soon. Explained to her that this may be from untreated sleep apnea. The patient would like to hold off on the CPAP for now. Patient is no longer getting supplies likely based on the fact that she has been using it. If she does want to go back to using it she will have to probably get another sleep study to get reoccur intubated with a DME company. Once she wants to start using it she can always call the office so we can reset the machine to a pressure that she can not tolerate better. From a respiratory status the patient is doing relatively well. She is using her rescue inhaler on a regular basis usually on a daily basis. Therefore, at this point the patient will be started on maintenance inhaler with hopes that she does not require her rescue inhaler as often. The patient is agreeable to this. 05/28/2022 the patient is here for a pulmonary follow-up visit. The patient has been doing well from a respiratory status. Weight did send her prescription for Breo. She does not use it all the time. Explained to her that she should definitely use it routinely. She also has a rescue inhaler that she can use as needed. The patient is breathing well and denies any significant shortness of breath. Her main issue is her knee discomfort keeping her from being able to move exercise regularly. In addition to this the patient has not been using the CPAP. She rather not use it. She is waking up rested. Her [place] score is 7/24. She is going to continue to try positional therapy. Unfortunately though she has having hard time sleeping on her sides because she is having some left- sided discomfort in her flank. The patient was evaluated by her primary care doctor who ordered a renal ultrasound demonstrating either a cyst or a dilated pelvis of the kidney. I did give her the report and she needs to talk to her primary care doctor regarding the abnormal finding. It is a clear this was causing the discomfort but still should be looked that the since the patient continues to be symptomatic. 11/20/2022 the patient is here for a pulmonary follow-up visit. Overall she is doing well from a respiratory status. She is no longer using the Breo inhaler. She does use her rescue inhaler but typically less than 2 times a week. Does have dyspnea on exertion. Some component of deconditioning. in addition to this the patient has not been using CPAP. We did talk about the importance of positional therapy for sleep apnea. She does wake up rested. Her [place] score is around 7/24. She continues on her cardiac medications. Otherwise patient is without any other complaints. Will have her return in 6 months with a follow-up chest x-ray at that time. If the patient has any worsening symptoms prior to the next visit she is to call the office for an earlier assessment. 05/17/2023 the patient is here for a pulmonary follow-up visit. She still complains of dyspnea on exertion. [id number]-[id number] severity. With minimal activity. She also complains of worsening lower extremity edema. She has been struggling with this for some time. She is already on diuretics. We did talk about dietary indiscretions. This continue low-sodium diet. 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 The patient also has not been using her CPAP and explained to her that can also resulting worsening lower extremity edema. In view of the worsening shortness of breath in the lower extremity edema will request a chest x-ray and also an echocardiogram. Will reassess her with an overnight oximetry as well. In the meantime she should try the compression stockings. Continue with current respiratory medications and follow-up after her studies. 08/12/2023 the patient is here for pulmonary follow-up visit. Overall the patient has been doing fairly well from a respiratory status. She still has lower extremity edema although better. She had difficulties with a compression socks because it caused some bruising. In addition to that she did have the echocardiogram which we personally reviewed. She has a normal cardiac function which is reassuring. Her overnight oximetry is also reassuring. The patient does not qualify for oxygen. She did have worsening cough several weeks ago. The patient was taken to urgent care where she was given prednisone which improve her cough significantly. She had been on Breo but she was taken off Breo since she was doing well. At this point she clinically sounds well without any wheezing. If she notices the cough restart she can start the Breo. She does have some persistent chest congestion. I did send her a tri-pack. 01/20/2024 the patient is here for a pulmonary follow-up visit. Overall she is doing okay from a respiratory status. Recently she was switched over from aspirin to Eliquis because of the atrial fibrillation. She was initially reluctant but I did reassure her that was the best option for her. In addition to that she does use her rescue inhaler. Although she does not use it often. I would switch over to Xopenex to try to minimize on any cardiac irritation. She still can uses as needed. The patient also complains of shortness breath while sleeping. She does have history of asthma so will go ahead and request an overnight oximetry. She is trying to use lower extremity compression stockings although difficult for her to tolerate. She is taking her diuretics with good effect. In addition to that, she had a chest x-ray back in May 2023 that I personally reviewed. Seems to have increased reticular markings could be volume overload status as she did have increased cardiac size. Will go ahead and repeated at this time. The patient follow-up in 4-6 months. [facility] Medical History Dyspnea Swelling of lower extremity Gross hematuria Onychomycosis Polyarthralgia Chronic back pain Migraine Hypovitaminosis D Paroxysmal atrial fibrillation Morbid obesity with BMI of 40.0-44.9, adult Sinusitis GERD (gastroesophageal reflux disease) Pure hypercholesterolemia Obesity JOHN on CPAP Asthma Surgical History Hx of colonoscopy History of pterygium excision History of total abdominal hysterectomy and bilateral salpingo-oophorectomy History of section History of appendectomy Family History Father CVD (cardiovascular disease) Mother Hypertension Brother Colon cancer Sister Colon cancer Thyroid cancer Sister Lupus Maternal Aunt Breast cancer Family/Other FH: mental illness Social History Housing: Apartment Alcohol intake: never Patient Tobacco Use Status: Never used Tobacco e-Cigarette/Vaping Use: Never Used Second Hand Smoke Exposure: No service: No Current occupational status: disabled Cognitive needs: No Hearing needs: No Vision needs: Yes Review of Systems Const Denies daytime sleepiness and Denies weakness ENT Denies dizziness Card Reports leg edema, Denies palpitations and Reports dyspnea on exertion Resp Reports cough, Reports dyspnea on exertion and Denies wheezing GI Denies hematochezia and Denies change in stool character Reports flank pain Musc Denies numbness Neuro Denies dizziness, Denies numbness and Denies weakness Endo Denies palpitations Aller/Immun Denies wheezing Physical Exam Vital Signs: Last Vital Signs Pulse 81 01/20/24 11:02 BP 118/62 01/20/24 11:02 Pulse Ox 97 01/20/24 11:02 Oxygen Delivery Method Room Air 01/20/24 11:02 BMI result Body Mass Index 44.6 Const General: alert Neck Neck: Yes normal visual inspection, Yes full ROM and Yes no lymphadenopathy Chest Chest palpation & inspection: normal inspection of the chest Resp Effort & Inspection: normal respiratory effort Auscultation: diminished lung sounds Cardio Rate: regular rate Rhythm: regular rhythm Heart sounds: S1 normal heart sound present and S2 normal heart sound present GI Palpation (GI): Soft to palpation and nontender Auscultation: normal bowel sounds Skin General skin exam: rashes and/or lesions noted Extrem General: Yes edema Quality Reporting (2019) Adult ([facility] ) Smoking risk assessment performed?: Yes Patient Tobacco Use Status: Never used Tobacco Assessment & Plan Assessment & Plan (1) Dyspnea: Code(s): R06.00 - Dyspnea, unspecified Category: Medical Qualifiers: Dyspnea type: dyspnea on exertion Qualified Code(s): R06.09 - Other forms of dyspnea (2) Asthma: Code(s): J45.909 - Unspecified asthma, uncomplicated Category: Medical Qualifiers: Asthma complication type: uncomplicated Asthma persistence: persistent Asthma severity: moderate Qualified Code(s): J45.40 - Moderate persistent asthma, uncomplicated (3) GERD (gastroesophageal reflux disease): Code(s): K21.9 - Gastro-esophageal reflux disease without esophagitis Category: Medical Qualifiers: Esophagitis presence: esophagitis presence not specified Qualified Code(s): K21.9 - Gastro-esophageal reflux disease without esophagitis Plan MATHEW as needed, xopenex positional therapy diuresis as tolerated sleep with the head of the elevated compression stockings as tolerated CXR overnight oximetry on RA F/U 6-8 months Orders: Orders XR chest 2V Today R06.09 - Other forms of dyspnea Overnight Pulse Oximetry Today J45.40 - Moderate persistent asthma, uncomplicated Medications: New levalbuterol tartrate 45 mcg/actuation (Xopenex HFA) 2 puffs inhalation Q6H PRN 15 grams 11RF shortness of breath or wheezing 30 days J45.909 - Unspecified asthma, uncomplicated Discontinued albuterol sulfate 90 mcg/actuation Discontinued Reason: Doctor's Order 2 inhalations inhalation Q6H PRN 8.5 grams 11RF shortness of breath or wheezing Coding Level of Care Code Est Pt Level 4 (62883) Diagnoses Dyspnea on exertion R06.09 Dyspnea type: dyspnea on exertion Moderate persistent asthma without complication J45.40 Asthma complication type: uncomplicated Asthma persistence: persistent Asthma severity: moderate Gastroesophageal reflux disease, unspecified whether esophagitis present K21.9 Esophagitis presence: esophagitis presence not specified Time Spent (min) 16
[2024-01-20 11:02] VITALS: BP 118/62; PULSE 81; O2SAT 97; BMI 44.6
== END 2024-01-20 11:24 | disposition home or self-care (01) ==
PROVIDERS: PCP Internal Medicine; Visit Provider Hospitalist
DX: R06.09 Other forms of dyspnea (principal); J45.40 Moderate persistent asthma, uncomplicated; K21.9 Gastro-esophageal reflux disease without esophagitis
CPT/HCPCS: 99214

== ENCOUNTER → 2024-01-20 10:57 | Outpatient (BNVA) | payer OTHER, SELFPAY | PROVIDERS: PCP Internal Medicine; Visit Provider Hospitalist | DX: J45.40 Moderate persistent asthma, uncomplicated (principal); R06.09 Other forms of dyspnea; K21.9 Gastro-esophageal reflux disease without esophagitis; G47.33 Obstructive sleep apnea (adult) (pediatric) | CPT/HCPCS: 99212 ==

== ENCOUNTER 2024-02-28 14:09 | Outpatient (REF) | payer OTHER, SELFPAY | END 2024-02-28 14:10 | disposition home or self-care (01) | LOC: HO.LAB 14:09 | PROVIDERS: PCP Internal Medicine; Visit Provider Internal Medicine | DX: E55.9 Vitamin D deficiency, unspecified (principal) | CPT/HCPCS: 36415; 82306 ==

== ENCOUNTER 2024-03-02 13:27 | Outpatient (AMB) | payer OTHER, SELFPAY ==
--- NOTE | 2024-03-02 13:32 | MHC.PC.OV ---
Vital Signs 03/02/24 13:33 Height 5 ft 2 in Weight 244 lb BMI 44.6 BP 118/62 Blood Pressure Location Lt brachial Position Sitting Intake Visit Reasons: constipation Intake Note: Patient here for a follow up Constipation, c/o right foot pain Research And Development Engineer Required: No Accompanied by: Self / Same As Patient Allergies naproxen Allergy (Severe, Verified 03/02/24 13:46) muscle aches sertraline Allergy (Severe, Verified 03/02/24 13:46) muscle aches amoxicillin [From Augmentin] Allergy (Mild, Verified 03/02/24 13:46) Unknown clavulanic acid [From Augmentin] Allergy (Mild, Verified 03/02/24 13:46) Unknown Medication List - Last Reconciled 03/02/24 by Simran Thompson MD apixaban (Eliquis) 5 mg PO BID atorvastatin 40 mg PO DAILY bisacodyl (Dulcolax (bisacodyl)) 20 mg (4 x 5 mg) PO ONCE 1 day carvedilol 6.25 mg PO BID 90 days cholecalciferol (vitamin D3) (Vitamin D3) 25 mcg PO DAILY compress.stocking,knee,reg,med 15-20 cm diclofenac sodium 1% (Aleve (diclofenac)) 2 grams topical QID PRN famotidine 20 mg PO BEDTIME furosemide 20 mg PO DAILY 90 days gabapentin 300 mg PO BEDTIME levalbuterol tartrate 45 mcg/actuation (Xopenex HFA) 2 puffs inhalation Q6H PRN 30 days montelukast 10 mg PO DAILY nebulizers As directed pantoprazole 40 mg PO DAILY polyethylene glycol 3350 (Miralax) 238 grams PO ONCE Shower Chair As directed triamcinolone acetonide 0.5% 1 appl topical BID PRN 30 days Tobacco use date assessed: 04/02/23 Fall risk assessment: No Falls in past year Last assessed Fall Risk: 03/02/24 Dental Screening Dental Screen Date: 03/02/24 Did you have a dental visit in the last 12 months?: No Did you have a dental problem in the last 6 months where you did not have access to dental care?: No Was dental information given to patient?: Patient has dentist HPI HPI Comments History of Present Illness Details The patient is a 64-year-old female presenting with management for atrial fibrillation and hyperlipidemia, and symptoms of foot discomfort due to calluses. The patient has a history of atrial fibrillation for which she is currently under cardiology supervision, taking Eliquis 5 mg twice daily. She also takes carvedilol twice daily. She reports good compliance with these medications. For hyperlipidemia, she is on atorvastatin 40 mg, yet she shared a historical adverse reaction. The patient complains of calluses on her left foot, causing significant discomfort. The issue does not appear to have been caused by trauma or footwear. The calluses were identified upon physical examination and noted to be quite palpable. Prior interventions have not been detailed, but there is an indication for referral to podiatry for management. The patient also has a BMI of 44.6, classified as morbidly obese. She acknowledges stable weight over recent months but has expressed a need for weight management due to associated health risks. Also has bilateral knee osteoarthritis and will benefit from having a recliner. Occasionally use a cane for gait stability. GERD stable with famotidine and PPIs. Scheduled for a colonoscopy in 2 months. FORMERLY [facility] Medical History (Updated 03/02/24 @ 13:55 by Simran Thompson MD) Dyspnea Swelling of lower extremity Gross hematuria Onychomycosis Polyarthralgia Chronic back pain Migraine Hypovitaminosis D Paroxysmal atrial fibrillation Morbid obesity with BMI of 40.0-44.9, adult Sinusitis GERD (gastroesophageal reflux disease) Pure hypercholesterolemia Obesity JOHN on CPAP Asthma Surgical History Hx of colonoscopy History of pterygium excision History of total abdominal hysterectomy and bilateral salpingo-oophorectomy History of section History of appendectomy Family History Father CVD (cardiovascular disease) Mother Hypertension Brother Colon cancer Sister Colon cancer Thyroid cancer Sister Lupus Maternal Aunt Breast cancer Family/Other FH: mental illness Social History Housing: Apartment Alcohol intake: never Patient Tobacco Use Status: Never used Tobacco e-Cigarette/Vaping Use: Never Used Second Hand Smoke Exposure: No service: No Current occupational status: disabled Cognitive needs: No Hearing needs: No Vision needs: Yes Questionnaire Thrive Questionnaire Date Thrive assessed: 04/02/23 LI-7 AMB Questionnaire LI-7 Date LI - 7 assessed: 04/02/23 Source: Developed by DrsOdilon Frausto, Kelly Johnson, Ellis Berumen and colleagues, with an educational lisette from [employer]. Review of Systems Const Details: - Dermatological: Reports discomfort from calluses on the foot. - Cardiovascular: Only discusses presence of atrial fibrillation, no additional symptoms mentioned. - Gastrointestinal: Denies any additional symptoms beyond those related to GERD. Physical exam (Primary Care) Vital Signs: Last Vital Signs BP 118/62 03/02/24 13:33 BMI result Body Mass Index 44.6 BMI Assessment/Plan discussion: High BMI High, discussed plan: lifestyle, weight reduction, dietary and physical activity Tobacco/Smoking Status: Tobacco use Status Tobacco use date assessed 04/02/23 03/02/24 13:40 Patient Tobacco Use Status Never used Tobacco 03/02/24 13:40 e-Cigarette/Vaping Use Never Used 03/02/24 13:40 Thrive Assessment: Date of Thrive Assessment Date Thrive assessed 04/02/23 03/02/24 13:40 Const Other: General: No confusion Respiratory: Normal respiratory effort, clear to auscultation bilaterally Cardiovascular: No jugular venous distension, regular rate, regular rhythm, S1 normal heart sound present and S2 normal heart sound present Extremities: Full ROM, but patient reports pain under the left foot, possibly due to calluses Psychology: Grossly normal Coding Level of Care Code Est Pt Level 4 (75920) Complex EM visit Add On G2211 Diagnoses Paroxysmal atrial fibrillation I48.0 Morbid obesity with BMI of 40.0-44.9, adult E66.01; Z68.41 Pure hypercholesterolemia E78.00 Foot callus L84 Other secondary osteoarthritis of both knees M17.4 Osteoarthritis type: other secondary Gastroesophageal reflux disease, unspecified whether esophagitis present K21.9 Esophagitis presence: esophagitis presence not specified Time Spent (min) 23 Assessment & Plan Assessment & Plan (1) Paroxysmal atrial fibrillation: Code(s): I48.0 - Paroxysmal atrial fibrillation Category: Medical (2) Morbid obesity with BMI of 40.0-44.9, adult: Code(s): E66.01 - Morbid (severe) obesity due to excess calories; Z68.41 - Body mass index [BMI] 40.0-44.9, adult Category: Medical (3) Pure hypercholesterolemia: Code(s): E78.00 - Pure hypercholesterolemia, unspecified Category: Medical (4) Foot callus: Code(s): L84 - Corns and callosities Category: Medical (5) Osteoarthritis of both knees: Code(s): M17.0 - Bilateral primary osteoarthritis of knee Category: Medical Qualifiers: Osteoarthritis type: other secondary Qualified Code(s): M17.4 - Other bilateral secondary osteoarthritis of knee (6) GERD (gastroesophageal reflux disease): Code(s): K21.9 - Gastro-esophageal reflux disease without esophagitis Category: Medical Qualifiers: Esophagitis presence: esophagitis presence not specified Qualified Code(s): K21.9 - Gastro-esophageal reflux disease without esophagitis Plan - Continue with current medication regimen for atrial fibrillation Eliquis, carvedilol) and hyperlipidemia atorvastatin). - Refer to podiatry for callus management and consider prescription orthotics. - Monitor weight and encourage weight management for obesity. - Schedule colonoscopy as planned in April. Patient was informed and verbally consented to the use of an ambient scribe for clinic note documentation during this visit. I informed the patient about the necessity to continue her current management plan for atrial fibrillation and hyperlipidemia. We discussed her foot calluses and the option of seeing a tunnel man for better management, including prescription orthotics. Weight management strategies were touched upon due to her high BMI, explaining the impact on her overall health. Plans for a colonoscopy in April were confirmed without current need for repeat laboratory tests unless otherwise indicated. Orders: Orders Vitamin D 25-OH Total 6 Months E55.9 - Vitamin D deficiency, unspecified Complete Blood Count Auto Diff 6 Months D64.9 - Anemia, unspecified Comprehensive Riner. Panel Fast 6 Months E66.01 - Morbid (severe) obesity due to excess calories, Z68.41 - Body mass index [BMI] 40.0-44.9, adult XR foot LT 2V Today L84 - Corns and callosities Lipid Panel 6 Months E78.5 - Hyperlipidemia, unspecified IRON PROFILE 6 Months D64.9 - Anemia, unspecified Referrals Podiatry Referral L84 - Corns and callosities Medications: New [recliner] As directed 1 ea 0RF E66.01 - Morbid (severe) obesity due to excess calories, M17.4 - Other bilateral secondary osteoarthritis of knee, M79.89 - Other specified soft tissue disorders, Z68.41 - Body mass index [BMI] 40.0-44.9, adult Patient Instructions: - Maintain current treatment regimen; continue taking Eliquis, carvedilol, and atorvastatin as prescribed. - Visit the tunnel man for evaluation and treatment of foot calluses. - Monitor weight and explore realistic weight loss strategies; consider a consultation for nutritional guidance. - Follow up as necessary for any further concerns or changes in symptoms.
[2024-03-02 13:33] VITALS: BP 118/62; BMI 44.6
== END 2024-03-02 14:00 | disposition home or self-care (01) ==
PROVIDERS: PCP Internal Medicine; Visit Provider Internal Medicine
DX: I48.0 Paroxysmal atrial fibrillation (principal); E66.01 Morbid (severe) obesity due to excess calories; Z68.41 Body mass index [BMI] 40.0-44.9, adult; E78.00 Pure hypercholesterolemia, unspecified; L84 Corns and callosities; M17.4 Other bilateral secondary osteoarthritis of knee; K21.9 Gastro-esophageal reflux disease without esophagitis

== ENCOUNTER → 2024-03-02 13:27 | Outpatient (BNVA) | payer OTHER, SELFPAY | PROVIDERS: PCP Internal Medicine; Visit Provider Internal Medicine | DX: I48.0 Paroxysmal atrial fibrillation (principal); E66.01 Morbid (severe) obesity due to excess calories; Z68.41 Body mass index [BMI] 40.0-44.9, adult; E78.00 Pure hypercholesterolemia, unspecified; L84 Corns and callosities; M17.4 Other bilateral secondary osteoarthritis of knee; K21.9 Gastro-esophageal reflux disease without esophagitis; Z71.3 Dietary counseling and surveillance | CPT/HCPCS: 99212 ==

== ENCOUNTER 2024-03-06 13:00 | Outpatient (AMB) | payer OTHER, SELFPAY ==
--- NOTE | 2024-03-03 09:11 | A.OFFVIS_ITS ---
Intake Visit Reasons: 1y/US Allergies naproxen Allergy (Severe, Verified 03/02/24 13:46) muscle aches sertraline Allergy (Severe, Verified 03/02/24 13:46) muscle aches amoxicillin [From Augmentin] Allergy (Mild, Verified 03/02/24 13:46) Unknown clavulanic acid [From Augmentin] Allergy (Mild, Verified 03/02/24 13:46) Unknown PFSH Medical History Dyspnea Swelling of lower extremity Gross hematuria Onychomycosis Polyarthralgia Chronic back pain Migraine Hypovitaminosis D Paroxysmal atrial fibrillation Morbid obesity with BMI of 40.0-44.9, adult Sinusitis GERD (gastroesophageal reflux disease) Pure hypercholesterolemia Obesity JOHN on CPAP Asthma Surgical History Hx of colonoscopy History of pterygium excision History of total abdominal hysterectomy and bilateral salpingo-oophorectomy History of section History of appendectomy Family History Father CVD (cardiovascular disease) Mother Hypertension Brother Colon cancer Sister Colon cancer Thyroid cancer Sister Lupus Maternal Aunt Breast cancer Family/Other FH: mental illness Social History Housing: Apartment Alcohol intake: never Patient Tobacco Use Status: Never used Tobacco e-Cigarette/Vaping Use: Never Used Second Hand Smoke Exposure: No service: No Current occupational status: disabled Cognitive needs: No Hearing needs: No Vision needs: Yes Quality Reporting (2019) Adult ([facility] 138/05/02/68) Smoking risk assessment performed?: Yes Patient Tobacco Use Status: Never used Tobacco Coding
--- NOTE | 2024-03-06 13:01 | A.OFFVIS_ITS ---
Intake Visit Reasons: 1y/US(Set) Intake Note: Patient presents today for 1y/US Meds- Furosemide Allergies to Antibiotic- Amoxicillin Blood Thinner- Aspirin Vector Control Assistant Required: Yes Vector Control Assistant Language: Construction Accountant Name: Nathaly---[id number] Accompanied by: Self / Same As Patient Allergies naproxen Allergy (Severe, Verified 03/06/24 13:04) muscle aches sertraline Allergy (Severe, Verified 03/06/24 13:04) muscle aches amoxicillin [From Augmentin] Allergy (Mild, Verified 03/06/24 13:04) Unknown clavulanic acid [From Augmentin] Allergy (Mild, Verified 03/06/24 13:04) Unknown HPI Comments Details: 03/06/24--can is a 64-year-old female who was referred due to microscopic hematuria. She had workup including upper tract imaging and office cystoscopy. She was noted to have a left kidney stone and benign renal cysts. She is here for 1 year follow-up and I have reviewed repeat kidney ultrasound which is within normal limits the previous seen left kidney stone is no longer present. The patient denies urinary symptoms or flank pain. Urinalysis persistent microscopic hematuria, no signs of infection. Hematuria workup at this time negative for malignancy. Will follow-up on a p.r.n. basis. US renal 12/28/23--The previously seen 4 x 2 mm nonobstructing left lower pole renal calculus is not seen on this exam. 2 benign Bosniak class I renal cysts are noted, the largest in the mid kidney measuring 3.3 cm, which require no additional imaging or follow-up. Review of chart: 03/02/24--Can is a 62-year-old female who presents to the office for a 6month follow-up with KUB results. --09/06/22-- The patient is [place] speaking female. Certified pillar man was present during the visit. She has been evaluated for persistent microscopic hematuria. w/u notable for left kidney stone. She was seen on 07/20/22 for office cytoscopy. Cystoscopy findings-- no suspicious bladder lesions visualized. She had a renal US--10/26/21--which reported cyst versus hydronephrosis. 09/03/22--CT urogram 4 x 2 mm nonobstructing left lower pole renal calculus. The patient states drinking adequate amount of water up to 60 ounces in a day. FOR[facility]LY [facility] Medical History Dyspnea Swelling of lower extremity Gross hematuria Onychomycosis Polyarthralgia Chronic back pain Migraine Hypovitaminosis D Paroxysmal atrial fibrillation Morbid obesity with BMI of 40.0-44.9, adult Sinusitis GERD (gastroesophageal reflux disease) Pure hypercholesterolemia Obesity JOHN on CPAP Asthma Surgical History Hx of colonoscopy History of pterygium excision History of total abdominal hysterectomy and bilateral salpingo-oophorectomy History of section History of appendectomy Family History Father CVD (cardiovascular disease) Mother Hypertension Brother Colon cancer Sister Colon cancer Thyroid cancer Sister Lupus Maternal Aunt Breast cancer Family/Other FH: mental illness Social History Housing: Apartment Alcohol intake: never Patient Tobacco Use Status: Never used Tobacco e-Cigarette/Vaping Use: Never Used Second Hand Smoke Exposure: No service: No Current occupational status: disabled Cognitive needs: No Hearing needs: No Vision needs: Yes Review of Systems Const All systems reviewed & are unremarkable except as noted in HPI and below Reports no additional complaints Eyes Reports no additional complaints ENT Reports no additional complaints Card Reports no additional complaints Resp Reports no additional complaints GI Reports no additional complaints Reports as per HPI Musc Reports no additional complaints Skin/Breast Reports system reviewed and no additional complaints, except as documented Neuro Reports no additional complaints Psych Reports no additional complaints Endo Reports no additional complaints Bradley/Lymph Reports no additional complaints Aller/Immun Reports no additional complaints Results AMB Urinalysis, Automated UA Leukoctes 0 Daquan/uL Last Edit by JESSICA Molina on 03/06/24 13:13 UA Nitrite Negative Last Edit by Arabella Padron [facility] on 03/06/24 13:13 UA Urobilinogen 0.2 mg/dL Last Edit by JESSICA Molina on 03/06/24 13:1 3 UA Protein 0 mg/dL Last Edit by Arabella Padron [facility] on 03/06/24 13:13 UA pH 5.0 Last Edit by Arabella Padron [facility] on 03/06/24 13:13 UA Blood 200 Vitor/uL Last Edit by Arabella Padron [facility] on 03/06/24 13:13 UA Specific [place] 1.030 Last Edit by JESSICA Molina on 03/06/24 13: 13 UA Ketone Negative Last Edit by Arabella Padron [facility] on 03/06/24 13:13 UA Bilirubin 0 mg/dL Last Edit by Arabella Padron [facility] on 03/06/24 13:13 UA Glucose 0 mg/dL Last Edit by Arabella Padron [facility] on 03/06/24 13:13 Quality Reporting (2019) Adult ([facility] 138/05/02/68) Smoking risk assessment performed?: Yes Patient Tobacco Use Status: Never used Tobacco Results Reviewed Results Reviewed: Laboratory Last Values Urine pH (Auto) 5.0 03/06/24 13:12 Specific [place] (Auto) 1.030 03/06/24 13:12 Urine Protein (Auto) 0 mg/dL 03/06/24 13:12 Glucose (UA)(Auto) 0 mg/dL 03/06/24 13:12 Urine Ketones (Auto) Negative 03/06/24 13:12 Urine Blood (Auto) 200 Vitor/uL 03/06/24 13:12 Urine Nitrite (Auto) Negative 03/06/24 13:12 Urine Bilirubin (Auto) 0 mg/dL 03/06/24 13:12 Urine Urobilinogen (Auto) 0.2 mg/dL 03/06/24 13:12 Leukocyte Esterase (Auto) 0 Daquan/uL 03/06/24 13:12 Date of Service: 12/24/23 US RETROPERITONEAL LIMITED (RENAL ONLY) CLINICAL INFORMATION: Other microscopic hematuria. COMPARISON: X-ray KUB 03/05/2023 and 04/09/2016. CT urogram 09/03/2022. Ultrasound abdomen 05/25/2022. Ultrasound renal 10/26/2021. TECHNIQUE: Real-time imaging of the kidneys. FINDINGS: RIGHT KIDNEY: 10.3 x 6.9 x 5.9 cm (SAG x AP x TRV). The kidney is normal in size, contour, and echogenicity. Renal cortical thickness is normal. No calculi or focal parenchymal lesions. No hydronephrosis. LEFT KIDNEY: 12.9 x 5.1 x 5.2 cm (SAG x AP x TRV). The kidney is normal in size, contour, and echogenicity. Renal cortical thickness is normal. No renal calculi or hydronephrosis. The previously seen 4 x 2 mm nonobstructing left lower pole renal calculus is not seen on this exam. 2 benign Bosniak class I renal cysts are noted, the largest in the mid kidney measuring 3.3 cm, which require no additional imaging or follow-up. No solid renal masses are seen. IMPRESSION: Negative exam. A cause for the patient's microscopic hematuria has not been found. Date of Service: 09/03/22 EXAMINATION: CT UROGRAM WITHOUT AND WITH CONTRAST CLINICAL INFORMATION: Hematuria COMPARISON: None available. TECHNIQUE: Noncontrast CT of the abdomen and pelvis is performed followed by split bolus contrast-enhanced images using 85 mL Omnipaque 350 contrast.? Postcontrast imaging is performed during the combined nephrogram and excretion phase. Sagittal and coronal reformatted images were obtained on the technologist's workstation for both the precontrast and postcontrast phases. This CT examination was performed using dose optimization techniques as appropriate, variously including the following: *Automated exposure control *Adjustment of mA and/or kV according to patient size (this includes techniques or standardized protocols for targeted exams where dose is matched to indication/reason for exam; i.e. extremities or head) *Use of iterative reconstruction technique DLP: 1039 mGy-cm FINDINGS: LUNG BASES: The visualized lung bases are unremarkable. LIVER, GALLBLADDER, AND BILIARY TREE: The liver is normal in size, shape, and attenuation. No focal hepatic lesion or biliary ductal dilatation is present. The gallbladder is unremarkable with no evidence of radiopaque gallstones, gallbladder wall thickening, or obvious pericholecystic inflammatory changes. PANCREAS: Unremarkable. SPLEEN: Unremarkable. ADRENAL GLANDS: Unremarkable. KIDNEYS AND URETERS: The kidneys are normal in size, shape, and attenuation. The left kidney measures 12.0 cm in length with the right kidney measuring 10.8 cm. There is a 4 x 2 mm nonobstructing left lower pole renal calculus that measures about 500 Hounsfield units and is 14 cm from the posterior axillary line. No hydronephrosis, hydroureter, or calculi seen. No perinephric stranding. There is some minimal prominence of the left collecting system caused by compression of the renal pelvis by a benign Bosniak class I 3.0 cm renal cyst near the renal pelvis. This has been seen on prior imaging studies and needs no additional imaging or follow-up. No solid renal masses are seen. A few other smaller cysts are present including an approximately 1 cm cyst in the right mid kidney medially (9:159) which also needs no additional imaging or follow-up. No solid renal masses are seen. Collecting systems appear normal without filling defects or mucosal abnormalities. The ureters are nondilated. BLADDER: Unremarkable. GASTROINTESTINAL TRACT: Moderate-sized hiatal hernia is present. The small and large bowel are unremarkable aside from sigmoid diverticulosis without diverticulitis. The appendix is not seen but there is no evidence of appendicitis. ABDOMINAL WALL: No significant hernia is appreciated. LYMPH NODES: Normal. VASCULAR: Unremarkable. PELVIC VISCERA: The uterus is not seen. An abnormal adnexal mass or free intraperitoneal fluid is not present. OSSEUS STRUCTURES: Degenerative changes are seen in the spine most marked at L2-L3. IMPRESSION: 1. A cause for the patient's hematuria has not been found aside from the presence of a 4 x 2 mm nonobstructing left lower pole renal calculus. 2. Incidental note made of benign Bosniak class I renal cysts which need no additional imaging or follow-up, sigmoid diverticulosis and degenerative changes in the spine. Assessment & Plan Assessment & Plan (1) Microscopic hematuria: Code(s): R31.29 - Other microscopic hematuria Category: Medical (2) History of kidney stones: Code(s): Z87.442 - Personal history of urinary calculi Category: Medical (3) Renal cyst: Code(s): N28.1 - Cyst of kidney, acquired Category: Medical Plan I have reviewed repeat kidney ultrasound which is within normal limits the previous seen left kidney stone is no longer present. The patient denies urinary symptoms or flank pain. Urinalysis persistent microscopic hematuria, no signs of infection. Hematuria workup at this time negative for malignancy. Will follow-up on a p.r.n. basis. Orders: Orders AMB Urinalysis Automated Today Z13.9 - Encounter for screening, unspecified Patient Instructions: The patient had an opportunity to ask questions regarding treatment plan. The patient expressed understanding and agreement with the above treatment plan. The patient is aware they should contact our office by phone for worsening of their current condition or the appearance of new symptoms. Compliance is encoura ged with any medications and followup testing that is ordered. It is a privilege to be allowed the opportunity to participate in the urologic care of your patient. If you have any questions or concerns regarding treatment for the above conditions please do not hesitate to contact me. The office telephone contact is [phone]. This note is constructed in part using voice recognition software. While every effort has been made to ensure accuracy diesel engine mechanic apprentice errors may have been included. Yours sincerely, Stephany Cardenas MD Coding Level of Care Code Est Pt Level 4 (92147) Diagnoses Microscopic hematuria R31.29 History of kidney stones Z87.442 Renal cyst N28.1
== END 2024-03-06 13:32 | disposition home or self-care (01) ==
PROVIDERS: PCP Internal Medicine; Visit Provider Urology
DX: R31.29 Other microscopic hematuria (principal); Z87.442 Personal history of urinary calculi; N28.1 Cyst of kidney, acquired; Z13.9 Encounter for screening, unspecified
CPT/HCPCS: 99214

== ENCOUNTER → 2024-03-06 13:00 | Outpatient (BNVA) | payer OTHER, SELFPAY | PROVIDERS: PCP Internal Medicine; Visit Provider Urology | DX: R31.29 Other microscopic hematuria (principal); N28.1 Cyst of kidney, acquired; Z87.442 Personal history of urinary calculi | CPT/HCPCS: 81003; 99212 ==

== ENCOUNTER 2024-03-20 11:32 | Outpatient (AMB) | payer OTHER, SELFPAY ==
--- NOTE | 2024-03-20 11:37 | MHC.OFFVIS ---
Vital Signs 03/20/24 11:39 Height 5 ft 2 in Weight 247 lb 5.738 oz BMI 45.2 BP 122/66 Blood Pressure Location Rt brachial Position Sitting Pulse 78 Pulse Source Pulse Oximeter Pulse Oximetry (%) 97 Oxygen Delivery Method Room Air Intake Visit Reasons: 3 f/u mo. Family history of colon cancer Intake Note: ESTABLISHED PATIENT Reason; 3 mo and Pre op. Changes/concerns? No significant concerns per pt. Review prep for colo. Folder Taper Operator Required: Yes Folder Taper Operator Services: Folder Taper Operator Present Folder Taper Operator Name: Gu[place]ako [id number] Information Interpreted: non-clinical & clinical Accompanied by: Self / Same As Patient Allergies naproxen Allergy (Severe, Verified 03/20/24 11:42) muscle aches sertraline Allergy (Severe, Verified 03/20/24 11:42) muscle aches amoxicillin [From Augmentin] Allergy (Mild, Verified 03/20/24 11:42) Unknown clavulanic acid [From Augmentin] Allergy (Mild, Verified 03/20/24 11:42) Unknown HPI HPI 3 f/u mo. Family history of colon cancer: Details: LAST VISIT Family history of colon cancer GERD (gastroesophageal reflux disease) Screen for colon cancer Plan Message sent to surgical schedulers to book upper endoscopy for patient and colonoscopy. I will see patient in 3 months to re-evaluate her treatment for acid reflux. Patient will increase fiber intake. Just last week patient was placed on Eliquis for PAF and her aspirin was stopped. Patient will need to stop Eliquis for 48 hours before procedure. Will send message to Cardiology if she is still cleared for procedure. Patient is agreeable to current plan of care and verbalizes understanding of instructions. She was given the opportunity to ask questions and all questions answered. ? Thank you for allowing me to participate in her care Medications New famotidine (Pepcid) 20 mg PO BEDTIME 30 tabs 3RF K21.9 bisacodyl (Dulcolax (bisacodyl)) take 4 tabs at noon the day before your colonoscopy 20 mg (4 x 5 mg) PO ONCE 1 day 4 tabs 0RF Z12.11 polyethylene glycol 3350 (Miralax) As directed by gastroenterology department at [facility] 238 grams PO ONCE 238 grams 0RF Z12.11 Refilled pantoprazole 40 mg PO DAILY 90 tabs 2RF TODAY'S VISIT Patient is here today for follow-up and to go over prep again. She is reporting to me that she is feeling better. Taking pantoprazole in the morning and famotidine at bedtime. Her symptoms of acid reflux are suppressed for the most part. Procedure is booked for next month. Patient has and family history of CRC patient's brother and sister both diagnosed with CRC. Patient denies any melena, hematochezia, unintentional weight loss or ribbon like stools. Patient reports that she is moving her bowels without any issues. Patient denies any cardiac or respiratory symptoms. Patient is on Eliquis and will need to stop 48 hours before going for procedure. History of sleep apnea [facility] Medical History Dyspnea Swelling of lower extremity Gross hematuria Onychomycosis Polyarthralgia Chronic back pain Migraine Hypovitaminosis D Paroxysmal atrial fibrillation Morbid obesity with BMI of 40.0-44.9, adult Sinusitis GERD (gastroesophageal reflux disease) Pure hypercholesterolemia Obesity JOHN on CPAP Asthma Surgical History Hx of colonoscopy History of pterygium excision History of total abdominal hysterectomy and bilateral salpingo-oophorectomy History of section History of appendectomy Family History Father CVD (cardiovascular disease) Mother Hypertension Brother Colon cancer Sister Colon cancer Thyroid cancer Sister Lupus Maternal Aunt Breast cancer Family/Other FH: mental illness Social History Housing: Apartment Alcohol intake: never Patient Tobacco Use Status: Never used Tobacco e-Cigarette/Vaping Use: Never Used Second Hand Smoke Exposure: No service: No Current occupational status: disabled Cognitive needs: No Hearing needs: No Vision needs: Yes Review of Systems Const Denies weight gain and Denies weight loss ENT Reports no additional complaints, Denies dysphagia and Denies odynophagia Card Reports no additional complaints Resp Reports no additional complaints GI Denies abdominal pain, Denies belching, Denies melena, Denies bloating, Denies change in bowel habits, Denies dysphagia, Denies excessive flatus, Denies dyspepsia, Denies heartburn, Denies diarrhea, Denies loose stools, Denies nausea, Denies odynophagia and Denies vomiting Musc Reports no additional complaints Neuro Reports no additional complaints Psych Reports no additional complaints Endo Reports no additional complaints Physical Exam Vital Signs: Last Vital Signs Pulse 78 03/20/24 11:39 BP 122/66 03/20/24 11:39 Pulse Ox 97 03/20/24 11:39 Oxygen Delivery Method Room Air 03/20/24 11:39 BMI result Body Mass Index 45.2 Const General: healthy appearing and no acute distress Nutritional Appearance: obese Orientation/consciousness: patient oriented x3 Resp Effort & Inspection: normal respiratory effort, able to speak in complete sentences, no tracheal deviation and symmetric chest movement Auscultation: clear to auscultation bilaterally Cardio Rate: regular rate GI Inspection: Yes normal to inspection, No distended and Yes obesity Palpation (GI): Soft to palpation, not firm, nontender and No hepatosplenomegaly present Auscultation: normal bowel sounds General: Yes no CVA tenderness Back/Spine/Pelvis Back: no CVA tenderness Skin General skin exam: elasticity normal, turgor normal and dry skin Neuro General: patient oriented x3 Psych Appearance: grossly normal Mental Status: mental status grossly normal Quality Reporting (2019) Adult ([facility] 138/05/02/68) Smoking risk assessment performed?: Yes Patient Tobacco Use Status: Never used Tobacco Assessment & Plan Assessment & Plan (1) Family history of colon cancer: Code(s): Z80.0 - Family history of malignant neoplasm of digestive organs Category: Medical (2) GERD (gastroesophageal reflux disease): Code(s): K21.9 - Gastro-esophageal reflux disease without esophagitis Category: Medical Qualifiers: Esophagitis presence: esophagitis presence not specified Qualified Code(s): K21.9 - Gastro-esophageal reflux disease without esophagitis (3) Screen for colon cancer: Code(s): Z12.11 - Encounter for screening for malignant neoplasm of colon Plan Colonoscopy and endoscopy scheduled for next month. Long discussion with patient about avoiding dietary triggers. Continue pantoprazole, may use famotidine at bedtime as needed. Patient will hold Eliquis for 48 hours before going for procedure. Long discussion with patient about what to expect before during and after procedure. Stressed the importance of clear liquid diet and good bowel prep day before procedure. Patient has an appointment with me after the procedure. She is agreeable to current plan of care and verbalizes understanding of instructions. She was given the opportunity to ask questions and all questions answered thank you for allowing me to participate in care Coding Level of Care Code Est Pt Level 3 (60829) Diagnoses Family history of colon cancer Z80.0 Gastroesophageal reflux disease, unspecified whether esophagitis present K21.9 Esophagitis presence: esophagitis presence not specified Screen for colon cancer Z12.11 Time Spent (min) 30 Comment 20 minutes spent with patient and additional 10 minutes spent reviewing her records
[2024-03-20 11:39] VITALS: BP 122/66; PULSE 78; O2SAT 97; BMI 45.2
== END 2024-03-20 16:26 | disposition home or self-care (01) ==
PROVIDERS: PCP Internal Medicine; Visit Provider Nurse Practitioner Family
DX: K21.9 Gastro-esophageal reflux disease without esophagitis (principal); Z12.11 Encounter for screening for malignant neoplasm of colon; Z80.0 Family history of malignant neoplasm of digestive organs
CPT/HCPCS: 99213

== ENCOUNTER → 2024-03-20 11:32 | Outpatient (BNVA) | payer OTHER, SELFPAY | PROVIDERS: PCP Internal Medicine; Visit Provider Nurse Practitioner Family | DX: Z12.11 Encounter for screening for malignant neoplasm of colon (principal); K21.9 Gastro-esophageal reflux disease without esophagitis; Z80.0 Family history of malignant neoplasm of digestive organs | CPT/HCPCS: 99212 ==

== ENCOUNTER 2024-03-30 12:43 | Outpatient (AMB) | payer OTHER, SELFPAY ==
[2024-03-30 12:53] VITALS: BP 114/72; PULSE 58; BMI 44.7
--- NOTE | 2024-03-30 12:53 | MHC.OFFVIS ---
Vital Signs 03/30/24 12:53 Height 5 ft 2 in Weight 244 lb 4.355 oz BMI 44.7 BP 114/72 Blood Pressure Location Rt brachial Position Sitting Pulse 58 Pulse Source Pulse Oximeter Intake Visit Reasons: 4 mth f/up labs Cinder Block Maker Required: Yes Cinder Block Maker Language: Estimating Manager Name: voice chapin [id number] Allergies naproxen Allergy (Severe, Verified 03/30/24 12:56) muscle aches sertraline Allergy (Severe, Verified 03/30/24 12:56) muscle aches amoxicillin [From Augmentin] Allergy (Mild, Verified 03/30/24 12:56) Unknown clavulanic acid [From Augmentin] Allergy (Mild, Verified 03/30/24 12:56) Unknown Medication List - Last Reconciled 03/30/24 by RAO Blanton apixaban (Eliquis) 5 mg PO BID carvedilol 6.25 mg PO BID 90 days cholecalciferol (vitamin D3) (Vitamin D3) 25 mcg PO DAILY compress.stocking,knee,reg,med 15-20 cm diclofenac sodium 1% (Aleve (diclofenac)) 2 grams topical QID PRN famotidine 20 mg PO BEDTIME furosemide 20 mg PO DAILY 90 days gabapentin 300 mg PO BEDTIME levalbuterol tartrate 45 mcg/actuation (Xopenex HFA) 2 puffs inhalation Q6H PRN 30 days montelukast 10 mg PO DAILY nebulizers As directed pantoprazole 40 mg PO DAILY [recliner As directed] Shower Chair As directed triamcinolone acetonide 0.5% 1 appl topical BID PRN 30 days HPI HPI 4 mth f/up labs: Details: Sarah is a 64-year-old female past medical history of hyperlipidemia, sleep apnea with CPAP use, paroxysmal atrial fibrillation, epistaxis who presents for follow-up. Today she reports that she has noticed 2 episodes of mid chest discomfort along with some shortness of breath. One episode happened when she was washing dishes. Another episode happened when she was sitting in sikhism. She has been walking and climbing stairs without any chest discomfort. She does notice occasional heart palpitations, usually lasting for a few seconds before resolving. No sustained rapid or irregular rates. No shortness of breath at other times, no PND, orthopnea or edema. No lightheadedness, presyncope, syncope, falls. She is mostly sedentary. Ambulates with a cane. No epistaxis since starting the blood thinner. Takes all meds as directed. Certified hot dog vender used. [facility] Medical History Dyspnea Swelling of lower extremity Gross hematuria Onychomycosis Polyarthralgia Chronic back pain Migraine Hypovitaminosis D Paroxysmal atrial fibrillation Morbid obesity with BMI of 40.0-44.9, adult Sinusitis GERD (gastroesophageal reflux disease) Pure hypercholesterolemia Obesity JOHN on CPAP Asthma Surgical History Hx of colonoscopy History of pterygium excision History of total abdominal hysterectomy and bilateral salpingo-oophorectomy History of section History of appendectomy Family History Father CVD (cardiovascular disease) Mother Hypertension Brother Colon cancer Sister Colon cancer Thyroid cancer Sister Lupus Maternal Aunt Breast cancer Family/Other FH: mental illness Social History Housing: Apartment Alcohol intake: never Patient Tobacco Use Status: Never used Tobacco e-Cigarette/Vaping Use: Never Used Second Hand Smoke Exposure: No service: No Current occupational status: disabled Cognitive needs: No Hearing needs: No Vision needs: Yes Review of Systems Const All systems reviewed & are unremarkable except as noted in HPI and below ENT Denies dizziness Card Reports chest pain, Denies chest pain at rest, Denies chest pain with activity, Denies rapid heart rate, Denies pedal edema, Denies edema, Denies leg edema, Denies lightheadedness, Denies palpitations, Reports dyspnea, Denies dyspnea on exertion and Denies orthopnea Resp Denies cough, Reports dyspnea and Denies dyspnea on exertion GI Denies hematochezia and Denies change in stool character Musc Denies abnormal gait, Denies limited range of motion, Denies muscle cramps, Denies muscle weakness, Denies numbness, Denies radiating pain into limb, Denies stiffness and Denies tingling Neuro Denies abnormal gait, Denies dizziness, Denies numbness and Denies tingling Endo Denies palpitations Physical Exam Vital Signs: BMI result Body Mass Index 44.7 Const Other: morbidly obese General: cooperative, healthy appearing, comfortable and no acute distress Orientation/consciousness: patient oriented x3 Neck Neck: Yes normal visual inspection Chest Chest palpation & inspection: normal inspection of the chest Resp Effort & Inspection: normal respiratory effort Auscultation: clear to auscultation bilaterally, no rales, no rhonchi and no wheezes Cardio Rate: regular rate Rhythm: regular rhythm Heart sounds: S1 normal heart sound present, S2 normal heart sound present, no murmurs and no rubs Skin General skin exam: no rashes or lesions noted Neuro General: patient oriented x3 Extrem Other: obese, soft, puffy General: Yes normal to inspection Psych Appearance: grossly normal Mental Status: mental status grossly normal Speech and movement: Normal speech and movement present Quality Reporting (2019) Adult ([facility] 138/05/02/68) Smoking risk assessment performed?: Yes Patient Tobacco Use Status: Never used Tobacco Assessment & Plan Assessment & Plan (1) Paroxysmal atrial fibrillation: Code(s): I48.0 - Paroxysmal atrial fibrillation Category: Medical Plan: History of paroxysmal atrial fibrillation. She does report brief palpitations, no sustained rapid or irregular rates. On carvedilol for heart rate control. On Eliquis for anticoagulation. Prior issues with epistaxis but none since starting Eliquis. Last Holter in 2021 did not show any atrial fibrillation. Will recheck a Holter prior to her next visit to see if her palpitations correlate with PAF. No med changes made at this time. Cardiology office visit 6 months, sooner if needed. (2) JOHN on CPAP: Code(s): G47.33 - Obstructive sleep apnea (adult) (pediatric); Z99.89 - Dependence on other enabling machines and devices Category: Medical Plan: Compliant (3) Morbid obesity with BMI of 40.0-44.9, adult: Code(s): E66.01 - Morbid (severe) obesity due to excess calories; Z68.41 - Body mass index [BMI] 40.0-44.9, adult Category: Medical Plan: Benefit of weight reduction reviewed with her. Consider referral to bariatric program. (4) Chest discomfort: Code(s): R07.89 - Other chest pain Category: Medical Plan: Reports of 2 episodes of vague chest discomfort along with shortness of breath. One occurred while washing dishes and one occurred while sitting in sikhism. Episodes lasted several minutes before resolving. No exertional chest discomfort or shortness of breath reported. She is mostly sedentary. Last echo on 06/13/2023 which was normal study. Will order a pharmacological nuclear stress test to evaluate for any ischemia. She will not be able to walk on the treadmill, she ambulates with a cane. Plan to call her with results and arrange for sooner appointment to this office if needed. Signs and symptoms of angina reviewed with her. Emergency care if warranted. Plan Time spent on chart review, documentation, interview and assessment Coding Level of Care Code Est Pt Level 4 (27810) Complex EM visit Add On G2211 Diagnoses Paroxysmal atrial fibrillation I48.0 JOHN on CPAP G47.33; Z99.89 Morbid obesity with BMI of 40.0-44.9, adult E66.01; Z68.41 Chest discomfort R07.89 Time Spent (min) 28
== END 2024-03-30 13:22 | disposition home or self-care (01) ==
PROVIDERS: PCP Internal Medicine; Visit Provider Nurse Practitioner Family
DX: I48.0 Paroxysmal atrial fibrillation (principal); G47.33 Obstructive sleep apnea (adult) (pediatric); Z99.89 Dependence on other enabling machines and devices; E66.01 Morbid (severe) obesity due to excess calories; Z68.41 Body mass index [BMI] 40.0-44.9, adult; R07.89 Other chest pain
CPT/HCPCS: 99214; G2211

== ENCOUNTER → 2024-03-30 12:43 | Outpatient (BNVA) | payer OTHER, SELFPAY | PROVIDERS: PCP Internal Medicine; Visit Provider Nurse Practitioner Family | DX: I48.0 Paroxysmal atrial fibrillation (principal); R07.89 Other chest pain; G47.33 Obstructive sleep apnea (adult) (pediatric); E66.01 Morbid (severe) obesity due to excess calories; Z99.89 Dependence on other enabling machines and devices; Z68.41 Body mass index [BMI] 40.0-44.9, adult | CPT/HCPCS: 99212 ==

== ENCOUNTER 2024-05-09 09:26 | Outpatient (REF) | payer OTHER, SELFPAY ==
--- NOTE | ~2024-05-09 | XR_ITS ---
EXAMINATION: XR CHEST 2 VIEWS HISTORY: R06.09 - Other forms of dyspnea COMPARISON: Comparison is made with the prior examination dated 06/06/2023. FINDINGS: PA and lateral views of the chest are submitted. The lungs are expanded and clear. There is no pleural effusion, pneumothorax, or pulmonary vascular congestion. The heart is normal in size. There is a small hiatal hernia. The bones are intact. XR/XR chest 2V IMPRESSION: Small hiatal hernia. No acute cardiopulmonary abnormality. Electronically signed by: Yann Perez MD 05/11/2024 09:55 AM EST
--- NOTE | ~2024-05-09 | XR_ITS ---
EXAMINATION: XR FOOT 1-2 VIEWS LEFT HISTORY: L84 - Corns and callosities COMPARISON: Comparison is made with the prior examination dated 12/06/2015. FINDINGS: Three views of the left foot are submitted. Osseous mineralization is normal. There is no fracture or dislocation. The joint spaces are preserved. Again seen is a small plantar calcaneal spur. The soft tissues are unremarkable. XR/XR foot LT 2V IMPRESSION: Small plantar calcaneal spur. Otherwise unremarkable examination of the left foot. Electronically signed by: Yann Perez MD 05/11/2024 09:48 AM EST
== END 2024-05-09 09:27 | disposition home or self-care (01) ==
LOC: HO.XRAY 09:26
PROVIDERS: PCP Internal Medicine; Referring Provider Internal Medicine; Visit Provider Hospitalist
DX: L84 Corns and callosities (principal); R06.09 Other forms of dyspnea
CPT/HCPCS: 71046; 73620

== ENCOUNTER → 2024-05-09 09:33 | Outpatient (BNV) | payer OTHER, SELFPAY | PROVIDERS: PCP Internal Medicine; Referring Provider Internal Medicine; Visit Provider Radiology Diagnostic Radiology | DX: R06.09 Other forms of dyspnea (principal); M77.32 Calcaneal spur, left foot; L84 Corns and callosities | CPT/HCPCS: 71046; 73620 ==

== ENCOUNTER 2024-07-21 16:56 | Emergency (ER) | payer OTHER, SELFPAY ==
--- NOTE | ~2024-07-21 | XR_ITS ---
CLINICAL HISTORY: Chest pain Chest Radiographs, 2 views Comparison: 05/09/24 Findings: No cardiomegaly. Normal mediastinal contours. No pneumothorax. No opacity. No pleural effusion. Hiatal hernia. Normal upper abdomen. No acute fracture. Impression: No acute findings. This document has been electronically signed by: Hilda Benavides MD on 07/21/2024 18:08:56
--- NOTE | 2024-07-21 17:04 | ECG_ITS ---
Test Reason : CHEST PAIN Blood Pressure : */* mmHG Vent. Rate : 66 BPM Atrial Rate : 66 BPM P-R Int : 146 ms QRS Dur : 82 ms QT Int : 396 ms P-R-T Axes : 37 35 42 degrees QTcB Int : 415 ms Normal sinus rhythm Normal ECG When compared with ECG of 21-Feb-2019 12:02, No significant change was found Referred By: Generic ED Physician Electronically Signed By: DYLAN PEACE MD
[2024-07-21 17:28] VITALS: BP 135/70; PULSE 71; RESP 18; TEMP 36.6; O2SAT 100; BMI 44.5
--- NOTE | 2024-07-21 17:32 | ED_ITS ---
HPI - General Adult General Chief complaint: Chest Pain Stated complaint: chest pain all day Time Seen by Provider: 07/21/24 21:15 Source: patient Limitations: language barrier History of Present Illness ED Provider: Deirdre Puente PA-C HPI narrative: 64-year-old female with a history of hypertension, hyperlipidemia, AFib on apixaban, obesity, GERD, sleep apnea, asthma, chronic pain, migraine who presents with chest pain since this morning. Pain over left upper anterior chest, worse with palpation of chest wall, movement of torso. Patient denies overuse injury, repetitive activity, trauma or heavy lifting. Denies recent cough or cold symptoms. Patient's family members states that she recently fell. Patient also complains of epigastric discomfort and a burning sensation in her central chest. Related Data Home Medications ?Medication ?Instructions ?Recorded ?Confirmed nebulizers 05/28/22 03/30/24 Previous Rx's ?Medication ?Instructions ?Recorded Shower Chair #1 ea 01/16/21 triamcinolone acetonide 0.5 % 1 appl topical BID PRN rash 30 01/24/23 topical cream days #15 grams diclofenac sodium 1 % topical gel 2 g topical QID PRN pain, severe 03/30/23 (Aleve (diclofenac)) #100 grams compress.stocking,knee,reg,med #2 ea 05/17/23 montelukast 10 mg tablet 10 mg PO DAILY #90 tabs 12/05/23 pantoprazole 40 mg tablet,delayed 40 mg PO DAILY #90 tabs 12/17/23 release carvedilol 6.25 mg tablet 6.25 mg PO BID 90 days #180 tabs 01/08/24 famotidine 20 mg tablet 20 mg PO BEDTIME #90 tabs 02/18/24 levalbuterol tartrate 45 2 puff inhalation Q6H PRN 03/05/24 mcg/actuation aerosol inhaler shortness of breath or wheezing 30 (Xopenex HFA) days #15 grams recliner #1 ea 04/25/24 furosemide 20 mg tablet 20 mg PO DAILY 90 days #90 tabs 05/31/24 apixaban 5 mg tablet (Eliquis) 5 mg PO BID #60 tabs 06/01/24 cholecalciferol (vitamin D3) 25 25 mcg PO DAILY #30 tabs 04/21/25 mcg (1,000 unit) tablet (Vitamin D3) gabapentin 300 mg capsule 300 mg PO BEDTIME #30 caps 07/21/24 sucralfate 100 mg/mL oral 10 ml PO QID PRN reflux #300 mL 07/21/24 suspension (Carafate) Allergies Allergy/AdvReac Type Severity Reaction Status Date / Time naproxen Allergy Severe muscle Verified 07/21/24 17:31 aches sertraline Allergy Severe muscle Verified 07/21/24 17:31 aches amoxicillin [From Augmentin] Allergy Mild Unknown Verified 07/21/24 17:31 clavulanic acid Allergy Mild Unknown Verified 07/21/24 17:31 [From Augmentin] Review of Systems 2 Review of Systems: Yes all other systems are reviewed and are negative Constitutional: Constitutional: Denies fatigue and Denies fever(s) Cardiovascular: Cardiovascular: Reports chest pain and Denies dyspnea Respiratory: Respiratory: Denies cough and Denies dyspnea Gastrointestinal: Gastrointestinal: Reports abdominal pain, Reports dyspepsia, Denies diarrhea, Denies nausea and Denies vomiting Endocrine: Endocrine: Denies fatigue PMFSH Past Medical History Attestation statement: The following information was validated with the patient. Medical History Dyspnea Swelling of lower extremity Gross hematuria Onychomycosis Polyarthralgia Chronic back pain Migraine Hypovitaminosis D Paroxysmal atrial fibrillation Morbid obesity with BMI of 40.0-44.9, adult Sinusitis GERD (gastroesophageal reflux disease) Pure hypercholesterolemia Obesity JOHN on CPAP Asthma Surgical History Hx of colonoscopy History of pterygium excision History of total abdominal hysterectomy and bilateral salpingo-oophorectomy History of section History of appendectomy Family History Family History Father CVD (cardiovascular disease) Mother Hypertension Brother Colon cancer Sister Colon cancer Thyroid cancer Sister Lupus Maternal Aunt Breast cancer Family/Other FH: mental illness Social History Social History Housing: Apartment Alcohol intake: never Patient Tobacco Use Status: Never used Tobacco Smoked in Last 30 Days: No e-Cigarette/Vaping Use: Never Used Second Hand Smoke Exposure: No Use of substances other than those prescribed or required for medical reasons: No Advance Directives: No Advance Directives Information Provided: Yes service: No Current occupational status: disabled Cognitive needs: No Hearing needs: No Vision needs: Yes Physical Exam ED Vital Signs: Vital Signs - 24 hr 07/21/24 17:28 07/21/24 22:25 Temperature 97.9 F 97.4 F Pulse Rate 71 62 Respiratory Rate 18 18 Blood Pressure 135/70 136/63 Pulse Oximetry 100 98 Oxygen Delivery Method Room Air Room Air BMI result Body Mass Index 44.5 Const Other: Alert well-appearing Orientation/consciousness: patient oriented x3 Chest Other: Pain recreated with palpation of left upper anterior chest wall Resp Effort & Inspection: normal respiratory effort Cardio Other: Normal peripheral perfusion GI Other: Soft, nondistended, obese, nontender no guarding Skin Other: Warm dry no rash Neuro General: patient oriented x3, gait normal, no focal motor deficits and CN's II- XI intact bilaterally Psych Other: Cooperative Course Course Course Narrative: This is a rapid medical exam performed by Joanna Wells NP: Additional HPI, ROS, PE not included below will be deferred to primary provider. Patient is a 64-year-old female with history of migraine, paroxysmal AFib on apixaban, obesity, GERD, asthma, JOHN on CPAP presenting with complaint of abdominal and left-sided chest pain since yesterday. Describes as burning, worse with eating. Plan: EKG, labs, chest x-ray Medical Decision Making Medical Decision Making MDM Narrative: 64-year-old female with a history of hypertension, hyperlipidemia, AFib on apixaban, obesity, GERD, sleep apnea, asthma, chronic pain, migraine who presents with chest pain since this morning. Pain over left upper anterior chest, worse with palpation of chest wall, movement of torso. Patient denies overuse injury, repetitive activity, trauma or heavy lifting. Denies recent cough or cold symptoms. Patient's family members states that she recently fell. Patient also complains of epigastric discomfort and a burning sensation in her central chest. Problem: Age, hypertension, GERD, obesity, chronic pain History: Per patient I have considered the following differential diagnoses: ACS, chest wall strain, costochondritis, GERD, perforated peptic ulcer Plan: In regard to the patient's chest pain, it is consistent with chest wall pain/strain, however she can not recall a mechanism other than a recent fall, this is the likely source. We will send with home care instructions. In regard to the epigastric discomfort, she has a diagnosis of GERD, she is also having reflux symptoms. We will treat with Carafate. This is not a perforated peptic ulcer, there are no peritoneal signs on exam. She has not had preceding viral syndrome to suggest costochondritis. I have independently reviewed the following tests: Labs: No leukocytosis, not anemic, troponin negative, no electrolyte abnormalities, EKG: Normal sinus rhythm, rate of 66, no ischemic changes no ectopy QTC 415 Chest x-ray:Findings: No cardiomegaly. Normal mediastinal contours. No pneumothorax. No opacity. No pleural effusion. Hiatal hernia. Normal upper abdomen. No acute fracture. Impression: No acute findings. Lab Data 07/21/24 18:51 07/21/24 18:51 Labs: Lab Results 07/21/24 Range/Units 18:51 WBC 6.1 (4.8-10.8) X10*3/uL RBC 4.00 L (4.20-5.50) X10*6/uL Hgb 12.0 (12.0-16.0) g/dl Hct 35.7 L (37.0-47.0) % MCV 89.3 (80.0-98.0) fL MCH 30.0 (27.0-33.0) pg MCHC 33.6 (31.0-35.0) g/dl RDW 14.6 (11.0-16.0) % Plt Count 280 (160-400) X10*3/uL MPV 10.3 (9.4-12.3) fL Immature Gran % (Auto) 0.5 H (0.0-0.4) % Neut % (Auto) 40.1 L (45-73) % Lymph % (Auto) 45.1 H (20-40) % Williamson % (Auto) 11.0 (2-11) % Eos % (Auto) 2.5 (0-4) % Baso % (Auto) 0.8 (0-2) % Lymph # (Auto) 2.7 (1.2-4.9) X10*3/uL Williamson # (Auto) 0.7 (0.1-1.2) X10*3/uL Eos # (Auto) 0.2 (0.0-0.4) X10*3/uL Baso # (Auto) 0.1 (0.0-0.2) X10*3/uL Abs Immat Gran (auto) 0.03 (0.00-0.03) X10*3/uL Absolute Neuts (auto) 2.4 (2.0-8.3) x10*3/uL Absolute Nucleated RBC 0.000 (0.0-0.012) X10*3/uL Nucleated RBC % (auto) 0.0 (0.0-0.2) /100WBC Sodium 142 (135-145) mmol/L Potassium 4.1 (3.3-5.1) mmol/L Chloride 106 (96-108) mmol/L Carbon Dioxide 29 (22-29) mmol/L Anion Gap 11 L (12-20) BUN 18 H (9-16) mg/dL Creatinine 0.68 (0.5-1.4) mg/dL Estim Creat Clear Calc 95.3 Estimated GFR > 60 Random Glucose 94 (60-115) mg/dL Calcium 9.0 (8.4-10.2) mg/dL Magnesium 1.9 (1.6-2.6) mg/dL Total Bilirubin 0.2 (0.0-1.0) mg/dL AST 24 (5-31) U/L ALT 13 (0-31) U/L Alkaline Phosphatase 90 (39-117) U/L Troponin I High Sens < 2.7 (<3.5-17.0) ng/L B-Natriuretic Peptide 53 (<100) pg/mL Total Protein 7.1 (6.5-8.0) g/dL Albumin 3.6 (3.5-5.0) g/dL Discharge Plan Discharge Clinical Impression: Chest wall pain, Chronic GERD Patient Disposition: Home, Self-Care Instructions: Diet for Stomach Ulcers and Gastritis (ED), GERD (Gastroesophageal Reflux Disease) (ED), Chest Wall Pain (ED) Additional Instructions: All of your screening labs including a cardiac enzymes were normal. There were no concerning changes on the EKG in the chest x-ray is clear. Your chest pain is consistent with chest wall pain not cardiac pain. See home care instructions. As far as the burning sensation is concerned, this is likely poorly controlled acid reflux, you do have a diagnosis of GERD. See home care instructions. Use the Carafate as needed for upper abdominal discomfort. You received a dose overnight here in the emergency room. Things that you can do to help deter symptoms of acid reflux are listed below. Do not eat 3 hours before bed Do not eat large meals, instead eat small more frequent meals throughout the day Avoid foods such as fatty greasy food, acidic food, spicy food, caffeine, anything carbonated, alcohol Follow up with your primary care provider as needed. Prescriptions: New sucralfate [Carafate] 100 mg/mL suspension 10 ml PO QID PRN (Reason: reflux) Qty: 300 0RF Rx Instructions: swish in mouth and swallow; use after food/drink No Action (DME) [facility] See Rx Instructions .Route Qty: 1 0RF Rx Instructions: As directed triamcinolone acetonide 0.5 % cream 1 appl topical BID PRN (Reason: rash) 30 Days Qty: 15 6RF montelukast 10 mg tablet 10 mg PO DAILY Qty: 90 3RF carvedilol 6.25 mg tablet 6.25 mg PO BID 90 Days Qty: 180 3RF famotidine 20 mg tablet 20 mg PO BEDTIME Qty: 90 1RF levalbuterol tartrate [Xopenex HFA] 45 mcg/actuation HFA aerosol inhaler 2 puff inhalation Q6H PRN (Reason: shortness of breath or wheezing) 30 Days Qty: 15 11RF (DME) recliner See Rx Instructions .Route .MEDSUPPLY Qty: 1 0RF Rx Instructions: As directed furosemide 20 mg tablet 20 mg PO DAILY 90 Days Qty: 90 1RF Eliquis 5 mg tablet 5 mg PO BID Qty: 60 5RF cholecalciferol (vitamin D3) [Vitamin D3] 25 mcg (1,000 unit) tablet 25 mcg PO DAILY Qty: 30 1RF gabapentin 300 mg capsule 300 mg PO BEDTIME Qty: 30 6RF diclofenac sodium [Aleve (diclofenac)] 1 % gel 2 g topical QID PRN (Reason: pain, severe) Qty: 100 0RF Rx Instructions: apply to bilateral knee's (DME) nebulizers Misc See Rx Instructions .Route Rx Instructions: As directed (DME) compress.stocking,knee,reg,med Misc See Rx Instructions .Route Qty: 2 0RF Rx Instructions: 15-20 cm pantoprazole 40 mg tablet,delayed release (DR/EC) 40 mg PO DAILY Qty: 90 2RF Print Language: Citizen Of [place]
[2024-07-21 18:54] LABS: MANUAL DIFF FLAG NO
[2024-07-21 18:57] LABS: Basophils Absolute Auto 0.1 X10*3/uL (0.0-0.2); Basophils Percent Auto 0.8 % (0-2); Eosinophils Absolute Auto 0.2 X10*3/uL (0.0-0.4); Eosinophils Percent Auto 2.5 % (0-4); Hematocrit 35.7 % (37.0-47.0); Imm Gran Abs Auto 0.03 X10*3/uL (0.00-0.03); Imm Gran Pct Auto 0.5 % (0.0-0.4); Lymphocytes Absolute Auto 2.7 X10*3/uL (1.2-4.9); Lymphocytes Percent Auto 45.1 % (20-40); Mean Corpuscular HGB Conc 33.6 g/dl (31.0-35.0); Mean Corpuscular Volume 89.3 fL (80.0-98.0); Mean Platelet Volume 10.3 fL (9.4-12.3); Monocytes Absolute Auto 0.7 X10*3/uL (0.1-1.2); Neutrophils Absolute Auto 2.4 x10*3/uL (2.0-8.3); Neutrophils Percent Auto 40.1 % (45-73); Platelet Count 280 X10*3/uL (160-400); Red Cell Distribution Width 14.6 % (11.0-16.0); White Blood Count 6.1 X10*3/uL (4.8-10.8)
[2024-07-21 19:08] LABS: Alanine Aminotransferase 13 U/L (0-31); Albumin Level 3.6 g/dL (3.5-5.0); Alkaline Phosphatase 90 U/L (39-117); Anion Gap 11 (12-20); Aspartate Amino Transferase 24 U/L (5-31); Bilirubin Total 0.2 mg/dL (0.0-1.0); Blood Urea Nitrogen 18 mg/dL (9-16); Carbon Dioxide 29 mmol/L (22-29); Chloride 106 mmol/L (96-108); Creatinine Clr Calc Pharmacy 95.3; Estimated Glomerular Filt Rate > 60; Glucose Random 94 mg/dL (60-115); Magnesium 1.9 mg/dL (1.6-2.6); Potassium 4.1 mmol/L (3.3-5.1); Sodium 142 mmol/L (135-145); Total Protein 7.1 g/dL (6.5-8.0)
[2024-07-21 19:14] LABS: B Type Natriuretic Peptide 53 pg/mL (<100)
[2024-07-21 19:17] LABS: Troponin-I High Sensitivity < 2.7 ng/L (<3.5-17.0)
--- OUTSIDE RECORDS SUMMARY | 2024-07-21 19:49 | XMS_ITS | Clinical Summary ---
Author Organization 175 [facility] Address [address] [place] [address] Phone Care Team Providers Care Paper Production Engineer Name Role Phone Simran Thompson MD Primary Care Provider [phone] Allergies Active Allergy Reactions Criticality Noted Date Comments Amoxicillin-Pot Clavulanate 05/13/19 25 Medications ammonium lactate (AmLactin) 12 % lotion Apply topically if needed for dry skin. 400 g 5 05/15/19 26 Active ciclopirox (PENLAC) 8 % solution Apply topically at bedtime. Apply over nail and surrounding skin. Apply daily over previous coat. After seven (7) days, may remove with alcohol and continue cycle. 6.6 mL 3 5 08/13/19 25 Active Encounters Date Type Department Care Team Description 06/22/2024 10:45 AM EDT Office Visit Orthopedic [place] [id number] [address] Dc Payne DPM Plantar fascial fibromatosis (Primary Dx); Metatarsalgia of right foot; Metatarsalgia of left foot; Verruca plantaris; Dermatophytosis of nail 05/14/2024 Telephone Orthopedic Surgery [place] [address] [address] Dc Payne DPM 05/12/2024 10:45 AM EST Consult Orthopedic [facility] [address] [address] Dc aPyne DPM Plantar fascial fibromatosis (Primary Dx); Corns and callosities; Verruca plantaris; Dermatophytosis of nail; Pain in toe of right foot; Pain in toe of left foot; Bilateral femoral artery stenosis (CMS/HCC V24) from Last 3 Months Social History Tobacco Use Types Packs/Day Years Used Date Smoking Tobacco: Never Assessed Comments Unknown Sex and Gender Information Value Date Recorded Sex Assigned at Not on file Legal Sex Female 9:24 AM EST Gender Identity Not on file Sexual Orientation Not on file Last Filed Vital Signs Vital Sign Reading Time Taken Comments Blood Pressure - - Pulse - - Temperature - - Respiratory Rate - - Oxygen Saturation - - Inhaled Oxygen Concentration - - Weight 108 kg (239 lb) 05/12/2024 11:38 AM EST Height 157.5 cm (5' 2 ) 05/12/2024 11:38 AM EST Body Mass Index 43.71 05/12/2024 11:38 AM EST Plan of Treatment Upcoming Encounters Date Type Department Care Team ([facility] st Contact Info) Description 07/28/2024 10:30 AM EDT Office Visit Orthopedic Surgery - [place] [address] [phone] Dc Payne, DPM [address] [address] Health Maintenance Due Date Last Done Comments Breast Cancer Screening 1960 Zoster Vaccines (1 of 2) 02/03/2008 RSV Immunization Adult Patients (1 - Risk 60-74 years 1-dose series) 2018 COVID-19 Vaccine ( season) 2023 04/03/2021, 02/28/2021 Cholesterol Screening (Lipid Panel) 03/05/2024 Colorectal Cancer Screening: Colonoscopy 03/05/2024 Depression Screening 03/05/2024 Falls Risk Assessment 03/05/2024 Hepatitis C Screening 03/05/2024 Medicare Annual Wellness Visit 03/05/2024 Osteoporosis Screening (Bone Density Screening) 03/05/2024 Social Influencers of Health Screening 03/05/2024 Influenza Vaccine (Season Ended) 2024 12/24/2020, 12/23/2019, 02/03/2019, Additional history exists DTaP,Tdap,and Td Vaccines (4 - Td or Tdap) 12/10/2030 12/10/2020, 04/06/2010, 04/07/2007 Hepatitis A Vaccines Aged Out 11/28/2015 No long er eligible based on patient's age to complete this topic Pneumococcal Vaccine: 50+ Years Completed 11/20/2022 HIB Vaccines Aged Out No longer eligi ble based on patient's age to complete this topic HPV Vaccines Aged Out No longer eligi ble based on patient's age to complete this topic Hepatitis B Vaccines Aged Out No long er eligible based on patient's age to complete this topic IPV Vaccines Aged Out No longer eligi ble based on patient's age to complete this topic MMR Vaccines Aged Out No longer eligi ble based on patient's age to complete this topic Meningococcal ACWY Vaccine Aged Out N o longer eligible based on patient's age to complete this topic Meningococcal B Vaccine Aged Out No l onger eligible based on patient's age to complete this topic RSV Immunization Patients Under 20 months Aged Out No longer eligible based on patient's age to complete this topic Varicella Vaccines Aged Out No longer eligible based on patient's age [place] [id number] [facility] MEDICARE Member Subscriber Plan / Payer (Ef fective 2023-Present) Name:RondonSarah Relation to Subscriber:Self Name:Sarah Rondon Payer ID:[id number] Group ID:[id number] Type:Not on file Address: [place] [address] [place] [phone] Care Teams Paper Production Engineer Relationship Specialty Start Date End Date Simran Thompson MD [address] [place] [address] , [address] Physician Associ D/B/A: [facility] [place] PCP - General Internal Medicine 09/05/16
--- OUTSIDE RECORDS SUMMARY | 2024-07-21 19:49 | XMS_ITS | Data Portability ---
Author Organization [place] - [facility], Allergy Address [address] [address] Care Team Providers Care Hand Box Folder Name Role Phone DAVID MARTINEZ Primary Care Provider Assessment Encounter Date Assessment Date Assessment LastModified by Organization Details LastModified Time 10/09/2023 10/09/2023 Patient with 4 episodes of epistaxis over the last 6 months. The episodes were associated with headache first. She has not had any episodes in the last 2 months and denies any breathing difficulties. I do not see any evidence of nasal mass. She has no breathing difficulties there is mild septal deviation to the right side. I wonder whether she was having episodes of hypertension that could be triggering the bleeding. I have suggested saline solution 3-4 times daily, K-Y jelly in the nose at night and her granddaughter will monitor her blood pressure at home. [email or web address] Not available 10/09/2023 15:42:40 Plan of Treatment Reminders Order Date Submit Date Provider Last Modified By Organization Details Last Modified Time Details Appointments None record ed. Lab None record ed. Referral None record ed. Procedures None record ed. Surgeries None record ed. Imaging None record ed. Medication Orders None record ed. Patient TargetsNo targets recorded. Patient Instructions Encounter Date Encounter Id Patient Instructions Last Modified By Organization Details Last Modified Time 10/09/2023 [id number] nosebleed information [email or web address] Not available 10/09/2023 15:43:48 Reason for Referral None Reported. Problems Name Problem SNOMED Code Status Onset Date Resolution Date Notes Provider Name and Address Organization Details Recorded Time Bleeding from nose 551145332 Active 024 SOHAM EPSTEIN MD 100 [facility] 100, [facility] [place], [address] , [place] - [facility] 4 15:41:04 Deviated nasal septum 461320979 Active 024 SOHAM EPSTEIN MD [address] [place] [address], [facility] [place], [address] , [place] - [facility] 4 15:41:23 Problem Notes None recorded. Procedures Surgical History Date Name Laterality Status Provider Name and Address Organization Details Recorded Time Eye Surgery completed Mod[place] Gregg [place] [facility] 10/09/2023 15:14:12 delivery completed Mod[place] Gregg [place] - [facility] 10/09/2023 15:14:31 hysterectomy completed [place] Gregg [place] - [facility] 10/09/2023 15:15:04 appendectomy completed [place] Gregg [place] - [facility] 10/09/2023 15:15:13 Imaging Results None recorded. Procedure Notes None recorded. Medical Equipment None Reported. Allergies Allergen ID Allergen Name Allergen Category Reaction Reaction Severity Criticality Documentation Date Start Date Code Code System Note Provider Name and Address Organization Details Recorded Time 115914 Augmentin medicatio n Not available Not available Not available 10/09/2023 85794 2 RxNorm Modesto alexander [place] - [facility] 15:14:50 Medications Name Sig Start Date Stop Date Status Note LastModified by Organization Details LastModified Time atorvastati n 40 mg tablet TAKE 1 TABLET BY MOUTH EVERYDAY AT BEDTIME active Not Available Not Available No t Available carvedilol 6.25 mg tablet TAKE 1 TABLET BY MOUTH TWICE A DAY active Not Available Not Available No t Available triamcinolo ne acetonide 0.5 % topical cream APPLY TOPICALLY 2 TIMES A DAY NEEDED FOR RASH FOR 30 DAYS active Not Available Not Available No t Available prednisone 20 mg tablet TAKE 2 TABLETS BY MOUTH EVERY DAY FOR 5 DAYS 10/08 completed Not Available Not Available Not Available aspirin 81 mg tablet,leila yed release TAKE 1 TABLET BY MOUTH EVERY DAY 10/08 completed Not Available Not Available Not Available calcium 500 mg (as calcium carbonate 1,250 mg) tablet TAKE 2 TABLETS BY MOUTH EVERY DAY active Not Available Not Available No t Available pantoprazol e 40 mg tablet,leila yed release TAKE 1 TABLET BY MOUTH EVERY DAY active Not Available Not Available No t Available gabapentin 300 mg capsule TAKE 1 CAPSULE BY MOUTH EVERYDAY AT BEDTIME active Not Available Not Available No t Available montelukast 10 mg tablet TAKE 1 TABLET BY MOUTH EVERY DAY active Not Available Not Available No t Available furosemide 20 mg tablet TAKE 1 TABLET BY MOUTH EVERY DAY FOR 90 DAYS active Not Available Not Available No t Available Ventolin HFA 90 mcg/actuati on aerosol inhaler INHALE 2 PUFFS EVERY 6 HOURS NEEDED FOR WHEEZE OR FOR SHORTNESS OF BREATH active Not Available Not Available No t Available Laxative (bisacodyl) 5 mg tablet,leila yed release TAKE 4 TABLETS BY MOUTH AT NOON THE DAY BEFORE YOUR COLONOSCO PY active Not Available Not Available No t Available azithromyci n 500 mg tablet TAKE 1 TABLET BY [facility]UH DAILY FOR 3 DAYS active Not Available Not Available No t Available cholecalcif tara (vitamin D3) 25 mcg (1,000 unit) tablet TAKE 1 TABLET BY MOUTH EVERY DAY active Not Available Not Available No t Available diclofenac 1 % topical gel APPLY 2 GRAMS TOPICALLY TO BILATERAL KNEE'S 4 TIMES A DAY NEEDED FOR SEVERE PAIN active Not Available Not Available No t Available Gavilax 17 gram/dose oral powder 238 G ORALLY ONCE DIRECTED BY GASTROENT EROLOGY DEPARTMEN T AT [facility] 10/08 completed Not Available Not Available Not Available Flowflex COVID-19 Antigen Home Test kit USE DIRECTED active Not Available Not Available No t Available Vitals Date Recorded Body height Body mass index (BMI) Body weight Provider Name and Address Organization Details Last Updated DateTime 10/09/2023 157.48 cm 42.6 kg/m2 319306.02 g Modseto Gregg [place] [facility] 10/09/2023 15:19:48 Social History None recorded. Functional Status None recorded. Mental Status None recorded. Family History Nothing Reported Notes:mini stroke Medical History Condition Response Heart Problems Y Arthritis Y Migraines Y Stroke Y Asthma Y Gynecological HistoryNo gynecological history recorded. Obstetrics History GPAL:G 0 P 0 0 0 0 Past Encounters Encounter ID Performer Location Encounter Start Date Encounter Closed Date Diagnosis/Indication Diagnosis SNOMED-CT Code Diagnosis ICD10 Code Diagnosis Note [id number] SOHAM EPSTEIN MD [facility] [address] [place] [address] 10/09/2023 14:27:05 10/09/2023 15:50:16 Bleeding from nose 114831982 R04.0 Long-term current use of antiplatelet drug 7418775090 55267 Z79.02 Deviated nasal septum 12 4525093 J34.2 Health Concerns Section Related Observation LastModified by Organization Detai ls LastModified Time None Recorded Concern Status LastModified by Organization Details LastModified Time None Recorded Advance Directives Directive None Recorded Payers Insurance Date Sequence Insurance Name Policy Number Policy Rivera Covered Member ID Rivera Member ID Guarantor Name 10/09/2023 1 [facility] - DOS ON OR AFTER 2022 - MEDICARE ADVANTAGE [place] (MEDICARE REPLACEMENT/ADV ANTAGE - PPO) Sarah Anderson [id number] Sarah Anderson Notes Date Note Type Note Provider Name and Address Organization Details Recorded Time 10/09/2023 text/html Seen with grand-daughter who translates. Patient reports that when she does get a bout of epistaxis she gets a headache. Her last episode was over 2 months ago. No nasal congestion or breathing difficulties. She has a history of arrhythmia, lower extremity edema migraines and prior CVA. She is on aspirin. Has had 4 episodes of bleeding in last 6 months SOHAM RODRIGUEZ MD 100 [facility],[place] [address], [place], [address], [facility] - [facility] 10/09/2023 15:43:51 OBGyn Episode No OBEpisode recorded.
--- OUTSIDE RECORDS SUMMARY | 2024-07-21 19:49 | XMS_ITS | Clinical Summary ---
Author Organization [employer] Address [address] [facility] [address] [place] [address] Care Team Providers Care Wire Rigger Name Role Phone Unavailable Primary Care Provider Unavailabl e Social History Tobacco Use Types Packs/Day Years Used Date Smoking Tobacco: Never Assessed Comments Unknown Sex and Gender Information Value Date Recorded Sex Assigned at Female 01/08/2022 10:18 AM EDT Legal Sex Female 10:18 AM EDT Gender Identity Female 01/08/2022 10:18 AM EDT Sexual Orientation Straight 01/08/2022 10 :18 AM EDT Plan of Treatment Health Maintenance Due Date Last Done Comments CT Colonography 1958 Colonoscopy 1958 Colorectal Cancer Screening 1958 Depression Screening 1958 FIT DNA/Cologuard 1958 FIT 1958 FOBT 1958 Sigmoidoscopy 1958 Alcohol/Substance Use Screening 1970 Tobacco Screening 1970 Mammogram 1998 Pneumococcal Vaccine: 50+ Years (1 of 1 - PCV) 02/03/2008 Zoster Vaccines (1 of 2) 02/03/2008 DTaP/Tdap/Td Vaccines (2 - Td or Tdap) 04/06/2020 04/06/2010, 04/07/2007 COVID-19 Vaccine (1 - season) 2023 Influenza Vaccine (#1) 2023 6, 01/15/2014, 02/11/2013, Additional history exists RSV Patients and Patients Aged 60 years or older (1 - 1-dose 75+ series) 2033 Hepatitis A Vaccines Aged Out 11/28/2015 No long er eligible based on patient's age to complete this topic HIB Vaccines Aged Out No longer eligi [...] patient's age to complete this topic Meningococcal Vaccine Aged Out No allyssa jesús eligible based on patient's age to complete this topic RSV under 20 months Aged Out No longe r eligible based on patient's age to complete this topic Rotavirus Vaccines Aged Out No longer eligible based on patient's age to complete this topic
--- OUTSIDE RECORDS SUMMARY | 2024-07-21 19:49 | XMS_ITS | Encounter Summary ---
Author Organization [facility] Address [address] [facility] [address] [place] [address] Care Team Providers Care Instrument Lens Grinder Apprentice Name Role Phone Unavailable Primary Care Provider Unavailabl e Encounter Details Date Type Department Care Team (Latest Contact Info) Description 09/05/2018 Abstract C CONVERSIONS Dental, Provider, DDS Social History Tobacco Use Types Packs/Day Years Used Date Smoking Tobacco: Never Assessed Comments Unknown Sex and Gender Information Value Date Recorded Sex Assigned at Female 01/08/2022 10:18 AM EDT Legal Sex Female 10:18 AM EDT Gender Identity Female 01/08/2022 10:18 AM EDT Sexual Orientation Straight 01/08/2022 10 :18 AM EDT documented as of this encounter Plan of Treatment Not on file documented as of this encounter Visit Diagnoses Not on filedocumented in this encounter
--- OUTSIDE RECORDS SUMMARY | 2024-07-21 19:49 | XMS_ITS | Encounter Summary ---
Author Organization [facility] Address [address] [facility] [address] [place] [address] Care Team Providers Care Elevating Grader Operator Name Role Phone Unavailable Primary Care Provider Unavailabl e Reason for Visit * Reason Onset Date Comments Appointment 06/13/2022 Encounter Details Date Type Department Care Team (Late st Contact Info) Description 06/13/2022 Telephone [facility] ADULT DENTAL [address] [place] [address] Syeda, Meghann [address] [place] [address] Appointment Social History Tobacco Use Types Packs/Day Years Used Date Smoking Tobacco: Never Assessed Comments Unknown Sex and Gender Information Value Date Recorded Sex Assigned at Female 01/08/2022 10:18 AM EDT Legal Sex Female 10:18 AM EDT Gender Identity Female 01/08/2022 10:18 AM EDT Sexual Orientation Straight 01/08/2022 10 :18 AM EDT documented as of this encounter Miscellaneous Notes * Telephone Encounter - Hanna Hernández - 06/13/2022 2:56 PM EDT Patient on waitlist in [facility] since 08/2021 for cleaning exam and xrays and checking in on status of appt DR documented in this encounter Plan of Treatment Not on file documented as of this encounter Visit Diagnoses Not on filedocumented in this encounter
[2024-07-21 22:25] VITALS: BP 136/63; PULSE 62; RESP 18; TEMP 36.3; O2SAT 98
[2024-07-21] MEDS: Sucralfate Oral Suspension 1 GM/10 ML ORAL.SUSP PO (23:10)
[2024-07-21 23:13] VITALS: BP 136/63; PULSE 62; RESP 18; TEMP 36.3; O2SAT 98
== END 2024-07-21 23:13 | disposition home or self-care (01) ==
PROVIDERS: Registered Nurse Emergency; Emergency Provider Emergency Medicine; PCP Internal Medicine
DX: R07.89 Other chest pain (principal); K21.9 Gastro-esophageal reflux disease without esophagitis; I10 Essential (primary) hypertension; E78.00 Pure hypercholesterolemia, unspecified; I48.0 Paroxysmal atrial fibrillation; Z79.01 Long term (current) use of anticoagulants; Z79.899 Other long term (current) drug therapy
CPT/HCPCS: 36415; 71046; 80053; 83735; 83880; 84484; 85025; 93005; 99283; 99284

== ENCOUNTER → 2024-07-21 17:04 | Outpatient (BNV) | payer OTHER, SELFPAY | PROVIDERS: Emergency Provider Emergency Medicine; PCP Internal Medicine; Visit Provider Internal Medicine Cardiovascular Disease | DX: R07.9 Chest pain, unspecified (principal) | CPT/HCPCS: 93010 ==

== ENCOUNTER → 2024-07-21 17:33 | Outpatient (BNV) | payer OTHER, SELFPAY | PROVIDERS: PCP Internal Medicine; Visit Provider Radiology Diagnostic Radiology | DX: R07.9 Chest pain, unspecified (principal) | CPT/HCPCS: 71046 ==

== ENCOUNTER 2024-09-03 09:34 | Outpatient (AMB) | payer OTHER, SELFPAY ==
[2024-09-03 09:38] VITALS: BP 120/64; PULSE 72; O2SAT 96; BMI 43.7
--- NOTE | 2024-09-03 09:38 | MHC.OFFVIS ---
Vital Signs 09/03/24 09:38 Height 5 ft 2 in Weight 239 lb 3.225 oz BMI 43.7 BP 120/64 Blood Pressure Location Lt brachial Position Sitting Pulse 72 Pulse Source Pulse Oximeter Pulse Oximetry (%) 96 Oxygen Delivery Method Room Air Intake Visit Reasons: Obstructive sleep apnea Allergies naproxen Allergy (Severe, Verified 09/03/24 09:42) muscle aches sertraline Allergy (Severe, Verified 09/03/24 09:42) muscle aches amoxicillin (From Augmentin) Allergy (Mild, Verified 09/03/24 09:42) Unknown clavulanic acid (From Augmentin) Allergy (Mild, Verified 09/03/24 09:42) Unknown HPI Comments Details: The patient is a 64-year-old woman known history of asthma in addition to a cardiac history including atrial fibrillation and hypertension. She has been having worsening daytime drowsiness. Also complaining of headaches. In also with her cardiac history she did undergo a sleep study at the laboratory. It demonstrated that she did have eqks-ea-kwlnpvod obstructive sleep apnea. She also has significant desaturations down to 83%. She then underwent titration study recommended that she should start CPAP therapy. The CPAP therapy was affecting beneficial. Initially she started with a nasal mask but then switched over to a fullface mask that apparently work better. At this point we did go over the therapy for obstructive sleep apnea and with her cardiac history I did recommend she start CPAP therapy. She is agreeable to this and we will set her up with a local [employer] company. In the meantime she does complaint of nasal congestion also shortness of breath. She does have a history of asthma. She does have a rescue inhaler that she uses as needed. She has not had to use in the last week. Although she feels like she is getting more congested. 11/28/2021 the patient is here for a pulmonary follow-up visit. The patient overall has been doing relatively well. Although she is having increased daytime drowsiness. She start using the CPAP. She could not tolerated. She is also having issues with tachycardia and SVT. She will be followed up with a analytical engineer soon. Explained to her that this may be from untreated sleep apnea. The patient would like to hold off on the CPAP for now. Patient is no longer getting supplies likely based on the fact that she has been using it. If she does want to go back to using it she will have to probably get another sleep study to get reoccur intubated with a DME company. Once she wants to start using it she can always call the office so we can reset the machine to a pressure that she can not tolerate better. From a respiratory status the patient is doing relatively well. She is using her rescue inhaler on a regular basis usually on a daily basis. Therefore, at this point the patient will be started on maintenance inhaler with hopes that she does not require her rescue inhaler as often. The patient is agreeable to this. 05/28/2022 the patient is here for a pulmonary follow-up visit. The patient has been doing well from a respiratory status. Weight did send her prescription for Breo. She does not use it all the time. Explained to her that she should definitely use it routinely. She also has a rescue inhaler that she can use as needed. The patient is breathing well and denies any significant shortness of breath. Her main issue is her knee discomfort keeping her from being able to move exercise regularly. In addition to this the patient has not been using the CPAP. She rather not use it. She is waking up rested. Her Atlanta score is 7/24. She is going to continue to try positional therapy. Unfortunately though she has having hard time sleeping on her sides because she is having some left-sided discomfort in her flank. The patient was evaluated by her primary care doctor who ordered a renal ultrasound demonstrating either a cyst or a dilated pelvis of the kidney. I did give her the report and she needs to talk to her primary care doctor regarding the abnormal finding. It is a clear this was causing the discomfort but still should be looked that the since the patient continues to be symptomatic. 11/20/2022 the patient is here for a pulmonary follow-up visit. Overall she is doing well from a respiratory status. She is no longer using the Breo inhaler. She does use her rescue inhaler but typically less than 2 times a week. Does have dyspnea on exertion. Some component of deconditioning. in addition to this the patient has not been using CPAP. We did talk about the importance of positional therapy for sleep apnea. She does wake up rested. Her [place] score is around 7/24. She continues on her cardiac medications. Otherwise patient is without any other complaints. Will have her return in 6 months with a follow-up chest x-ray at that time. If the patient has any worsening symptoms prior to the next visit she is to call the office for an earlier assessment. 05/17/2023 the patient is here for a pulmonary follow-up visit. She still complains of dyspnea on exertion. Fojn-jx-gbzkhpzz severity. With minimal activity. She also complains of worsening lower extremity edema. She has been struggling with this for some time. She is already on diuretics. We did talk about dietary indiscretions. This continue low-sodium diet. 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 The patient also has not been using her CPAP and explained to her that can also resulting worsening lower extremity edema. In view of the worsening shortness of breath in the lower extremity edema will request a chest x-ray and also an echocardiogram. Will reassess her with an overnight oximetry as well. In the meantime she should try the compression stockings. Continue with current respiratory medications and follow-up after her studies. 08/12/2023 the patient is here for pulmonary follow-up visit. Overall the patient has been doing fairly well from a respiratory status. She still has lower extremity edema although better. She had difficulties with a compression socks because it caused some bruising. In addition to that she did have the echocardiogram which we personally reviewed. She has a normal cardiac function which is reassuring. Her overnight oximetry is also reassuring. The patient does not qualify for oxygen. She did have worsening cough several weeks ago. The patient was taken to urgent care where she was given prednisone which improve her cough significantly. She had been on Breo but she was taken off Breo since she was doing well. At this point she clinically sounds well without any wheezing. If she notices the cough restart she can start the Breo. She does have some persistent chest congestion. I did send her a tri-pack. 01/20/2024 the patient is here for a pulmonary follow-up visit. Overall she is doing okay from a respiratory status. Recently she was switched over from aspirin to Eliquis because of the atrial fibrillation. She was initially reluctant but I did reassure her that was the best option for her. In addition to that she does use her rescue inhaler. Although she does not use it often. I would switch over to Xopenex to try to minimize on any cardiac irritation. She still can uses as needed. The patient also complains of shortness breath while sleeping. She does have history of asthma so will go ahead and request an overnight oximetry. She is trying to use lower extremity compression stockings although difficult for her to tolerate. She is taking her diuretics with good effect. In addition to that, she had a chest x-ray back in May 2023 that I personally reviewed. Seems to have increased reticular markings could be volume overload status as she did have increased cardiac size. Will go ahead and repeated at this time. The patient follow-up in 4-6 months. 09/03/2024 the patient is here for pulmonary follow-up visit. Overall the patient has been doing okay from a respiratory status. She is responding well to the current respiratory regimen. Several weeks ago she had been sick with a respiratory illness. She did not seek any medical advice. She did stay home and uses her inhaler and also some hfgy-eca-eospzgn cough medications. Right now she is back to her baseline. She does have a nebulizer. I did give her ampules for her nebulizer and also some tubing that she can use in case she gets sick again she should restart using the nebulizer twice a day. She can also call for further recommendations. In the meantime she is going to continue with the respiratory therapy. From a sleep standpoint she is doing well. I did review the overnight test she had back in July of 2023 with her demonstrating that she did not need any oxygen supplementation. She will continue with positional therapy at this time since she could not tolerate CPAP. Will follow-up in 6 months if she has any issues prior to this she will call for an earlier assessment. [facility] Medical History Dyspnea Swelling of lower extremity Gross hematuria Onychomycosis Polyarthralgia Chronic back pain Migraine Hypovitaminosis D Paroxysmal atrial fibrillation Morbid obesity with BMI of 40.0-44.9, adult Sinusitis GERD (gastroesophageal reflux disease) Pure hypercholesterolemia Obesity JOHN on CPAP Asthma Surgical History Hx of colonoscopy History of pterygium excision History of total abdominal hysterectomy and bilateral salpingo-oophorectomy History of section History of appendectomy Family History Father CVD (cardiovascular disease) Mother Hypertension Brother Colon cancer Sister Colon cancer Thyroid cancer Sister Lupus Maternal Aunt Breast cancer Family/Other FH: mental illness Social History Housing: Apartment Alcohol intake: never Patient Tobacco Use Status: Never used Tobacco e-Cigarette/Vaping Use: Never Used Second Hand Smoke Exposure: No service: No Current occupational status: disabled Cognitive needs: No Hearing needs: No Vision needs: Yes Review of Systems Const Denies daytime sleepiness and Denies weakness ENT Denies dizziness Card Reports leg edema, Denies palpitations and Reports dyspnea on exertion Resp Reports cough, Reports dyspnea on exertion and Denies wheezing GI Denies hematochezia and Denies change in stool character Reports flank pain Musc Denies numbness Neuro Denies dizziness, Denies numbness and Denies weakness Endo Denies palpitations Aller/Immun Denies wheezing Physical Exam Vital Signs: Last Vital Signs Pulse 72 09/03/24 09:38 BP 120/64 09/03/24 09:38 Pulse Ox 96 09/03/24 09:38 Oxygen Delivery Method Room Air 09/03/24 09:38 BMI result Body Mass Index 43.7 Const General: alert Neck Neck: Yes normal visual inspection, Yes full ROM and Yes no lymphadenopathy Chest Chest palpation & inspection: normal inspection of the chest Resp Effort & Inspection: normal respiratory effort Auscultation: diminished lung sounds Cardio Rate: regular rate Rhythm: regular rhythm Heart sounds: S1 normal heart sound present and S2 normal heart sound present GI Palpation (GI): Soft to palpation and nontender Auscultation: normal bowel sounds Skin General skin exam: rashes and/or lesions noted Extrem General: Yes edema Assessment & Plan Assessment & Plan (1) Dyspnea: Code(s): R06.00 - Dyspnea, unspecified Category: Medical Qualifiers: Dyspnea type: dyspnea on exertion Qualified Code(s): R06.09 - Other forms of dyspnea (2) Asthma: Code(s): J45.909 - Unspecified asthma, uncomplicated Category: Medical Qualifiers: Asthma complication type: uncomplicated Asthma persistence: persistent Asthma severity: moderate Qualified Code(s): J45.40 - Moderate persistent asthma, uncomplicated (3) GERD (gastroesophageal reflux disease): Code(s): K21.9 - Gastro-esophageal reflux disease without esophagitis Category: Medical Qualifiers: Esophagitis presence: esophagitis presence not specified Qualified Code(s): K21.9 - Gastro-esophageal reflux disease without esophagitis Plan MATHEW as needed, xopenex positional therapy diuresis as tolerated sleep with the head of the elevated compression stockings as tolerated CXR overnight oximetry on RA ok F/U 6-8 months Medications: New albuterol sulfate 2.5 mg (3 mL) inhalation Q6H PRN 180 mL 11RF shortness of breath or wheezing 30 days Coding Level of Care Code Est Pt Level 4 (99134) Diagnoses Dyspnea on exertion R06.09 Dyspnea type: dyspnea on exertion Moderate persistent asthma without complication J45.40 Asthma complication type: uncomplicated Asthma persistence: persistent Asthma severity: moderate Gastroesophageal reflux disease, unspecified whether esophagitis present K21.9 Esophagitis presence: esophagitis presence not specified Time Spent (min) 16
--- OUTSIDE RECORDS SUMMARY | 2024-09-03 10:38 | XMS_ITS | Data Portability ---
Author Organization [place] [facility], Allergy Address [address] [address] Care Team Providers Care Dish Stacker Name Role Phone DAVID MARTINEZ Primary Care Provider [phone] Assessment Encounter Date Assessment Date Assessment LastModified [...] will monitor her blood pressure at home. [email or web address] Not available 10/09/2023 15:42:40 Plan of Treatment [...] By Organization Details Last Modified Time 10/09/2023 [id number] nosebleed information [email or web address] Not available 10/09/2023 15:43:48 Reason for Referral None Reported. Problems Name Problem SNOMED Code Status Onset Date Resolution Date Notes Provider Name and Address Organization Details Recorded Time Bleeding from nose 359373758 Active 024 SOHAM EPSTEIN MD [address] [facility],[place] [address], [place], [address] , [place] - [facility] 4 15:41:04 Deviated nasal septum 715151349 Active 024 SOHAM EPSTEIN MD [address] [facility] [address], [place], [address] , [facility] - [facility] 4 15:41:23 Problem Notes None recorded. Procedures Surgical History Date Name Laterality Status Provider Name and Address Organization Details Recorded Time Eye Surgery completed Modesto Gregg [place] [facility] 10/09/2023 15:14:12 delivery completed Mod[place] Gregg [place] - [facility] 10/09/2023 15:14:31 hysterectomy completed Modesto Gregg [place] - [facility] 10/09/2023 15:15:04 appendectomy completed Mod[place] Gregg [place] - [facility] 10/09/2023 15:15:13 Imaging Results None recorded. Procedure Notes None recorded. Medical Equipment None Reported. Allergies Allergen ID Allergen Name Allergen Category Reaction Reaction Severity Criticality Documentation Date Start Date Code Code System Note Provider Name and Address Organization Details Recorded Time 368406 Augmentin medicatio n Not available Not available Not available 10/09/2023 42588 2 RxNorm Modesto alexander [place] - [facility] 15:14:50 Medications Name Sig Start Date [...] DIRECTED BY [facility] T AT [facility] 10/08 completed Not Available Not Available Not Available Flowflex COVID-19 Antigen Home Test kit USE DIRECTED active Not Available Not Available No t Available Vitals Date Recorded Body height Body mass index (BMI) Body weight Provider Name and Address Organization Details Last Updated DateTime 10/09/2023 157.48 cm 42.6 kg/m2 502820.02 g Modesto Gregg [place] [facility] 10/09/2023 15:19:48 Social History None recorded. [...] SNOMED-CT Code Diagnosis ICD10 Code Diagnosis Note [id number] SOHAM EPSTEIN MD [facility] [address] [place] [address] 10/09/2023 14:27:05 10/09/2023 15:50:16 Bleeding from nose 623793325 R04.0 Long-term current use of antiplatelet drug [id number] 29388 Z79.02 Deviated nasal septum 12 5517836 J34.2 Health Concerns Section Related Observation LastModified by Organization Detai ls LastModified Time None Recorded Concern Status LastModified by Organization Details LastModified Time None Recorded Advance Directives Directive None Recorded Payers Insurance Date Sequence Insurance Name Policy Number Policy Rivera Covered Member ID Rivera Member ID Guarantor Name 10/09/2023 1 [facility] - DOS ON OR AFTER 2022 - MEDICARE ADVANTAGE [place] (MEDICARE REPLACEMENT/ADV ANTAGE - PPO) Sarah Anderson [id number] Sarah Anderson Notes Date Note Type Note [...] last 6 months SOHAM RODRIGUEZ MD [address], [address], [place] - [facility] 10/09/2023 15:43:51 OBGyn Episode No OBEpisode recorded.
== END 2024-09-03 10:01 | disposition home or self-care (01) ==
LOC: HO.HPS 09:34
PROVIDERS: PCP Internal Medicine; Visit Provider Hospitalist
DX: R06.09 Other forms of dyspnea (principal); J45.40 Moderate persistent asthma, uncomplicated; K21.9 Gastro-esophageal reflux disease without esophagitis
CPT/HCPCS: 99214

== ENCOUNTER → 2024-09-03 09:34 | Outpatient (BNVA) | payer OTHER, SELFPAY | PROVIDERS: PCP Internal Medicine; Visit Provider Hospitalist | DX: J45.40 Moderate persistent asthma, uncomplicated (principal); K21.9 Gastro-esophageal reflux disease without esophagitis; R06.00 Dyspnea, unspecified | CPT/HCPCS: 99212 ==

== ENCOUNTER 2024-09-21 13:07 | Outpatient (AMB) | payer OTHER, SELFPAY ==
[2024-09-21 13:10] VITALS: BP 114/64; PULSE 66; BMI 43.4
--- NOTE | 2024-09-21 13:10 | MHC.OFFVIS ---
Vital Signs 09/21/24 13:10 Height 5 ft 2 in Weight 237 lb 3.478 oz BMI 43.4 BP 114/64 Blood Pressure Location Lt brachial Position Sitting Pulse 66 Pulse Source Pulse Oximeter Intake Visit Reasons: 6m follow up Newspaper Subscription Solicitor Required: Yes Newspaper Subscription Solicitor Language: Mathematics Improvement Teacher Name: voice lima [id number] Allergies naproxen Allergy (Severe, Verified 09/21/24 13:12) muscle aches sertraline Allergy (Severe, Verified 09/21/24 13:12) muscle aches amoxicillin (From Augmentin) Allergy (Mild, Verified 09/21/24 13:12) Unknown clavulanic acid (From Augmentin) Allergy (Mild, Verified 09/21/24 13:12) Unknown Medication List - Last Reconciled 09/21/24 by RAO Blanton apixaban (Eliquis) 5 mg PO BID carvedilol 6.25 mg PO BID 90 days cholecalciferol (vitamin D3) (Vitamin D3) 25 mcg PO DAILY compress.stocking,knee,reg,med 15-20 cm diclofenac sodium 1% (Aleve (diclofenac)) 2 grams topical QID PRN famotidine 20 mg PO BEDTIME furosemide 20 mg PO DAILY 90 days gabapentin 300 mg PO BEDTIME levalbuterol tartrate 45 mcg/actuation (Xopenex HFA) 2 puffs inhalation Q6H PRN 30 days montelukast 10 mg PO DAILY nebulizers As directed pantoprazole 40 mg PO DAILY [recliner As directed] Shower Chair As directed sucralfate (Carafate) 10 mL PO QID PRN triamcinolone acetonide 0.5% 1 appl topical BID PRN 30 days HPI HPI 6m follow up: Details: Sarah is a 64-year-old female past medical history of hyperlipidemia, sleep apnea with CPAP use, paroxysmal atrial fibrillation who presents for follow-up. Today she reports that she has not had any recurrent chest discomfort since prior to last visit. She has been active with walking and stair climbing without chest symptoms, only knee discomfort. She also denies recent heart palpitations. No sustained rapid or irregular rates. No shortness of breath, PND, orthopnea. She does report some swelling in her lower extremities at times. No lightheadedness, presyncope, syncope, falls. She is mostly sedentary. Ambulates with a cane. Takes all meds as directed. Certified american sign language interpreter used. [facility] Medical History Dyspnea Swelling of lower extremity Gross hematuria Onychomycosis Polyarthralgia Chronic back pain Migraine Hypovitaminosis D Paroxysmal atrial fibrillation Morbid obesity with BMI of 40.0-44.9, adult Sinusitis GERD (gastroesophageal reflux disease) Pure hypercholesterolemia Obesity JOHN on CPAP Asthma Surgical History Hx of colonoscopy History of pterygium excision History of total abdominal hysterectomy and bilateral salpingo-oophorectomy History of section History of appendectomy Family History Father CVD (cardiovascular disease) Mother Hypertension Brother Colon cancer Sister Colon cancer Thyroid cancer Sister Lupus Maternal Aunt Breast cancer Family/Other FH: mental illness Social History Housing: Apartment Alcohol intake: never Patient Tobacco Use Status: Never used Tobacco e-Cigarette/Vaping Use: Never Used Second Hand Smoke Exposure: No service: No Current occupational status: disabled Cognitive needs: No Hearing needs: No Vision needs: Yes Review of Systems Const All systems reviewed & are unremarkable except as noted in HPI and below ENT Denies dizziness Card Denies chest pain, Denies chest pain at rest, Denies chest pain with activity, Denies rapid heart rate, Denies pedal edema, Denies edema, Denies leg edema, Denies lightheadedness, Denies palpitations, Denies dyspnea, Denies dyspnea on exertion and Denies orthopnea Resp Denies cough, Denies dyspnea and Denies dyspnea on exertion GI Denies hematochezia and Denies change in stool character Musc Denies abnormal gait, Denies limited range of motion, Denies muscle cramps, Denies muscle weakness, Denies numbness, Denies radiating pain into limb, Denies stiffness and Denies tingling Neuro Denies abnormal gait, Denies dizziness, Denies numbness and Denies tingling Endo Denies palpitations Physical Exam Vital Signs: Last Vital Signs Pulse 66 09/21/24 13:10 BP 114/64 09/21/24 13:10 BMI result Body Mass Index 43.4 Const Other: morbidly obese General: cooperative, healthy appearing, comfortable and no acute distress Orientation/consciousness: patient oriented x3 Neck Neck: Yes normal visual inspection Chest Chest palpation & inspection: normal inspection of the chest Resp Effort & Inspection: normal respiratory effort Auscultation: clear to auscultation bilaterally, no rales, no rhonchi and no wheezes Cardio Rate: regular rate Rhythm: regular rhythm Heart sounds: S1 normal heart sound present, S2 normal heart sound present, no murmurs and no rubs Skin General skin exam: no rashes or lesions noted Neuro General: patient oriented x3 Extrem Other: obese, soft, puffy General: Yes normal to inspection Psych Appearance: grossly normal Mental Status: mental status grossly normal Speech and movement: Normal speech and movement present Assessment & Plan Assessment & Plan (1) Paroxysmal atrial fibrillation: Code(s): I48.0 - Paroxysmal atrial fibrillation Category: Medical Plan: History of paroxysmal atrial fibrillation. No recent documented episodes. On carvedilol for heart rate control. On Eliquis for anticoagulation. No bleeding issues reported. Last Holter in 2021 did not show any atrial fibrillation. EKG done 07/21/2024 shows sinus rhythm, rate 66. Pulse regular on examination today. No med changes made at this time. Cardiology office visit 6 months, sooner if needed. (2) JOHN on CPAP: Code(s): G47.33 - Obstructive sleep apnea (adult) (pediatric); Z99.89 - Dependence on other enabling machines and devices Category: Medical Plan: Compliant (3) Morbid obesity with BMI of 40.0-44.9, adult: Code(s): E66.01 - Morbid (severe) obesity due to excess calories; Z68.41 - Body mass index [BMI] 40.0-44.9, adult Category: Medical Plan: Benefit of weight reduction reviewed with her. Consider referral to bariatric program. (4) Chest discomfort: Code(s): R07.89 - Other chest pain Category: Medical Plan: On last visit she had reported 2 episodes of atypical chest discomfort. Nuclear stress test was discussed however not completed for unclear reason. Last echo on 06/13/2023 which was normal study. At this time no longer having any chest pains. Will hold off on further testing at this time. Signs and symptoms of angina reviewed with her. Plan I discussed with the patient the importance of continuing her current medications, including the blood thinner, and monitoring for any recurrence of chest pain or heart palpitations. For her peripheral edema, I advised reducing dietary salt intake and elevating her legs when sitting. We agreed on a follow-up in six months, with the option to return sooner if her symptoms worsen. Patient Instructions: - Continue taking all prescribed medications, including blood thinner. - Monitor for chest pain or heart palpitations and contact the clinic if they occur. - Reduce salt in your diet and elevate your legs when sitting to help with swelling. - Follow up in six months or sooner if symptoms worsen. Patient was informed and verbally consented to the use of an ambient scribe for clinic note documentation during this visit. Visit time spent on chart review, interview, assessment, orders, documentation. Coding Level of Care Code Est Pt Level 4 (41874) Complex EM visit Add On G2211 Diagnoses Paroxysmal atrial fibrillation I48.0 JOHN on CPAP G47.33; Z99.89 Morbid obesity with BMI of 40.0-44.9, adult E66.01; Z68.41 Chest discomfort R07.89 Time Spent (min) 28
--- OUTSIDE RECORDS SUMMARY | 2024-09-21 14:08 | XMS_ITS | Data Portability ---
Author Organization [place] [facility], Allergy Address [address] [address] Care Team Providers Care General Education Instructor Name Role Phone DAVID MARTINEZ Primary Care [...] By Organization Details Last Modified Time 10/09/2023 [id number] nosebleed information [email or web address] Not available 10/09/2023 15:43:48 Reason for Referral None Reported. Problems Name Problem SNOMED Code Status Onset Date Resolution Date Notes Provider Name and Address Organization Details Recorded Time Bleeding from nose 593482905 Active 024 SOHAM EPSTEIN MD 100 [facility],[place] [address], [place], [address] , [place] - [facility] 4 15:41:04 Deviated nasal septum 007056562 Active 024 SOHAM EPSTEIN MD 100 [facility] 100, [place], [address] , [facility] - [facility] 4 15:41:23 Problem Notes None recorded. Procedures Surgical History Date Name Laterality Status Provider Name and Address Organization Details Recorded Time Eye Surgery completed Modesto Gregg [place] [facility] 10/09/2023 15:14:12 delivery completed Modesto Gregg [place] - [facility] 10/09/2023 15:14:31 hysterectomy completed Modesto Gregg [place] - [facility] 10/09/2023 15:15:04 appendectomy completed Modesto Gregg [place] - [facility] 10/09/2023 15:15:13 Imaging Results None recorded. Procedure Notes None recorded. Medical Equipment None Reported. Allergies Allergen ID Allergen Name Allergen Category Reaction Reaction Severity Criticality Documentation Date Start Date Code Code System Note Provider Name and Address Organization Details Recorded Time 745122 Augmentin medicatio n Not available Not available Not available 10/09/2023 31019 2 RxNorm Modseto alexander [place] - [facility] 15:14:50 Medications Name Sig Start Date Stop [...] DIRECTED BY GASTROENT EROLOGY DEPARTMEN T AT [facility] 10/08 completed Not Available Not Available Not Available Flowflex COVID-19 Antigen Home Test kit USE DIRECTED active Not Available Not Available No t Available Vitals Date Recorded Body height Body mass index (BMI) Body weight Provider Name and Address Organization Details Last Updated DateTime 10/09/2023 157.48 cm 42.6 kg/m2 412111.02 g Modesto Gregg [place] [facility] 10/09/2023 15:19:48 Social History None recorded. Functional Status None recorded. Mental Status None recorded. Family History Nothing Reported Notes:mini stroke Medical History Condition Response Heart Problems Y Migraines Y Arthritis Y Stroke Y Asthma Y Gynecological HistoryNo gynecological history recorded. Obstetrics History GPAL:G 0 P 0 0 0 0 Past Encounters Encounter ID Performer Location Encounter Start Date Encounter Closed Date Diagnosis/Indication Diagnosis SNOMED-CT Code Diagnosis ICD10 Code Diagnosis Note [id number] SOHAM EPSTEIN MD [facility] 100 [place] [address] 10/09/2023 14:27:05 10/09/2023 15:50:16 Bleeding from nose 718994603 R04.0 Long-term current use of antiplatelet drug 7999183809 57524 Z79.02 Deviated nasal septum 12 5556190 J34.2 Health Concerns Section Related Observation LastModified by Organization Detai ls LastModified Time None Recorded Concern Status LastModified by Organization Details LastModified Time None Recorded Advance Directives Directive None Recorded Payers Insurance Date Sequence Insurance Name Policy Number Policy Rivera Covered Member ID Rivera Member ID Guarantor Name 10/09/[address] [facility] - DOS ON OR AFTER 2022 - MEDICARE ADVANTAGE [place] (MEDICARE REPLACEMENT/ADV ANTAGE - PPO) Sarah Anderson [id number] Sarah Anderson Notes Date Note Type Note [...] 6 months SOHAM RODRIGUEZ MD [address], [address], [place] - [facility] 10/09/2023 15:43:51 OBGyn Episode No OBEpisode recorded.
--- OUTSIDE RECORDS SUMMARY | 2024-09-21 14:08 | XMS_ITS | Clinical Summary ---
Author Organization 175 [facility] Address 175 [place] [address] Phone Care Team Providers Care Getter Operator Name Role Phone Simran Thompson MD Primary Care Provider [phone] Allergies Active Allergy Reactions Criticality Noted Date Comments Amoxicillin-Pot Clavulanate 05/13/19 25 Medications ammonium lactate (AmLactin) 12 % lotion Apply topically if needed for dry skin. 400 g 5 05/15/19 26 Active Encounters Date Type Department Care Team Description 08/20/2024 10:15 AM EDT Office Visit Orthopedic [facility] [address] [address] Dc Payne DPM Metatarsalgia of right foot (Primary Dx); Dermatophytosis of nail; Pain in toe of left foot; Bilateral femoral artery stenosis (CMS/HCC V24); Pain in toe of right foot; Metatarsalgia of left foot; Ingrowing nail 06/22/2024 10:45 AM EDT Office Visit Orthopedic [place] [address] [address] Dc Payne DPM Plantar fascial fibromatosis (Primary Dx); Metatarsalgia of right foot; Metatarsalgia of left foot; Verruca plantaris; Dermatophytosis of nail from Last 3 Months Social History Tobacco [...] Oxygen Concentration - - Weight 108 kg (238 lb 1.6 oz) 08/20/2024 10:19 A M EDT Height 157.5 cm (5' 2.01 ) 08/20/2024 10:19 AM E DT Body Mass Index 43.54 08/20/2024 10:19 AM EDT Plan of Treatment Upcoming Encounters Date Type Department Care Team (Late st Contact Info) Description 11/26/2024 10:15 AM EDT Office Visit Orthopedic Surgery - [place] [address] [address] Dc Payne, DPM [address] [address] Health Maintenance Due Date Last Done Comments Breast Cancer Screening 1960 Zoster Vaccines (1 of 2) 02/03/2008 RSV Immunization Adult Patients (1 - Risk 60-74 years 1-dose series) 2018 COVID-19 Vaccine ( - season) 2023 04/03/2021, 02/28/2021 Cholesterol Screening (Lipid Panel) 03/05/2024 Colorectal Cancer Screening: Colonoscopy 03/05/2024 Depression Screening 03/05/2024 Falls Risk Assessment 03/05/2024 Hepatitis C Screening 03/05/2024 Medicare Annual Wellness Visit 03/05/2024 Osteoporosis Screening (Bone Density Screening) 03/05/2024 Social Influencers of Health Screening 03/05/2024 Influenza Vaccine (#1) 2024 , 12/23/2019, 02/03/2019, Additional history exists DTaP,Tdap,and Td [...] patient's age to complete this topic Insurance [place] [id number] [employer] MEDICARE Member Subscriber Plan / Payer (Ef fective 2023-Present) Name:FABIOLA LEDESMA Relation to Subscriber:Self Name:Fabiola Ledesma Payer ID:[id number] Group ID:[id number] Type:Not on file Address: [place] [address] [place] [phone] Care Teams Getter Operator Relationship Specialty Start Date End Date Simran Thompson MD [address] [place] [address] , [address] [facility] Physician Associ D/B/A: [facility] CORAZ[facility] Mckeon PCP - General Internal Medicine 09/05/16
--- OUTSIDE RECORDS SUMMARY | 2024-09-21 14:08 | XMS_ITS | Clinical Summary ---
Author Organization [facility] Address [address] [facility] [address] [place] [address] Care Team Providers Care Brimming Machine Operator Name Role Phone Unavailable Primary Care Provider Unavailabl e Allergies Active Allergy Reactions Criticality Noted Date Comments Amoxicillin-Pot Clavulanate 05/13/19 Naproxen 05/15/2021 Sertraline 05/15/2021 Medications triamcinolone (Kenalog) 0.5 % cream APPLY TOPICALLY 2 TIMES A DAY NEEDED FOR RASH FOR 30 DAYS 4 Active furosemide (Lasix) 20 MG tablet Take 1 tablet by mouth at bed time. Active montelukast (Singulair) 10 MG tablet Take 1 tablet by mouth at bed time. Active gabapentin (Neurontin) 300 MG capsule take 1 capsule by mouth everyday at bedtime 5 Active cholecalciferol (Vitamin D3) 25 MCG (1000 UT) tablet Take 1 tablet by mouth Once per day. 5 Active famotidine (Pepcid) 20 MG tablet 5 Active levalbuterol (Xopenex) 45 MCG/ACT inhaler TAKE 2 PUFF INHALED EVERY 6 HOURS NEEDED FOR SHORTNESS OF BREATH OR WHEEZING FOR 30 DAYS 5 Active Eliquis 5 MG tablet Take 1 tablet by mouth 2 times daily. 5 Active pantoprazole (ProtoNix) 40 MG EC tablet 5 Active diclofenac (Voltaren) 0.1 % ophthalmic solution 1 drop 4 times daily. Active Active Problems Problem Noted Date Diagnosed Date Depressive disorder 04/12/2015 Gastroesophageal reflux disease without esophagi tis 04/12/2015 History of abdominal hysterectomy 04/12/2015 Hypercholesterolemia 04/12/2015 Mild persistent asthma 04/12/2015 Morbid obesity 04/12/2015 Encounters Date Type Department Care Team Description 09/10/2024 1:30 PM EDT Office Visit [facility] [address] [place] [address] Akosua Nelson Excessive attrition of teeth (Primary Dx); Gingival bleeding; Dental plaque; Dental calculus; Missing teeth, acquired from Last 3 Months Social History Tobacco [...] FIT DNA/Cologuard 1960 FIT 1958 FOBT 1960 Lipid Panel 1960 SDOH Screening 1960 Sigmoidoscopy 1958 Alcohol/Substance Use Screening 1970 Tobacco Screening 1970 Hepatitis C Screening 02/03/1976 Mammogram 1998 Zoster Vaccines (1 of 2) 02/03/2008 RSV Patients and Patients Aged 60 years or older (1 - Risk 60-74 years 1-dose series) 2018 COVID-19 Vaccine ( season) 2023 04/03/2021, 02/28/2021 Influenza Vaccine (#1) 2024 , 12/23/2019, 02/03/2019, Additional history exists Dental Oral Exam 03/14/2025 09/10/2024, 06/2017, 10/05/2016, Additional history exists Dental Prophylaxis 03/14/2025 09/10/2024, 0 09/05/2018, 04/10/2017, Additional history exists Dental X-Ray: Bitewings 09/11/2025 09/11/19 25, 09/06/2017, 06/12/2017, Additional history exists Dental X-Ray: Full Mouth 09/12/2027 09/10/2024, 05/0 06/2015 DTaP/Tdap/Td Vaccines (3 - Td or Tdap) 12/10/2030 12/10/2020, 04/06/2010, [...] on patient's age to complete this topic Procedures Procedure Name Priority Date/Time Associated Diagnosis Comments INTRAORAL - COMPLETE SERIES OF RADIOGRAPHIC IMAGES Routine 09/10/2024 1:30 PM EDT CASE PRESENTATION, DETAILED AND EXTENSIVE TREATMENT PLANNING Routine 09/10/2024 1:30 PM EDT ORAL HYGIENE INSTRUCTIONS Routine 09/10/2024 1:30 PM EDT Full PROPHYLAXIS - ADULT Routine 025 1:30 PM EDT PERIODIC ORAL EVALUATION - ESTABLISHED PATIENT Routine 09/10/2024 1:30 PM EDT Gingival bleeding Dental plaque Dental calculus Missing teeth, acquired from Last 3 Months Insurance DENTAL - [facility]
--- OUTSIDE RECORDS SUMMARY | 2024-09-21 14:08 | XMS_ITS | Clinical Summary ---
Author Organization [facility] Address [address] [place] [address] Care Team Providers Care Environmental Planner Name Role Phone Simran Thompson MD Primary Care Provider Jett garcia Active Problems No known active problems Social History Tobacco Use Types Packs/Day Years Used Date Smoking Tobacco: Never Assessed Sex Assigned at Date Recorded Not on file Plan of Treatment Health Maintenance Due Date Last Done Comments Covid-19 Vaccine (#1) 1960 TOBACCO CHECK/ADVISE 02/03/1976 DTAP/TDAP/TD (1 - Tdap) 1977 CHOLESTEROL SCREENING 1978 MAMMOGRAM 1998 COLON CANCER SCREENING 02/03/2008 SHINGLES VACCINE (1 of 2) 02/03/2008 BONE DENSITY SCREENING 2023 PNEUMOCOCCAL VACCINE (1 - PCV) 2023 BMI CHECK/ADVISE 03/11/2024 INFLUENZA (#1) 2024 Care Teams Environmental Planner Relationship Specialty Start Date End Date Simran Thompson MD PCP - General Internal Medicine 09/05/16
== END 2024-09-21 13:42 | disposition home or self-care (01) ==
LOC: HO.HCS 13:07
PROVIDERS: PCP Internal Medicine; Visit Provider Nurse Practitioner Family
DX: I48.0 Paroxysmal atrial fibrillation (principal); G47.33 Obstructive sleep apnea (adult) (pediatric); Z99.89 Dependence on other enabling machines and devices; E66.01 Morbid (severe) obesity due to excess calories; Z68.41 Body mass index [BMI] 40.0-44.9, adult; R07.89 Other chest pain
CPT/HCPCS: 99214; G2211

== ENCOUNTER → 2024-09-21 13:07 | Outpatient (BNVA) | payer OTHER, SELFPAY | PROVIDERS: PCP Internal Medicine; Visit Provider Nurse Practitioner Family | DX: I48.0 Paroxysmal atrial fibrillation (principal); G47.33 Obstructive sleep apnea (adult) (pediatric); Z99.89 Dependence on other enabling machines and devices; E66.01 Morbid (severe) obesity due to excess calories; Z68.41 Body mass index [BMI] 40.0-44.9, adult; R07.89 Other chest pain | CPT/HCPCS: 99212 ==

== ENCOUNTER 2024-11-28 08:30 | Outpatient (REF) | payer OTHER, SELFPAY ==
--- OUTSIDE RECORDS SUMMARY | 2024-11-28 08:33 | XMS_ITS | Clinical Summary ---
Author Organization 175 [facility] g Address [address] [place] [address] Phone Care Team Providers Care Regional Sales Engineer Name Role Phone Simran Thompson MD Primary Care Provider [phone] Allergies Active Allergy Reactions Criticality Noted Date Comments Amoxicillin-Pot Clavulanate 05/13/19 25 Medications ammonium lactate (AmLactin) 12 % lotion Apply topically if needed for dry skin. 400 g 5 05/15/19 26 Active Social History Tobacco Use Types Packs/Day Years [...] Care Team (Late st Contact Info) Description 01/20/2025 10:00 AM EST Office Visit Orthopedic Surgery - [place] [address] [address] Dc Payne, DPM [address] [address] Health Maintenance Due Date Last Done Comments Breast Cancer Screening 1960 Zoster Vaccines (1 of 2) 02/03/2008 RSV Immunization Adult Patients (1 - Risk 60-74 years 1-dose series) 2018 Cholesterol Screening (Lipid Panel) 03/05/2024 Colorectal Cancer Screening: Colonoscopy 03/05/2024 Falls Risk Assessment 03/05/2024 Hepatitis C Screening 03/05/2024 Medicare Annual Wellness Visit 03/05/2024 Osteoporosis Screening (Bone Density Screening) 03/05/2024 Social Influencers of Health Screening 03/05/2024 Depression Screening 03/11/2024 COVID-19 Vaccine (3 - season) 2024 04/03/2021, 02/28/2021 Influenza Vaccine (#1) 2024 , [...] patient's age to complete this topic Insurance [facility] MEDICARE Member Subscriber Plan / Payer (Ef fective 2023-Present) Name:FABIOLA LEDESMA Relation to Subscriber:Self Name:Fabiola Ledesma Payer ID:[id number] Group ID:[id number] Type:Not on file Address: [facility] [address] [place] [phone] Care Teams Regional Sales Engineer Relationship Specialty Start Date End Date Simran Thompson MD 2 [facility] , [address] [facility] Physician Associ D/B/A: [facility] CORAZ[employer] Mckeon PCP - General Internal Medicine 09/05/16
[2024-11-28 08:42] LABS: MANUAL DIFF FLAG NO
[2024-11-28 09:06] LABS: Hematocrit 37.7 % (37.0-47.0); Hemoglobin 12.8 g/dl (12.0-16.0); Imm Gran Abs Auto 0.02 X10*3/uL (0.00-0.03); Imm Gran Pct Auto 0.3 % (0.0-0.4); Lymphocytes Absolute Auto 2.6 X10*3/uL (1.2-4.9); Mean Corpuscular HGB Conc 34.0 g/dl (31.0-35.0); Mean Corpuscular Hemoglobin 30.2 pg (27.0-33.0); Mean Corpuscular Volume 88.9 fL (80.0-98.0); NRBC Abs Auto 0.000 X10*3/uL (0.0-0.012); NRBC Pct Auto 0.0 /100WBC (0.0-0.2); Platelet Count 309 X10*3/uL (160-400); Red Blood Count 4.24 X10*6/uL (4.20-5.50); White Blood Count 5.9 X10*3/uL (4.8-10.8)
[2024-11-28 09:57] LABS: Alanine Aminotransferase 12 U/L (0-31); Albumin Level 3.8 g/dL (3.5-5.0); Alkaline Phosphatase 97 U/L (39-117); Anion Gap 12 (12-20); Aspartate Amino Transferase 22 U/L (5-31); Blood Urea Nitrogen 17 mg/dL (9-16); Calcium 8.9 mg/dL (8.4-10.2); Carbon Dioxide 26 mmol/L (22-29); Chloride 109 mmol/L (96-108); Cholesterol 214 mg/dL (<200); Estimated Glomerular Filt Rate > 60; HDL Cholesterol 48 mg/dL (>40); Iron 63 mcg/dL (30-160); Percent Iron Saturation 23 % (15-50); Potassium 3.7 mmol/L (3.3-5.1); Sodium 143 mmol/L (135-145); Total Iron Binding Capacity 277 mcg/dL (228-428); Total Protein 7.2 g/dL (6.5-8.0); Triglycerides 107 mg/dL (<150); Unsaturated Iron Binding 214 ug/dL
== END 2024-11-28 08:31 | disposition home or self-care (01) ==
LOC: HO.LAB 08:30
PROVIDERS: PCP Internal Medicine; Visit Provider Internal Medicine
DX: E66.01 Morbid (severe) obesity due to excess calories (principal); D64.9 Anemia, unspecified; E55.9 Vitamin D deficiency, unspecified; E78.5 Hyperlipidemia, unspecified; Z68.41 Body mass index [BMI] 40.0-44.9, adult
CPT/HCPCS: 36415; 80053; 80061; 82306; 83540; 85025

== ENCOUNTER 2024-12-04 10:29 | Outpatient (AMB) | payer OTHER, SELFPAY ==
[2024-12-04 10:35] VITALS: BP 132/80; PULSE 76; O2SAT 97; BMI 43.6
--- NOTE | 2024-12-04 10:35 | A.OFFPC_ITS ---
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 Accompanied by: Self / Same As Patient Allergies naproxen Allergy (Severe, Verified 12/04/24 10:53) muscle aches sertraline Allergy (Severe, Verified 12/04/24 10:53) muscle aches amoxicillin (From Augmentin) Allergy (Mild, Verified 12/04/24 10:53) Unknown clavulanic acid (From Augmentin) Allergy (Mild, Verified 12/04/24 10:53) Unknown Medication List - Last Reconciled 12/04/24 by Simran Thompson MD apixaban (Eliquis) 5 mg PO BID carvedilol 6.25 mg PO BID 90 days cholecalciferol (vitamin D3) (Vitamin D3) 25 mcg PO DAILY compress.stocking,knee,reg,med 15-20 cm diclofenac sodium 1% (Aleve (diclofenac)) 2 grams topical QID PRN famotidine 20 mg PO BEDTIME furosemide 20 mg PO DAILY 90 days gabapentin 300 mg PO BEDTIME levalbuterol HCl 1.25 mg (3 mL) inhalation BID 30 days levalbuterol tartrate 45 mcg/actuation (Xopenex HFA) 2 puffs inhalation Q6H PRN 30 days montelukast 10 mg PO DAILY nebulizers As directed pantoprazole 40 mg PO DAILY [recliner As directed] Shower Chair As directed sucralfate (Carafate) 10 mL PO QID PRN triamcinolone acetonide 0.5% 1 appl topical BID PRN 30 days Tobacco use date assessed: 12/04/24 Fall risk assessment: No Falls in past year Last assessed Fall Risk: 12/04/24 Dental Screening Dental Screen Date: 12/04/24 Did you have a dental visit in the last 12 months?: Yes Did you have a dental problem in the last 6 months where you did not have access to dental care?: No Was dental information given to patient?: Patient has dentist HPI HPI Comments History of Present Illness Details The patient is a 64-year-old female presenting for an annual physical examination and preventative care. She received a pneumonia vaccine at the age of 62 and a tetanus vaccine in 2020, with the next tetanus booster due in 2030. Her last mammogram was conducted in June of the previous year, and she is currently overdue for a follow-up. The patient has a history of atrial fibrillation for which she is on Eliquis. She has allergies to naproxen, sertraline, and Augmentin. Her family history is significant for colon cancer in a brother and sister, breast cancer in an aunt, thyroid disease, and lupus in a sister. [facility] Medical History (Updated 12/04/24 @ 11:06 by Simran Thompson MD) Dyspnea Swelling of lower extremity Gross hematuria Onychomycosis Polyarthralgia Chronic back pain Migraine Hypovitaminosis D Paroxysmal atrial fibrillation Morbid obesity with BMI of 40.0-44.9, adult Sinusitis GERD (gastroesophageal reflux disease) Pure hypercholesterolemia Obesity JOHN on CPAP Asthma Surgical History Hx of colonoscopy History of pterygium excision History of total abdominal hysterectomy and bilateral salpingo-oophorectomy History of section History of appendectomy Family History Father CVD (cardiovascular disease) Mother Hypertension Brother Colon cancer Sister Colon cancer Thyroid cancer Sister Lupus Maternal Aunt Breast cancer Family/Other FH: mental illness Social History Housing: Apartment Alcohol intake: never Patient Tobacco Use Status: Never used Tobacco e-Cigarette/Vaping Use: Never Used Second Hand Smoke Exposure: No service: No Current occupational status: disabled Cognitive needs: No Hearing needs: No Vision needs: Yes Questionnaire PHQ-9 Over the last 2 weeks, how often have you been bothered by any of the following problems? 1. Little interest or pleasure in doing things: more than half the days 2. Feeling down, depressed, or hopeless: not at all 3. Trouble falling or staying asleep, or sleeping too much: not at all 4. Feeling tired or having little energy: several days 5. Poor appetite or overeating: not at all 6. Feeling bad about yourself - or that you are a failure or have let yourself or your family down: not at all 7. Trouble concentrating on things, such as reading the newspaper or watching television: not at all 8. Moving or speaking so slowly that other people could have noticed. Or the opposite - being so fidgety or restless that you have been moving around a lot more than usual: not at all 9. Thoughts that you would be better off or of hurting yourself in some way: not at all Total score: 3 Depression Screening Interpretation: Positive Depression Screening Follow-up: Existing condition and Follow-up Visit Requested Depression Screening Done: Yes 57632 - PHQ-9 Billing: Yes Source: Developed by Drs. Yann Frausto, Kelly Johnson, Ellis Berumen and colleagues, with an educational lisette from [employer]. Thrive Questionnaire Date Thrive assessed: 12/04/24 I am a: Patient What is your living situation today?: I have a steady place to live Within the past 12 months, did the food you bought not last and you didn't have the money to get more?: Never true Within the past 12 months, did you worry whether your food would run out before you got money to buy more?: Never true Do you have trouble paying for medicines?: No Do you have trouble getting transportation to medical appointments?: No Do you have trouble paying your heating and electricity bill?: No Do you have trouble taking care of your child, family member or friend?: No Do you have trouble with day-to-day activities such as bathing, preparing meals, shopping, managing finances, etc.?: Yes Are you currently unemployed and looking for a job?: No Are you interested in more education?: No Please select the resources that you would like help with: None Currently or been in a relationship where the following occur: No concerns reported THRIVE Score: 0 AUDIT C Alcohol Use Questionnaire (AUDIT-C) 1. How often do you have a drink containing alcohol?: Never 3. How often do you have six or more drinks on one occasion?: Never Total Score: 0 Score Reviewed/Action Taken: No LI-7 AMB Questionnaire LI-7 Date LI - 7 assessed: 12/04/24 Feeling nervous, anxious, or on edge: 0 = Not at all Not being able to stop or control worryin = Not at all Worrying too much about different things: 0 = Not at all Trouble relaxin = Not at all Being so restless that it is hard to sit still: 0 = Not at all Becoming easily annoyed or irritable: 0 = Not at all Feeling afraid as if something awful might happen: 0 = Not at all Total LI-7 score (0-4 normal; 5-9 mild; 10-14 moderate; 15-21 severe): 0 Source: Developed by Drs. Yann Frausto, Kelly Johnson, Ellis Berumen and colleagues, with an educational lisette from [employer]. LI-7 Assessment Billing LI-7 Assessment Tool: LI-7 Assessment 65784 Review of Systems Const All systems reviewed & are unremarkable except as noted in HPI and below Card Denies chest pain at rest, Denies chest pain with activity, Denies edema, Denies irregular heart rhythm, Denies claudication, Denies dyspnea, Denies dyspnea on exertion, Denies orthopnea, Denies paroxysmal nocturnal dyspnea and Denies slow heart rate Resp Denies cough, Denies dyspnea and Denies dyspnea on exertion GI Denies abdominal pain, Denies change in bowel habits, Denies excessive flatus, Denies nausea and Denies vomiting Denies urinary incontinence, Denies urinary hesitancy and Denies urinary urgency Musc Denies atrophy, Denies deformity and Denies limited range of motion Skin/Breast Denies bleeding lesions, Denies changing lesions and Denies rash Physical exam (Primary Care) Vital Signs: Last Vital Signs Pulse 76 12/04/24 10:35 BP 132/80 12/04/24 10:35 Pulse Ox 97 12/04/24 10:35 Oxygen Delivery Method Room Air 12/04/24 10:35 BMI result Body Mass Index 43.6 BMI Assessment/Plan discussion: High BMI High, discussed plan: lifestyle, weight reduction, dietary and physical activity Tobacco/Smoking Status: Tobacco use Status Tobacco use date assessed 12/04/24 12/04/24 10:37 Patient Tobacco Use Status Never used Tobacco 12/04/24 10:37 e-Cigarette/Vaping Use Never Used 12/04/24 10:37 PHQ-9: PHQ-9 Score PHQ-9: Total score 3 12/04/24 10:57 Depression Screening Interpretation: Positive Depression Screening Follow-up: Existing condition and Follow-up Visit Requested Thrive Assessment: Date of Thrive Assessment Date Thrive assessed 12/04/24 12/04/24 10:37 Currently or been in a relationship where the following occur: No concerns reported Eyes General: appearance normal, both eyes and all related structures Eyelids: Yes eyelids normal Conjunctivae: conjunctivae normal Neck Neck: Yes normal visual inspection and Yes supple Resp Effort & Inspection: normal respiratory effort Auscultation: clear to auscultation bilaterally Cardio Jugular venous distension: no JVD Rate: regular rate Rhythm: regular rhythm Heart sounds: S1 normal heart sound present and S2 normal heart sound present GI Inspection: Yes normal to inspection Palpation (GI): Soft to palpation and nontender Auscultation: normal bowel sounds Skin General skin exam: no rashes or lesions noted Neuro General: no focal motor deficits Extrem General: Yes full ROM Psych Appearance: grossly normal Coding Level of Care Code Est Pt Level 3 (30576) Est Pt Prev Care >65y(00103) Diagnoses Physical exam Z00.00 Morbid obesity with BMI of 40.0-44.9, adult E66.01; Z68.41 Paroxysmal atrial fibrillation I48.0 Additional Codes LI-7 Assessment Billing - LI-7 Assessment Tool: LI-7 Assessment 56740 ([id number]) PHQ-9 - 18743 - PHQ-9 Billing: Yes ([id number]) Time Spent (min) 35 Assessment & Plan Assessment & Plan (1) Physical exam: Code(s): Z00.00 - Encounter for general adult medical examination without abnormal findings Category: Medical (2) Morbid obesity with BMI of 40.0-44.9, adult: Code(s): E66.01 - Morbid (severe) obesity due to excess calories; Z68.41 - Body mass index [BMI] 40.0-44.9, adult Category: Medical (3) Paroxysmal atrial fibrillation: Code(s): I48.0 - Paroxysmal atrial fibrillation Category: Medical Plan Plan Patient was informed and verbally consented to the use of an ambient scribe for clinic note documentation during this visit. 1. Physical exam The patient is recommended to undergo a colonoscopy due to a significant family history of colon cancer, including a brother and sister with the condition. A referral to gastroenterology has been made to facilitate this screening. The patient is overdue for a mammogram, with the last screening conducted in June of the previous year. A follow-up mammogram has been ordered to ensure continued breast health monitoring. The patient is due for a bone densitometry screening, as the last one was con ducted in 2022. This screening is important for assessing bone health and preventing osteoporosis. 2.. Atrial Fibrillation The patient continues to manage atrial fibrillation with Eliquis, which is part of her ongoing treatment regimen. 3. Morbid Obesity Start Zepbound to reach BMI goal less than 3. She has JOHN on CPAP, pure hypercholesterolemia and atrial fibrillation. Orders: Orders XR DEXA axial skeleton Today Z78.0 - Asymptomatic menopausal state MM tomosynthesis screening BI Today Z12.31 - Encounter for screening mammogram for malignant neoplasm of breast Referrals Gastroenterology Referral Z12.11 - Encounter for screening for malignant neoplasm of colon Medications: New tirzepatide (weight loss) (Zepbound) for 4 weeks 2.5 mg (0.5 mL) subcut QWEEK 2 mL 0RF 4 weeks E66.01 - Morbid (severe) obesity due to excess calories, Z68.41 - Body mass index [BMI] 40.0- 44.9, adult
--- OUTSIDE RECORDS SUMMARY | 2024-12-04 11:58 | XMS_ITS | Encounter Summary ---
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
--- OUTSIDE RECORDS SUMMARY | 2024-12-04 11:58 | XMS_ITS | Clinical Summary ---
Author Organization [employer] [facility] Address [address] [place] [address] Care Team Providers Care Deflash And Wash Operator Name Role Phone Unavailable Primary Care [...] Description 09/10/2024 1:30 PM EDT Office Visit [facility] [address] [place] [address] Akosua Nelson Excessive attrition of teeth (Primary [...] 1-dose series) 2018 COVID-19 Vaccine ( season) 2024 04/03/2021, 02/28/2021 Influenza Vaccine (#1) [...] from Last 3 Months Insurance DENTAL - [facility]
--- OUTSIDE RECORDS SUMMARY | 2024-12-04 11:58 | XMS_ITS | Clinical Summary ---
Author Organization [address] [facility] g Address [address] [place] [address] Phone Care Team Providers Care Margin Trimmer Name Role Phone Simran Thompson MD Primary Care Provider [phone] Allergies Active Allergy Reactions Criticality Noted Date [...] AM EST Office Visit Orth[facility] Surgery - [place] [address] [address] Dc Payne, DPM [address] [address] Health Maintenance Due Date Last [...] patient's age to complete this topic Insurance [facility] MEDICARE Member Subscriber Plan / Payer (Ef fective 2023-Present) Name:FABIOLA LEDESMA Relation to Subscriber:Self Name:Fabiola Ledesma Payer ID:[id number] Group ID:[id number] Type:Not on file Address: [facility] [address] [id number] Care Teams Margin Trimmer Relationship Specialty Start Date End Date Simran Thompson MD [address] [facility] D/B/A: [facility] Mckeon PCP - General Internal Medicine 09/05/16
--- OUTSIDE RECORDS SUMMARY | 2024-12-04 11:58 | XMS_ITS | Encounter Summary ---
Author Organization [facility] Address [address] [place] [address] Care Team Providers Care Threading Machine Operator Name Role Phone Unavailable Primary Care Provider Unavailabl e Reason for Visit * Reason Onset Date Comments Appointment 06/13/2022 Encounter Details Date Type Department Care Team (Late st Contact Info) Description 06/13/2022 Telephone [facility] [address] [place] [address] Syeda, Meghann [address] [place] [address] Appointment Social History Tobacco Use Types Packs/Day [...] 2:56 PM EDT [facility] since 08/2021 for cleaning exam and xrays and checking in on status of appt DR documented in this encounter Plan of Treatment Not on file documented as of this encounter Visit Diagnoses Not on filedocumented in this encounter
== END 2024-12-04 11:13 | disposition home or self-care (01) ==
LOC: HO.HMCH 10:30
PROVIDERS: PCP Internal Medicine; Visit Provider Internal Medicine
DX: Z00.00 Encounter for general adult medical examination without abnormal findings (principal); I48.0 Paroxysmal atrial fibrillation; E66.01 Morbid (severe) obesity due to excess calories; Z68.41 Body mass index [BMI] 40.0-44.9, adult

== ENCOUNTER → 2024-12-04 10:29 | Outpatient (BNVA) | payer OTHER, SELFPAY | PROVIDERS: PCP Internal Medicine; Visit Provider Internal Medicine | DX: Z00.00 Encounter for general adult medical examination without abnormal findings (principal); I48.0 Paroxysmal atrial fibrillation; E66.01 Morbid (severe) obesity due to excess calories; Z68.41 Body mass index [BMI] 40.0-44.9, adult; Z79.01 Long term (current) use of anticoagulants | CPT/HCPCS: 96127; 99212; 99397 ==

== ENCOUNTER 2025-02-12 09:20 | Outpatient (REF) | payer OTHER, SELFPAY ==
--- NOTE | ~2025-02-12 | MM_ITS ---
EXAMINATION: MM SCREENING DIGITAL BREAST TOMOSYNTHESIS, RIGHT CLINICAL INFORMATION: Screening. Asymptomatic. Patient gives history of benign left needle core biopsy in [place]. COMPARISON: Mammography: Comparison is made with available priors TECHNIQUE: Digital breast mammography with tomosynthesis is performed in both the craniocaudal and mediolateral oblique views along with computer-aided detection (CAD). FINDINGS: There are scattered areas of fibroglandular density. Left: Left marker clip. There are no significant masses, abnormal calcifications, or other abnormalities. Right: Asymmetry retroareolar region anterior depth on MLO view. No suspicious calcifications or other abnormal findings. MM/MM tomosynthesis screening BI IMPRESSION: Additional imaging is recommended ASSESSMENT: BI-RADS Category 0: Incomplete - Need additional Imaging Evaluation RECOMMENDATION: 1. Additional views of the right breast. 2. Targeted ultrasound if warranted after review of the additional views. 3. Radiology department staff will contact the patient for additional imaging. Additional Imaging required This examination should not preclude the clinical evaluation of a suspicious palpable abnormality. This patient's information was entered into a reminder system with a target due date for their next mammogram. Electronically signed by: Akilah Alva DO 02/16/2025 09:16 AM [facility]
--- NOTE | ~2025-02-12 | MM_ITS ---
EXAMINATION: DXA BONE DENSITY AXIAL HISTORY: Z78.0 - Asymptomatic menopausal state TECHNIQUE: THE [employer] Dual energy absorptiometry (DEXA) of the lumbar spine, total left hip, and femoral neck was performed. COMPARISON: Comparison is made with the prior examination dated 09/21/2022. FINDINGS: The bone mineral density of the lumbar spine is 0.919 g/cm2, corresponding to a T-score of -2.2, and a Z-score of -1.7. This is indicative of osteopenia.- This represents a BMD change of 6.0% compared to the prior exam. This is statistically significant. The bone mineral density of the left total hip is 0.787 g/cm2, corresponding to a T-score of -1.8, and a Z-score of -1.3. This is indicative of osteopenia. This represents a BMD change of 10.5% compared to the prior exam. This is statistically significant. The bone mineral density of the left femoral neck is 0.753 g/cm2, corresponding to a T-score of -2.1, and a Z-score of -1.3. This is indicative of osteopenia. This represents a BMD change of -0.9% compared to the prior exam. FRACTURE RISK: The FRAX index suggests a ten year probability of major osteoporotic fracture of 5.5%, and of hip fracture 0.8%. MM/XR DEXA axial skeleton IMPRESSION: Based on bone mineral density, and according to World Health Organization (WHO) criteria, the diagnosis is consistent with osteopenia. Statistically, 68% of repeat scans fall within 1 SD (+/- 0.010 g/cm2 for AP spine L1-L4) and 1 SD (+/- 0.012 g/cm2 for femur total) FRAX is a trademark of the [employer] [place] [employer], a World Health Organization (WHO) Collaborating Center. Electronically signed by: Yann Perez MD 02/12/2025 10:22 AM [facility]
== END 2025-02-12 09:21 | disposition home or self-care (01) ==
LOC: HO.MAMMO 09:20
PROVIDERS: PCP Internal Medicine; Visit Provider Internal Medicine
DX: Z12.31 Encounter for screening mammogram for malignant neoplasm of breast (principal); Z78.0 Asymptomatic menopausal state
CPT/HCPCS: 77063; 77067; 77080

== ENCOUNTER → 2025-02-12 09:30 | Outpatient (BNV) | payer OTHER, SELFPAY | PROVIDERS: PCP Internal Medicine; Visit Provider Radiology Diagnostic Radiology | DX: E28.39 Other primary ovarian failure (principal) | CPT/HCPCS: 77080 ==

== ENCOUNTER 2025-03-01 10:27 | Outpatient (AMB) | payer OTHER, SELFPAY ==
[2025-03-01 10:30] VITALS: BP 110/56; PULSE 84; O2SAT 99; BMI 43.1
--- NOTE | 2025-03-01 10:30 | A.OFFVIS_ITS ---
Vital Signs 03/01/25 10:30 Height 5 ft 2 in Weight 235 lb 14.314 oz BMI 43.1 BP 110/56 L Blood Pressure Location Lt brachial Position Sitting Pulse 84 Pulse Source Pulse Oximeter Pulse Oximetry (%) 99 Oxygen Delivery Method Room Air Intake Visit Reasons: Obstructive sleep apnea Elementary Spanish Teacher Required: Yes Elementary Spanish Teacher Services: Elementary Spanish Teacher Offered & Declined Elementary Spanish Teacher Name: MD speaks wolof Field Services Director: Field Services Director offered & declined Accompanied by: Other Relationship Allergies naproxen Allergy (Severe, Verified 03/01/25 10:33) muscle aches sertraline Allergy (Severe, Verified 03/01/25 10:33) muscle aches amoxicillin (From Augmentin) Allergy (Mild, Verified 03/01/25 10:33) Unknown clavulanic acid (From Augmentin) Allergy (Mild, Verified 03/01/25 10:33) Unknown HPI Comments Details: The patient is a 65-year-old woman known history of asthma in addition to a cardiac history including atrial fibrillation and hypertension. She has been having worsening daytime drowsiness. Also complaining of headaches. In also with her cardiac history she did undergo a sleep study at the laboratory. It demonstrated that she did have izsp-fp-srygizwu obstructive sleep apnea. She also has significant desaturations down to 83%. She then underwent titration study recommended that she should start CPAP therapy. The CPAP therapy was affecting beneficial. Initially she started with a nasal mask but then switched over to a fullface mask that apparently work better. At this point we did go over the therapy for obstructive sleep apnea and with her cardiac history I did recommend she start CPAP therapy. She is agreeable to this and we will set her up with a local [employer]. In the meantime she does complaint of nasal congestion also shortness of breath. She does have a history of asthma. She does have a rescue inhaler that she uses as needed. She has not had to use in the last week. Although she feels like she is getting more congested. 11/28/2021 the patient is here for a pulmonary follow-up visit. The patient overall has been doing relatively well. Although she is having increased daytime drowsiness. She start using the CPAP. She could not tolerated. She is also having issues with tachycardia and SVT. She will be followed up with a truck loader soon. Explained to her that this may be from untreated sleep apnea. The patient would like to hold off on the CPAP for now. Patient is no longer getting supplies likely based on the fact that she has been using it. If she does want to go back to using it she will have to probably get another sleep study to get reoccur intubated with a DME company. Once she wants to start using it she can always call the office so we can reset the machine to a pressure that she can not tolerate better. From a respiratory status the guillermo ent is doing relatively well. She is using her rescue inhaler on a regular basis usually on a daily basis. Therefore, at this point the patient will be started on maintenance inhaler with hopes that she does not require her rescue inhaler as often. The patient is agreeable to this. 05/28/2022 the patient is here for a pulmonary follow-up visit. The patient has been doing well from a respiratory status. Weight did send her prescription for Breo. She does not use it all the time. Explained to her that she should definitely use it routinely. She also has a rescue inhaler that she can use as needed. The patient is breathing well and denies any significant shortness of breath. Her main issue is her knee discomfort keeping her from being able to move exercise regularly. In addition to this the patient has not been using the CPAP. She rather not use it. She is waking up rested. Her [place] score is 7/24. She is going to continue to try positional therapy. Unfortunately though she has having hard time sleeping on her sides because she is having some left- sided discomfort in her flank. The patient was evaluated by her primary care doctor who ordered a renal ultrasound demonstrating either a cyst or a dilated pelvis of the kidney. I did give her the report and she needs to talk to her primary care doctor regarding the abnormal finding. It is a clear this was ca using the discomfort but still should be looked that the since the patient continues to be symptomatic. 11/20/2022 the patient is here for a pulmonary follow-up visit. Overall she is doing well from a respiratory status. She is no longer using the Breo inhaler. She does use her rescue inhaler but typically less than 2 times a week. Does have dyspnea on exertion. Some component of deconditioning. in addition to this the patient has not been using CPAP. We did talk about the importance of positional therapy for sleep apnea. She does wake up rested. Her [place] score is around 7/24. She continues on her cardiac medications. Otherwise patient is without any other complaints. Will have her return in 6 months with a follow-up chest x-ray at that time. If the patient has any worsening symptoms prior to the next visit she is to call the office for an earlier assessment. 05/17/2023 the patient is here for a pulmonary follow-up visit. She still complains of dyspnea on exertion. Owic-tu-jnvgveis severity. With minimal activity. She also complains of worsening lower extremity edema. She has been struggling with this for some time. She is already on diuretics. We did talk about dietary indiscretions. This continue low-sodium diet. 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 The patient also has not been using her CPAP and explained to her that can also resulting worsening lower extremity edema. In view of the worsening shortness of breath in the lower extremity edema will request a chest x-ray and also an echocardiogram. Will reassess her with an overnight oximetry as well. In the meantime she should try the compression stockings. Continue with current respiratory medications and follow-up after her studies. 08/12/2023 the patient is here for pulmonary follow-up visit. Overall the patient has been doing fairly well from a respiratory status. She still has lower extremity edema although better. She had difficulties with a compression socks because it caused some bruising. In addition to that she did have the echocardiogram which we personally reviewed. She has a normal cardiac function which is reassuring. Her overnight oximetry is also reassuring. The patient does not qualify for oxygen. She did have worsening cough several weeks ago. The patient was taken to urgent care where she was given prednisone which improve her cough significantly. She had been on Breo but she was taken off Breo since she was doing well. At this point she clinically sounds well without any wheezing. If she notices the cough restart she can start the Breo. She does have some persistent chest congestion. I did send her a tri-pack. 01/20/2024 the patient is here for a pulmonary follow-up visit. Overall she is doing okay from a respiratory status. Recently she was switched over from aspirin to Eliquis because of the atrial fibrillation. She was initially reluctant but I did reassure her that was the best option for her. In addition to that she does use her rescue inhaler. Although she does not use it often. I would switch over to Xopenex to try to minimize on any cardiac irritation. She still can uses as needed. The patient also complains of shortness breath while sleeping. She does have history of asthma so will go ahead and request an overnight oximetry. She is trying to use lower extremity compression stockings although difficult for her to tolerate. She is taking her diuretics with good effect. In addition to that, she had a chest x-ray back in May 2023 that I personally reviewed. Seems to have increased reticular markings could be volume overload status as she did have increased cardiac size. Will go ahead and repeated at this time. The patient follow-up in 4-6 months. 09/03/2024 the patient is here for pulmonary follow-up visit. Overall the patient has been doing okay from a respiratory status. She is responding well to the current respiratory regimen. Several weeks ago she had been sick with a respiratory illness. She did not seek any medical advice. She did stay home and uses her inhaler and also some oaww-ags-sdufdnl cough medications. Right now she is back to her baseline. She does have a nebulizer. I did give her ampules for her nebulizer and also some tubing that she can use in case she gets sick again she should restart using the nebulizer twice a day. She can also call for further recommendations. In the meantime she is going to continue with the respiratory therapy. From a sleep standpoint she is doing well. I did review the overnight test she had back in July of 2023 with her demonstrating that she did not need any oxygen supplementation. She will continue with positional therapy at this time since she could not tolerate CPAP. Will follow- up in 6 months if she has any issues prior to this she will call for an earlier assessment. 03/01/2025 the patient is here for pulmonary follow-up visit. Overall she is doing well from a respiratory status. She does complaint of dyspnea on exertion. Ejzs-ti-rdishmbe severity with activity. Usually improves with rest. Denies any significant shortness of breath or significant coughing. The patient has been sleeping well. She has not been using the CPAP. She did not tolerate it. She is recommended to follow the positional therapy by sleeping on her side and avoid sleeping on her back. The patient is scheduled to undergo an endoscopy including EGD and colonoscopy with GI. At this point she is medically stable to proceed with anesthesia and her GI procedures at this time. Otherwise the patient is doing well we did look at her last chest x-ray from July without any acute disease. She has to work on posture she since she has a little bit more lordosis. In addition to that she will come back in around 6-8 months will plan to do pulmonary function studies done to assess her dyspnea on exertion.. [facility] Medical History Dyspnea Swelling of lower extremity Gross hematuria Onychomycosis Polyarthralgia Chronic back pain Migraine Hypovitaminosis D Paroxysmal atrial fibrillation Morbid obesity with BMI of 40.0-44.9, adult Sinusitis GERD (gastroesophageal reflux disease) Pure hypercholesterolemia Obesity JOHN on CPAP Asthma Surgical History Hx of colonoscopy History of pterygium excision History of total abdominal hysterectomy and bilateral salpingo-oophorectomy History of section History of appendectomy Family History Father CVD (cardiovascular disease) Mother Hypertension Brother Colon cancer Sister Colon cancer Thyroid cancer Sister Lupus Maternal Aunt Breast cancer Family/Other FH: mental illness Social History Housing: Apartment Alcohol intake: never Patient Tobacco Use Status: Never used Tobacco e-Cigarette/Vaping Use: Never Used Second Hand Smoke Exposure: No service: No Current occupational status: disabled Cognitive needs: No Hearing needs: No Vision needs: Yes Review of Systems Const Denies daytime sleepiness and Denies weakness ENT Denies dizziness Card Reports leg edema, Denies palpitations and Reports dyspnea on exertion Resp Reports cough, Reports dyspnea on exertion and Denies wheezing GI Denies hematochezia and Denies change in stool character Reports flank pain Musc Denies numbness Neuro Denies dizziness, Denies numbness and Denies weakness Endo Denies palpitations Aller/Immun Denies wheezing Physical Exam Vital Signs: Last Vital Signs Pulse 84 03/01/25 10:30 BP 110/56 L 03/01/25 10:30 Pulse Ox 99 03/01/25 10:30 Oxygen Delivery Method Room Air 03/01/25 10:30 BMI result Body Mass Index 43.1 Const General: alert Neck Neck: Yes normal visual inspection, Yes full ROM and Yes no lymphadenopathy Chest Chest palpation & inspection: normal inspection of the chest Resp Effort & Inspection: normal respiratory effort Auscultation: diminished lung sounds Cardio Rate: regular rate Rhythm: regular rhythm Heart sounds: S1 normal heart sound present and S2 normal heart sound present GI Palpation (GI): Soft to palpation and nontender Auscultation: normal bowel sounds Skin General skin exam: rashes and/or lesions noted Extrem General: Yes edema Office Procedures Flu Questionnaire Does the patient have a severe egg allergy?: No Does the patient have severe life threatening allergies?: No Does the patient have a fever or illness today?: No Has the patient ever had Guillain-[place] Syndrome?: No Has the patient ever had any past reaction to a flu shot?: No Immunizations Fluarix [id number] (PF) 45 mcg (15 mcg x 3)/0.5 mL IM syringe Performing Provider: Farrukh Eng MD Performing Location: [facility] Administered by: Yanira Ibarra LPN on 03/01/25 11:02 Dose Route Admin Location Dispensed Lot Number Expiration Date NDC Captain Fishing Vessel 0.5 mL IM Left Deltoid 0.5 mL [id number] 09/07/25 [id number] [employer] VIS Given Date VIS Provided VIS Publication Date 03/01/25 Single Vaccine 24 Eligibility Eligibility Date Funding Source Not [facility] Eligible 03/01/25 Private Assessment & Plan Assessment & Plan (1) Dyspnea: Code(s): R06.00 - Dyspnea, unspecified Category: Medical Qualifiers: Dyspnea type: dyspnea on exertion Qualified Code(s): R06.09 - Other forms of dyspnea (2) Asthma: Code(s): J45.909 - Unspecified asthma, uncomplicated Category: Medical Qualifiers: Asthma complication type: uncomplicated Asthma persistence: persistent Asthma severity: moderate Qualified Code(s): J45.40 - Moderate persistent asthma, uncomplicated (3) GERD (gastroesophageal reflux disease): Code(s): K21.9 - Gastro-esophageal reflux disease without esophagitis Category: Medical Qualifiers: Esophagitis presence: esophagitis presence not specified Qualified Code(s): K21.9 - Gastro-esophageal reflux disease without esophagitis (4) Pre-op chest exam: Code(s): Z01.811 - Encounter for preprocedural respiratory examination Category: Medical Plan Proceed with anesthesia and EGD/colonoscopy MATHEW as needed, xopenex positional therapy diuresis as tolerated sleep with the head of the elevated compression stockings as tolerated overnight oximetry on RA ok F/U 6-8 months Orders: Orders Influenza [id number] Immunization Today Z23 - Encounter for immunization Coding Level of Care Code Est Pt Level 4 (84896) Diagnoses Dyspnea on exertion R06.09 Dyspnea type: dyspnea on exertion Moderate persistent asthma without complication J45.40 Asthma complication type: uncomplicated Asthma persistence: persistent Asthma severity: moderate Gastroesophageal reflux disease, unspecified whether esophagitis present K21.9 Esophagitis presence: esophagitis presence not specified Pre-op chest exam Z01.811 Time Spent (min) 16
--- OUTSIDE RECORDS SUMMARY | 2025-03-01 12:50 | XMS_ITS | Encounter Summary ---
Author Organization [facility] Address [address] [place] [address] Care Team Providers Care Product Development Carpenter Name Role Phone Unavailable Primary Care Provider Unavailabl e Encounter Details Date Type Department Care Team (Latest Contact Info) Description 09/05/2018 Abstract [facility] CONVERSIONS Dental, Provider, DDS Social History Tobacco Use Types Packs/Day Years Used Date Smoking Tobacco: Never Assessed Comments Unknown Sex and Gender Information Value Date Recorded Sex Assigned at Female 01/08/2022 10:18 AM EDT Legal Sex Female 10:18 AM EDT Gender Identity Female 01/08/2022 10:18 AM EDT Sexual Orientation Straight 01/08/2022 10 :18 AM EDT documented as of this encounter Plan of Treatment Upcoming Encounters Date Type Department Care Team (Late st Contact Info) Description 03/23/2025 2:15 PM EST Office Visit [facility]ULT [facility] [address] [place] [address] Rodri Landaaris [address] [place] [address] documented as of this encounter Visit Diagnoses Not on filedocumented in this encounter
--- OUTSIDE RECORDS SUMMARY | 2025-03-01 12:50 | XMS_ITS | Clinical Summary ---
Author Organization [employer] Address [address] [place] [address] Care Team Providers Care Radiator Specialist Name Role Phone Unavailable Primary Care Provider [...] 04/12/2015 Mild persistent asthma 04/12/2015 Morbid obesity (CMS/HCC) 04/12/2015 Social History Tobacco Use Types Packs/Day Years Used Date Smoking Tobacco: Never Assessed Comments Unknown Sex and Gender Information Value Date Recorded Sex Assigned at Female 01/08/2022 10:18 AM EDT Legal Sex Female 10:18 AM EDT Gender Identity Female 01/08/2022 10:18 AM EDT Sexual Orientation Straight 01/08/2022 10 :18 AM EDT Plan of Treatment Upcoming Encounters Date Type Department Care Team (Late st Contact Info) Description 03/23/2025 2:15 PM EST Office Visit [facility] [address] [place], [place] [id number] Syeda, Meghann [address] [place] [address] Health Maintenance Due Date Last Done Comments CT Colonography 1958 Colonoscopy 1958 Colorectal Cancer Screening 1960 Depression Screening 1958 FIT DNA/Cologuard 1958 FIT 1958 FOBT 1958 Lipid Panel 1958 SDOH Screening 1960 Sigmoidoscopy 1958 Alcohol/Substance Use Screening 1970 Tobacco Screening 1970 Hepatitis C Screening 02/03/1976 Mammogram 1998 RSV Patients and Patients Aged 60 years or older (1 - Risk 50-74 years 1-dose series) 02/03/2008 Zoster Vaccines (1 of 2) 02/03/2008 COVID-19 Vaccine ( season) 2024 04/03/2021, 02/28/2021 [...] Procedure Name Priority Date/Time Associated Diagnosis Comments Full PROPHYLAXIS - ADULT Routine 025 1:30 PM EDT INTRAORAL - COMPLETE SERIES OF RADIOGRAPHIC IMAGES Routine 09/10/2024 1:30 PM EDT PERIODIC ORAL EVALUATION - ESTABLISHED PATIENT Routine 09/10/2024 1:30 PM EDT Gingival bleeding Dental plaque Dental calculus Missing teeth, acquired from Last 3 Months or Most Recently Relevant to Health Maintenance Insurance DENTAL - [facility] [place]
--- OUTSIDE RECORDS SUMMARY | 2025-03-01 12:50 | XMS_ITS | Encounter Summary ---
Author Organization [employer] [facility] Address [address] [place] [address] [address] [place] [address] Care Team Providers Care Recovery Room Rn Name Role Phone Unavailable Primary Care Provider Unavailabl e Reason for Visit * Reason Onset Date Comments Appointment 06/13/2022 Encounter Details Date Type Department Care Team (Late st Contact Info) Description 06/13/2022 Telephone [facility] [address] [place] [address] Meghann Landa [address] [place] [address] Appointment Social History Tobacco Use Types Packs/Day [...] 2:56 PM EDT Patient on waitlist in [facility] since 08/2021 for cleaning exam and xrays and checking in on status of appt DR documented in this encounter Plan of Treatment Upcoming Encounters Date Type Department Care Team (Late st Contact Info) Description 03/23/2025 2:15 PM EST Office Visit [facility] [address] [place] [address] Rodri Landaaris [address] [place] [address] documented as of this encounter Visit Diagnoses Not on filedocumented in this encounter
--- OUTSIDE RECORDS SUMMARY | 2025-03-01 12:50 | XMS_ITS | Clinical Summary ---
Author Organization [address] [facility] Address [address] [place] [address] Phone Care Team Providers Care Model And Pattern Supervisor Name Role Phone Simran Thompson MD Primary Care Provider Allergies Active Allergy Reactions Criticality Noted Date Comments Amoxicillin-Pot Clavulanate 05/13/19 25 Medications ammonium lactate (AmLactin) 12 % lotion Apply topically if needed for dry skin. 400 g 5 05/15/19 26 Active albuterol HFA (Ventolin HFA) 90 mcg/actuation inhaler INHALE 2 PUFFS EVERY 6 HOURS NEEDED FOR WHEEZE OR FOR SHORTNESS OF BREATH Active Eliquis 5 mg tablet Take 1 tablet (5 mg total) by mouth 2 (two) times a day. Active aspirin 81 mg EC tablet Take 1 tablet (81 mg total) by mouth 1 (one) time each day. 4 Active atorvastatin (LIPITOR) 40 mg tablet Take 1 tablet (40 mg total) by mouth at bedtime. Active calcium carbonate (OS-BRIAN) 1,250 mg (500 mg elemental calcium) tablet Take 2 tablets (2,500 mg total) by mouth 1 (one) time each day. Active carvediloL (COREG) 6.25 mg tablet Take 1 tablet (6.25 mg total) by mouth 2 (two) times a day. Active cholecalciferol (VITAMIN D-3) 25 mcg (1,000 unit) tablet Take 1 tablet (1,000 Units total) by mouth 1 (one) time each day. Active diclofenac (VOLTAREN) 0.1 % ophthalmic solution 1 drop 4 times daily. Active furosemide (LASIX) 20 mg tablet Take 1 tablet (20 mg total) by mouth 1 (one) time each day. Active gabapentin (NEURONTIN) 300 mg capsule Take 1 capsule (300 mg total) by mouth at bedtime. 5 Active levalbuterol (XOPENEX) 1.25 mg/3 mL nebulizer solution USE 1 VIAL INHALED 2 TIMES A DAY FOR 30 DAYS 5 Active montelukast (SINGULAIR) 10 mg tablet Take 1 tablet (10 mg total) by mouth 1 (one) time each day. Active levalbuterol (XOPENEX HFA) 45 mcg/actuation inhaler TAKE 2 PUFF INHALED EVERY 6 HOURS NEEDED FOR SHORTNESS OF BREATH OR WHEEZING FOR 30 DAYS 5 Active oxyCODONE-aceta minophen (Percocet) 5-325 mg per tablet Take by mouth. 5 Active pantoprazole (PROTONIX) 40 mg EC tablet Take 1 tablet (40 mg total) by mouth 1 (one) time each day. Active sucralfate (CARAFATE) 100 mg/mL suspension TAKE 10 ML ORALLY 4 TIMES A DAY NEEDED FOR REFLUX SWISH IN MOUTH AND SWALLOW USE AFTER FOOD/DRINK 5 Active triamcinolone (KENALOG) 0.5 % cream APPLY TOPICALLY 2 TIMES A DAY NEEDED FOR RASH FOR 30 DAYS 4 Active ketoconazole (NIZORAL) 2 % cream Apply topically 1 (one) time each day. 30 g 2 5 Active Encounters Date Type Department Care Team Description 01/20/2025 10:00 AM EST Office Visit Orthopedic Surgery - [address] [address] Dc Payne, DPM Ingrowing nail (Primary Dx); Dermatophytosis of nail; Metatarsalgia of right foot; Pain in toe of left foot; Bilateral femoral artery stenosis (CMS/HCC V24); Pain in toe of right foot; Corns and callosities; Metatarsalgia of left foot from Last 3 Months Social History Tobacco [...] Care Team (Late st Contact Info) Description 04/22/2025 10:00 AM EST Office Visit Orthopedic Surgery - [place] [address] [address] Dc Payne, DPM [address] [address] Health Maintenance Due Date Last Done Comments Breast Cancer Screening 1960 Colorectal Cancer Screening: Colonoscopy 1958 RSV Immunization Adult Patients (1 - Risk 50-74 years 1-dose series) 02/03/2008 Zoster Vaccines (1 of 2) 02/03/2008 Cholesterol Screening (Lipid Panel) 03/05/2024 Falls Risk Assessment 03/05/2024 Hepatitis C Screening 03/05/2024 Medicare Annual Wellness Visit 03/05/2024 Osteoporosis Screening (Bone Density Screening) 03/05/2024 Social Influencers of Health Screening 03/05/2024 Depression Screening 03/11/2024 COVID-19 Vaccine ( - season) 2024 04/03/2021, 02/28/2021 Influenza Vaccine [...] age to complete [place] [id number] [employer] MEDICARE Member Subscriber Plan / Payer (Ef fective 2023-Present) Name:FABIOLA LEDESMA Relation to Subscriber:Self Name:Fabiola Ledesma Payer ID:[id number] Group ID:[id number] Type:Not on file Address: [place] [address] [place] [phone] Care Teams Model And Pattern Supervisor Relationship Specialty Start Date End Date Simran Thompson MD [address] [facility] , [address] [facility] D/B/A: [facility] Mckeon PCP - General Internal Medicine 09/05/16
== END 2025-03-01 11:00 | disposition home or self-care (01) ==
LOC: HO.HPS 10:27
PROVIDERS: PCP Internal Medicine; Visit Provider Hospitalist
DX: R06.09 Other forms of dyspnea (principal); J45.40 Moderate persistent asthma, uncomplicated; K21.9 Gastro-esophageal reflux disease without esophagitis; Z01.811 Encounter for preprocedural respiratory examination; Z23 Encounter for immunization
CPT/HCPCS: 99214

== ENCOUNTER → 2025-03-01 10:27 | Outpatient (BNVA) | payer OTHER, SELFPAY | PROVIDERS: PCP Internal Medicine; Visit Provider Hospitalist | DX: Z01.811 Encounter for preprocedural respiratory examination (principal); R06.09 Other forms of dyspnea; K21.9 Gastro-esophageal reflux disease without esophagitis; J45.40 Moderate persistent asthma, uncomplicated; Z23 Encounter for immunization | CPT/HCPCS: 90471; 90656; 99212 ==